=== PATIENT | male | born 1945 | race Caucasian/White ===

== ENCOUNTER → 2017-12-01 | Outpatient (CLI) | payer MEDICARE, OTHER ==
[2017-12-01 10:30] LABS: HGB 13.2 gm/dL (13.0-17.5); MCHC 33.8 g/dL (31.0-37.0); MCV 91.7 fL (80.0-100.0); Mean Platelet Volume 8.5; Platelet Count 175 k/uL (150-450); RBC 4.26 m/uL (4.30-5.90); RDW 14.4 % (11.5-15.5); WBC 6.1 k/uL (3.8-10.6)
[2017-12-01 10:36] LABS: Anion Gap 10 mmol/L; Blood Urea Nitrogen 16 mg/dL (9-20); Calcium 9.7 mg/dL (8.4-10.2); Carbon Dioxide 28 mmol/L (22-30); Chloride 101 mmol/L (98-107); Glucose 113 mg/dL (74-99); Potassium 4.6 mmol/L (3.5-5.1); Sodium 139 mmol/L (137-145)
== END | disposition home or self-care (01) ==
LOC: LABWHC1 09:47
PROVIDERS: ATTEND Internal Medicine Clinical Cardiac Electrophysiology
DX: I25.5 Ischemic cardiomyopathy (principal); I50.22 Chronic systolic (congestive) heart failure
CPT/HCPCS: 36415; 80048; 85027

== ENCOUNTER 2017-12-08 13:45 | Day surgery (SDC) | payer MEDICARE, OTHER ==
[2017-12-02 15:45] VITALS: BMI 27.1
[~2017-12-08 13:45] MED LIST: LACTATED RINGERS 1,000 ML IV SCH; SODIUM CHLORIDE 0.9% 1,000 ML IV SCH
[2017-12-08] MEDS ORDERED: ceFAZolin IN SWFI 2 GM/20 ML SYRINGE IVP ONE (14:00)
[2017-12-08] MEDS ORDERED: fentaNYL (PF) 50 MCG/ML 2 ML AMP ONE (17:49)
[2017-12-08] MEDS ORDERED: PROPOFOL 10 MG/ML 20 ML VIAL IV ONE (17:49)
[2017-12-08] MEDS ORDERED: MIDAZOLAM 2 MG/2 ML VIAL ONE (17:49)
[2017-12-08] MEDS ORDERED: IOPAMIDOL-370 50ML BTL INJ ONE (18:08)
[2017-12-08] MEDS: ceFAZolin 1,000 MG in SODIUM CHLORIDE 0.9% IRRIGATIO 250 ML IRRIGATION ONE ×2 (18:25→19:06)
[2017-12-08] MEDS ORDERED: LIDOCAINE 2% INJ 20 MG/ML SQ ONE (18:31)
[2017-12-08] MEDS ORDERED: LIDOCAINE 1% INJ 10MG/ML (20 ML MDV) SQ ONE (18:42)
[2017-12-08] MEDS ORDERED: SODIUM CHLORIDE 0.9% 500 ML IV ONE (19:37)
[2017-12-08] MEDS ORDERED: HYDROcodone/APAP 5-325MG 1 EACH TAB PO PRN (19:49)
[2017-12-08] MEDS ORDERED: ACETAMINOPHEN TAB 325 MG TAB PO PRN (19:49)
[2017-12-08] MEDS ORDERED: ACETAMINOPHEN IV (For NPO) 1,000 MG in EMPTY BAG 1 BAG IVPB ONE (20:30)
[2017-12-08] MEDS ORDERED: ATORVASTATIN 80 MG TAB PO SCH (21:30)
--- NOTE | 2017-12-08 22:22 | PCN ---
PROCEDURE NOTE Earl Cerrato is a 72-year-old male patient who has had a large anterior wall infarct and despite revascularization guideline directed medical treatment over the last 3 months, his ejection fraction has remained between 30-35%. He has class 2 heart failure symptoms. He has a right bundle branch block and followup Holter monitor showed sick sinus syndrome incompetence. Dual-chamber ICD was implanted for primary prevention of sudden cardiac and atrial pacing along with further maximization of beta dennis therapy following dual-chamber device implant. DESCRIPTION OF THE PROCEDURE: The patient is brought to the EP lab in a fasting state. Written informed consent was obtained prior to the procedure. The left shoulder area was prepped and draped as per protocol. 1% lidocaine was used for local anesthesia. A 4 cm incision was made parallel to the deltopectoral groove, about 1.5 cm medial to it. The incision was carried down to the level of the pectoralis muscle. A subfascial pocket was made. Hemostasis was assured. The left axillary vein was accessed at 2 separate points under fluoroscopy and via appropriately-sized introducer sheaths 2 leads were positioned the right heart. The atrial lead was a [employer] model #2088TC, 52 cm in length, 2088TC, 52 cm length and serial number [id number]. This was screwed in the right atrial appendage. P waves 4.1 mV pacing impedance 560 ohms, pacing threshold 0.75 V at 0.5 milliseconds. The RV lead was initially implanted in the RV septum. However, the R-waves after about 10 to 15 minutes became diminutive and therefore this was repositioned in the RV apex. R-waves were 10.3 mV, pacing impedance 560 ohms, pacing threshold 0.75 V at 0.5 milliseconds, 10 V test negative. Both leads were secured to the underlying pectoralis fascia using 2 nonabsorbable sutures. Pocket was irrigated with antibiotic solution. Leads were connected to the generator ([employer] CD 2411-36 Q serial #[id number]). The ICD lead was model #7122Q 58 cm in length and serial number [id number]. Once the wound was closed in 3 layers and the device was implanted, DFT testing was performed. A DC fib shock was used to induce ventricular fibrillation. This was adequately and appropriately detected at least sensitivity. A 10 joule shock was unsuccessful in the catheter total configured vector. A 20 joule shock was successful. The charge time of the 2nd shock was 4 seconds, shock impedance 69 ohms. No post shock noise. The device in program programming, DDD pacing with a long AV delay in the VIP mode was programmed. The patient tolerated the procedure well without acute complications. RESULTS: Successful dual chamber ICD implantation for primary prevention of sudden cardiac for chronic ischemic cardiomyopathy with an old anterior wall infarct, large anterior wall infarct with ejection fraction 30 to 35%. Unstageable class 2 heart failure symptoms and appropriate medical treatment. MMODL / IJN: [id number] /
--- NOTE | 2017-12-08 22:22 | LTR ---
DATE OF SERVICE: 12/08/[address] Crocker: I had the pleasure of seeing Earl Cerrato in electrophysiology followup. As you recall, Earl experienced a large anterior wall infarct and ejection fraction has remained at 30-35% despite percutaneous revascularization and appropriate medical treatment. Therefore 3 months after his original infarct, dual-chamber ICD was implanted today, successfully. Hopefully, we can further increase the beta dennis dose after this. Thank you for entrusting me in the care of your patient. Warm regards, Sincerely, LONA / TANNERN: [id number] /
[2017-12-08] MEDS: CARVEDILOL 12.5 MG TAB PO SCH (22:47)
[2017-12-08] MEDS: TICAGRELOR 90 MG TAB PO SCH (22:47)
[2017-12-08] MEDS: ceFAZolin IN SWFI 2 GM/20 ML SYRINGE IVP SCH (23:37)
[2017-12-09] MEDS: ceFAZolin IN SWFI 2 GM/20 ML SYRINGE IVP SCH ×3 (06:12→17:22)
[2017-12-09 07:58] VITALS: RESP 18
--- NOTE | 2017-12-09 08:15 | XR ---
EXAMINATION TYPE: XR chest 2V DATE OF EXAM: 12/09/2017 COMPARISON: Prior chest x-ray 07/28/2017 HISTORY: Lead placement check TECHNIQUE: Frontal and lateral views of the chest are obtained on 3 images. FINDINGS: There is been interval placement of a generator in the left pectoral region. Intracardiac defibrillator leads are present in the right atrium and ventricle. No evident pneumothorax or pleural effusion. Cardiac mediastinal silhouette, pulmonary vascularity and giuliana are stable. IMPRESSION: No evident complication status post defibrillator placement.
[2017-12-09] MEDS: CARVEDILOL 12.5 MG TAB PO SCH (08:23)
[2017-12-09] MEDS: TICAGRELOR 90 MG TAB PO SCH (08:23)
[2017-12-09] MEDS ORDERED: MAGNESIUM OXIDE 400 MG TAB PO SCH (09:00)
[2017-12-09] MEDS ORDERED: NON-FORMULARY DRUG (Fish Oil/Dha/Epa [Fish Oil 1,200 Mg Fish Oil] 1 CAP) PO SCH (09:00)
[2017-12-09] MEDS ORDERED: LOSARTAN 25 MG TAB PO SCH (09:00)
[2017-12-09] MEDS ORDERED: SPIRONOLACTONE 25 MG TAB PO SCH (09:00)
[2017-12-09] MEDS ORDERED: BORAGE OIL PO SCH (09:00)
[2017-12-09] MEDS ORDERED: [UNRECOGNIZED DRUG - OTHER] PO SCH (09:00)
[2017-12-09] MEDS ORDERED: ASPIRIN 81 MG PO SCH (09:00)
[2017-12-09] MEDS ORDERED: MULTIVITAMINS, THERA 1 EACH TAB PO SCH (12:00)
[2017-12-09] MEDS ORDERED: CALCIUM CARB-VIT D 500MG-200UN 1 EACH TAB PO SCH (12:00)
[2017-12-09] MEDS ORDERED: CYANOCOBALAMIN 500 MCG TAB PO SCH (12:00)
[2017-12-09 16:25] VITALS: BP 124/70; PULSE 54; TEMP 98.3
== END 2017-12-09 18:35 | disposition home or self-care (01) ==
LOC: CATHEP 13:45 → 3OBS 20:15 → CATHEP 12-09 18:35
PROVIDERS: ATTEND Internal Medicine Clinical Cardiac Electrophysiology
DX: I25.5 Ischemic cardiomyopathy (principal); I11.0 Hypertensive heart disease with heart failure; I50.22 Chronic systolic (congestive) heart failure; I49.5 Sick sinus syndrome; I25.2 Old myocardial infarction; I45.10 Unspecified right bundle-branch block; I49.8 Other specified cardiac arrhythmias; E78.5 Hyperlipidemia, unspecified; Z79.02 Long term (current) use of antithrombotics/antiplatelets; Z79.82 Long term (current) use of aspirin; Z79.899 Other long term (current) drug therapy; Z88.2 Allergy status to sulfonamides
CPT/HCPCS: 93641; 33249; 71046; C1892; C1769 ×2; C1898; C1777; C1721; J2001 ×2; J2250; J0690 ×3; J3010; J2704; Q9967

== ENCOUNTER 2019-09-11 06:42 | Inpatient (IN) | payer MEDICARE, OTHER ==
[2019-09-11] MEDS ORDERED: KETOROLAC 30 MG/ML 1 ML VIAL IVP STA (07:05)
[2019-09-11] MEDS ORDERED: SODIUM CHLORIDE 0.9% 500 ML 500 ML IV STA (07:05)
--- NOTE | 2019-09-11 07:13 | ED ---
Abdominal Pain HPI <EmeryTodd - Last Filed: 09/11/19 09:05> - General Source: patient Mode of arrival: ambulatory Limitations: no limitations <Marla Cassidy - Last Filed: 09/11/19 09:25> - General Chief Complaint: Abdominal Pain Stated Complaint: Gallbladder attack Time Seen by Provider: 09/11/19 06:52 - History of Present Illness Initial Comments: Patient is a 74-year-old male, with hypertension, heart disease, presenting to emergency Department with complaints of right upper quadrant pain that has been intermittent for the last 2 weeks. Patient states his pain increased since last night and he presents today with a 6/10 pain. Patient states he went to his PCP last week for this pain and his blood work was normal. They suggested he was constipated. Patient continued to have intermittent pain with some radiation into his right back. Patient denies any history of abdominal surgeries. He is last bowel movement was yesterday. Patient does admit to mild nausea, no vomiting, no fever, no diarrhea. Patient denies chest pain, shortness of breath. He has no other complaints at this time. Upon arrival to the ER, his vital signs are normal. (Marla Cassidy) - Related Data Home Medications Medication Instructions Recorded Confirmed Borage Oil 1000 Mg 1,000 mg PO DAILY 07/28/17 12/08/17 Calcium Carbonate/Vitamin D3 1 tab PO DAILY 07/28/17 12/08/17 [Calcium 600-Vit D3 200 Tablet] Cyanocobalamin (Vitamin B-12) 5,000 mcg PO DAILY 07/28/17 12/08/17 [Vitamin B-12] Fish Oil/Dha/Epa [Fish Oil 1,200 1 cap PO DAILY 07/28/17 12/08/17 mg Fish Oil] Magnesium Gluconate [Magonate] 500 mg PO DAILY 07/28/17 12/08/17 Alpha Green 500 mg PO DAILY 12/02/17 Formula 303 2 tab PO DAILY 12/02/17 Losartan [Cozaar] 25 mg PO DAILY 12/02/17 12/08/17 Multivitamin [Men's Multi-Vitamin] 1 each PO DAILY 12/02/17 12/08/17 Previous Rx's Medication Instructions Recorded Aspirin 81 mg PO DAILY #30 chew 07/31/17 Atorvastatin [Lipitor] 80 mg PO HS #30 tab 07/31/17 Carvedilol [Coreg*] 12.5 mg PO BID-W/MEALS #60 tab 07/31/17 Nitroglycerin Sl Tabs [Nitrostat] 0.4 mg SUBLINGUAL Q5M PRN #25 tab 07/31/17 Spironolactone [Aldactone] 50 mg PO DAILY #30 tab 07/31/17 Ticagrelor [Brilinta] 90 mg PO BID #60 tab 07/31/17 Allergies Allergy/AdvReac Type Severity Reaction Status Date / Time Sulfa (Sulfonamide Allergy Rash/Hives Verified 09/11/19 06:51 Antibiotics) Review of Systems ROS Other: All systems not noted in ROS Statement are negative. <Todd Emery - Last Filed: 09/11/19 09:05> ROS Other: All systems not noted in ROS Statement are negative. <Marla Cassidy - Last Filed: 09/11/19 09:25> ROS Statement: Those systems with pertinent positive or pertinent negative responses have been documented in the HPI. Past Medical History Past Medical History: Hypertension Additional Past Medical History / Comment(s): past broken nose, dara fever as child, arthrits. 07-28-17 stemi History of Any Multi-Drug Resistant Organisms: None Reported Past Surgical History: No Surgical Hx Reported Additional Past Surgical History / Comment(s): ICD Past Anesthesia/Blood Transfusion Reactions: No Reported Reaction Past Psychological History: No Psychological Hx Reported Smoking Status: Current every day smoker Past Alcohol Use History: Occasional Past Drug Use History: None Reported - Past Family History Mother Family Medical History: Diabetes Mellitus Father Family Medical History: Cancer Additional Family Medical History / Comment(s): prostate cancer <Marla Cassidy - Last Filed: 09/11/19 09:25> General Exam Limitations: no limitations <Marla Cassidy - Last Filed: 09/11/19 09:25> - General Exam Comments Initial Comments: GENERAL: Well-appearing, well-nourished and in no acute distress. HEAD: Atraumatic, normocephalic. EYES: Pupils equal round and reactive to light, extraocular movements intact, sclera anicteric, conjunctiva are normal. ENT: TMs normal, nares patent, oropharynx clear without exudates. Moist mucous membranes. NECK: Normal range of motion, supple without lymphadenopathy or JVD. LUNGS: Breath sounds clear to auscultation bilaterally and equal. No wheezes rales or rhonchi. HEART: Regular rate and rhythm without murmurs, rubs or gallops. ABDOMEN: Mild tenderness in the right upper quadrant. Soft, normoactive bowel sounds. No guarding, no rebound. No masses appreciated. : Deferred EXTREMITIES: Normal range of motion, no pitting or edema. No clubbing or cyanosis. NEUROLOGICAL: Normal speech, normal gait. PSYCH: Normal mood, normal affect. SKIN: Warm, Dry, normal turgor, no rashes or lesions noted. (Marla Cassidy) Course Vital Signs 09/11/19 09/11/19 06:48 08:59 Temperature 97.4 F L 97.9 F Pulse Rate 69 68 Respiratory 20 18 Rate Blood Pressure 109/69 119/74 O2 Sat by Pulse 98 97 Oximetry Medical Decision Making - Lab Data Result diagrams: 09/11/19 07:01 09/11/19 07:01 <Todd Emery - Last Filed: 09/11/19 09:05> - Lab Data Result diagrams: 09/11/19 07:01 09/11/19 07:01 <Marla Cassidy - Last Filed: 09/11/19 09:25> - Medical Decision Making I, Hernan Emery, personally saw and examined the patient. I have reviewed and agree with the PA findings, including all diagnostic interpretations and treatment plans as written unless otherwise stated. I was present for the freedman portions of any procedures performed and the inclusive time noted for any critical care statement. (Todd Emery) Patient is a 74-year-old male presenting with right upper quadrant pain has been intermittent for the last 2 weeks with an increase in severity the last 12 hours. Vital signs are stable upon arrival. Lab work shows an increase in liver enzymes from 12 days ago, total bilirubin is 3.3, lipase is 641. Patient is slightly hyponatremic. Potassium is 5.6. Urine shows 1+ bilirubin, no other acute findings. Ultrasound reveals possible acute cholecystitis. Multiple cysts within the liver. Patient was given fluids and pain control. His comp at this time. Patient will be admitted with surgery and GI consult. Patient was started on antibiotics. Patient accepted by Dr. Glover. Case discussed with Dr. Huertas who agrees this plan of care. (Marla Cassidy) - Lab Data Lab Results 09/11/19 09/11/19 09/11/19 Range/Units 07:01 07:01 07:01 WBC 7.1 (3.8-10.6) k/uL RBC 4.31 (4.30-5.90) m/uL Hgb 13.6 (13.0-17.5) gm/dL Hct 41.5 (39.0-53.0) % MCV 96.2 (80.0-100.0) fL MCH 31.5 (25.0-35.0) pg MCHC 32.8 (31.0-37.0) g/dL RDW 13.0 (11.5-15.5) % Plt Count 216 (150-450) k/uL Neutrophils % 68 % Lymphocytes % 17 % Monocytes % 9 % Eosinophils % 2 % Basophils % 1 % Neutrophils # 4.8 (1.3-7.7) k/uL Lymphocytes # 1.2 (1.0-4.8) k/uL Monocytes # 0.6 (0-1.0) k/uL Eosinophils # 0.1 (0-0.7) k/uL Basophils # 0.0 (0-0.2) k/uL PT 12.7 H (9.0-12.0) sec INR 1.3 H (<1.2) APTT 30.1 H (22.0-30.0) sec Sodium 132 L (137-145) mmol/L Potassium 5.6 H (3.5-5.1) mmol/L Chloride 105 (98-107) mmol/L Carbon Dioxide 16 L (22-30) mmol/L Anion Gap 11 mmol/L BUN 25 H (9-20) mg/dL Creatinine 0.76 (0.66-1.25) mg/dL Est GFR (CKD-EPI)AfAm >90 (>60 ml/min/1.73 sqM) Est GFR (CKD-EPI)NonAf >90 (>60 ml/min/1.73 sqM) Glucose 125 H (74-99) mg/dL Calcium 8.6 (8.4-10.2) mg/dL Total Bilirubin 3.3 H (0.2-1.3) mg/dL AST 237 H (17-59) U/L ALT 354 H (4-49) U/L Alkaline Phosphatase 270 H (38-126) U/L Total Protein 7.7 (6.3-8.2) g/dL Albumin 4.1 (3.5-5.0) g/dL Amylase 78 (30-110) U/L Lipase 641 H (23-300) U/L Urine Color Urine Appearance (Clear) Urine pH (5.0-8.0) Ur Specific Roark (1.001-1.035) Urine Protein (Negative) Urine Glucose (UA) (Negative) Urine Ketones (Negative) Urine Blood (Negative) Urine Nitrite (Negative) Urine Bilirubin (Negative) Urine Urobilinogen (<2.0) mg/dL Ur Leukocyte Esterase (Negative) Urine RBC (0-5) /hpf Urine WBC (0-5) /hpf Ur Squamous Epith Cells (0-4) /hpf Hyaline Casts (0-2) /lpf Urine Mucus (None) /hpf 09/11/19 Range/Units 08:52 WBC (3.8-10.6) k/uL RBC (4.30-5.90) m/uL Hgb (13.0-17.5) gm/dL Hct (39.0-53.0) % MCV (80.0-100.0) fL MCH (25.0-35.0) pg MCHC (31.0-37.0) g/dL RDW (11.5-15.5) % Plt Count (150-450) k/uL Neutrophils % % Lymphocytes % % Monocytes % % Eosinophils % % Basophils % % Neutrophils # (1.3-7.7) k/uL Lymphocytes # (1.0-4.8) k/uL Monocytes # (0-1.0) k/uL Eosinophils # (0-0.7) k/uL Basophils # (0-0.2) k/uL PT (9.0-12.0) sec INR (<1.2) APTT (22.0-30.0) sec Sodium (137-145) mmol/L Potassium (3.5-5.1) mmol/L Chloride (98-107) mmol/L Carbon Dioxide (22-30) mmol/L Anion Gap mmol/L BUN (9-20) mg/dL Creatinine (0.66-1.25) mg/dL Est GFR (CKD-EPI)AfAm (>60 ml/min/1.73 sqM) Est GFR (CKD-EPI)NonAf (>60 ml/min/1.73 sqM) Glucose (74-99) mg/dL Calcium (8.4-10.2) mg/dL Total Bilirubin (0.2-1.3) mg/dL AST (17-59) U/L ALT (4-49) U/L Alkaline Phosphatase (38-126) U/L Total Protein (6.3-8.2) g/dL Albumin (3.5-5.0) g/dL Amylase (30-110) U/L Lipase (23-300) U/L Urine Color Dark Yellow Urine Appearance Clear (Clear) Urine pH 5.5 (5.0-8.0) Ur Specific Roark 1.024 (1.001-1.035) Urine Protein Trace H (Negative) Urine Glucose (UA) Negative (Negative) Urine Ketones Negative (Negative) Urine Blood Trace H (Negative) Urine Nitrite Negative (Negative) Urine Bilirubin 1+ H (Negative) Urine Urobilinogen <2.0 (<2.0) mg/dL Ur Leukocyte Esterase Trace H (Negative) Urine RBC 2 (0-5) /hpf Urine WBC 1 (0-5) /hpf Ur Squamous Epith Cells <1 (0-4) /hpf Hyaline Casts 28 H (0-2) /lpf Urine Mucus Few H (None) /hpf - EKG Data EKG Comments: Ventricular rate 55, IL interval 190, QTc 441. And his bradycardia, right bundle branch block. No acute ST segment changes. (Marla Cassidy) Disposition <Todd Emery - Last Filed: 09/11/19 09:05> Is patient prescribed a controlled substance at d/c from ED?: No Decision Date: 09/11/19 Decision Time: 09:07 <Marla Cassidy - Last Filed: 09/11/19 09:25> Clinical Impression: Acute cholecystitis, Pancreatitis Disposition: ADMITTED IP TO THIS [facility] Condition: Stable Referrals: Collins Waddell [Primary Care Provider] - 1-2 days
[2019-09-11 07:19] LABS: Basophils % (A) 1 %; Eosinophils # (A) 0.1 k/uL (0-0.7); Eosinophils % (A) 2 %; HCT 41.5 % (39.0-53.0); HGB 13.6 gm/dL (13.0-17.5); Lymphocytes # (A) 1.2 k/uL (1.0-4.8); Lymphocytes % (A) 17 %; MCH 31.5 pg (25.0-35.0); MCHC 32.8 g/dL (31.0-37.0); MCV 96.2 fL (80.0-100.0); Monocytes # (A) 0.6 k/uL (0-1.0); Monocytes % (A) 9 %; Neutrophils # (A) 4.8 k/uL (1.3-7.7); Neutrophils % (A) 68 %; Platelet Count 216 k/uL (150-450); RBC 4.31 m/uL (4.30-5.90); WBC 7.1 k/uL (3.8-10.6)
[2019-09-11 07:30] LABS: ALT 354 U/L (4-49); African American GFR (CKD) >90 (>60 ml/min/1.73 sqM); Albumin 4.1 g/dL (3.5-5.0); Amylase 78 U/L (30-110); Anion Gap 11 mmol/L; Blood Urea Nitrogen 25 mg/dL (9-20); Calcium 8.6 mg/dL (8.4-10.2); Carbon Dioxide 16 mmol/L (22-30); Chloride 105 mmol/L (98-107); Glucose 125 mg/dL (74-99); INR 1.3 (<1.2); Non-African American GFR(CKD) >90 (>60 ml/min/1.73 sqM); Partial Thromboplastin Time 30.1 sec (22.0-30.0); Prothrombin Time 12.7 sec (9.0-12.0); Sodium 132 mmol/L (137-145); Total Bilirubin 3.3 mg/dL (0.2-1.3); Total Protein 7.7 g/dL (6.3-8.2)
[2019-09-11 07:39] LABS: AST 237 U/L (17-59); Alkaline Phosphatase 270 U/L (38-126); Potassium 5.6 mmol/L (3.5-5.1)
--- NOTE | 2019-09-11 08:47 | US ---
EXAMINATION TYPE: US gallbladder DATE OF EXAM: 09/11/2019 COMPARISON: NONE CLINICAL HISTORY: RUQ pain. Nausea, back pain EXAM MEASUREMENTS: Liver Length: 18.7 cm Gallbladder Wall: 0.2 cm CBD: 1.3 cm tapering to 1.1cm towards head of pancreas Right Kidney: 11.8 x 6.9 x 4.6 cm Pancreas: mildly heterogeneous Liver: multiple liver cysts with largest in left = 3.4 x 3.5 x 3.4cm and largest in right lobe = 5.4 x 5.2 x 5.2cm Gallbladder: multiple shadowing stones, some mobile but couple of nonmobile shadowing stones seen wi thin neck in LLD; sludge noted within Evidence for sonographic Sheikh's sign: yes CBD: abnormally dilated throughout Right Kidney: No hydronephrosis or masses seen; hypoechoic crescent shaped area adjacent to lower ri ght renal cortex suggests sonographic"sweat sign" for renal failure. The pancreas is not well-visualized. There are multiple cysts within the liver which are not simply cystic. The largest is within the righ t lower liver measuring 5.4 cm. There are multiple calculi within the gallbladder. The gallbladder wall measures 2 mm. The common hep atic duct measures 1.3 cm. There is a positive sonographic Sheikh's sign There is no hydronephrosis or right renal mass lesion. IMPRESSION: 1. CHOLELITHIASIS AND POSSIBLE ACUTE CHOLECYSTITIS. 2. MULTIPLE CYSTS WITHIN THE LIVER WHICH IS NOT SIMPLY CYSTIC. FURTHER INVESTIGATION WITH CT OR MRI W [facility]ULD BE SUGGESTED.
[2019-09-11] MEDS ORDERED: NALOXONE 0.4 MG/ML 1 ML VIAL IV PRN (09:02)
[2019-09-11] MEDS ORDERED: ONDANSETRON 4 MG/2 ML VIAL IVP PRN (09:02)
[2019-09-11] MEDS ORDERED: MORPHINE SULFATE 4 MG/ML SYRINGE IV PRN (09:02)
[2019-09-11] MEDS ORDERED: KETOROLAC 30 MG/ML 1 ML VIAL IVP PRN (09:02)
[2019-09-11] MEDS ORDERED: SODIUM CHLORIDE 0.9% 1,000 ML IV SCH (09:15)
[2019-09-11 09:17] LABS: Appearance,Urine Clear (Clear); Bilirubin,Urine 1+ (Negative); Blood,Urine Trace (Negative); Color,Urine Dark Yellow; Glucose,Urine (UA) Negative (Negative); Hyaline Casts,Urine 28 /lpf (0-2); Ketones,Urine Negative (Negative); Leukocyte Esterase,Urine Trace (Negative); Mucus,Urine Few /hpf; Nitrite,Urine Negative (Negative); PH, Urine 5.5 (5.0-8.0); Protein,Urine Trace (Negative); RBC,Urine 2 /hpf (0-5); Specific Gravity,Urine 1.024 (1.001-1.035); Squamous Epithelial Cell,Urine <1 /hpf (0-4); Urobilinogen,Urine <2.0 mg/dL (<2.0); WBC,Urine 1 /hpf (0-5)
[2019-09-11] MEDS ORDERED: PIPERACILLIN-TAZOBACTAM 3.375 GM in SODIUM CHLORIDE 0.9% 100 ML IVPB STA (09:22)
--- NOTE | 2019-09-11 09:50 | XR ---
EXAMINATION TYPE: XR chest 2V DATE OF EXAM: 09/11/2019 HISTORY: pain. REFERENCE: Previous study dated 12/09/2017. FINDINGS: A bipolar pacemaker is in place on the left. Heart size is normal. The lungs are clear. Pleural spaces are clear. IMPRESSION: NO ACUTE INTRATHORACIC ABNORMALITY.
[2019-09-11] MEDS: SODIUM BICARBONATE TAB 650 MG TAB PO SCH ×3 (11:00→20:32)
[2019-09-11 11:35] LABS: African American GFR (CKD) >90 (>60 ml/min/1.73 sqM); Anion Gap 8 mmol/L; Blood Urea Nitrogen 24 mg/dL (9-20); Calcium 8.1 mg/dL (8.4-10.2); Carbon Dioxide 18 mmol/L (22-30); Chloride 106 mmol/L (98-107); Glucose 125 mg/dL (74-99); Non-African American GFR(CKD) 90 (>60 ml/min/1.73 sqM); Potassium 5.1 mmol/L (3.5-5.1); Sodium 132 mmol/L (137-145)
--- NOTE | 2019-09-11 12:20 | P.HPIM ---
History of Present Illness Chief Complaint: Abdominal pain Please note that initial H&P note disappeared from [employer] after saving it due to [employer] issues. This is a dictation of a new note. This is a 74-year-old male history of coronary disease and CHF who presented to emergency department due to abdominal pain. Initially pain started about 3 months ago was epigastric and provoked by food which patient attributed to heartburns. 2 weeks prior to this admission pain moved to right upper quadrant, became more intense and colicky in nature and also provoked by food. Initial evaluation in his PCP office showed normal blood work and pain was attributed to constipation. Week prior to the admission patient took laxatives but did not improve the pain. 22 days prior to this admission the pain became more intense in the right upper quadrant with radiation to the right shoulder colicky nature intermittent lasting about 30 minutes and present with and without food intake. Patient notices darkening of his urine. Since he did not have any bowel movement for the last few days he cannot tell if stools became pale as well. Patient denies any nausea or vomiting. Denies any fever chills malaise or sweating. There is no back pain or dysuria. In emergency department blood work showed elevated bilirubin and alk phos and liver enzymes and lipase. Ultrasound of the right upper quadrant showed CBD dilation with possible acute cholecystitis. Patient was given IV fluids, Zosyn and pain medications admitted to the floor. His was discussed with general surgery. During my interview patient denied any ongoing abdominal pain nausea or vomiting. He denies any shortness of breath or chest pain or any other discomfort. Patient has a strong family history of cholelithiasis. He reports on and off intolerance of fatty food for many years which he has been attributing to GERD. He denies he denies any recent appetite or weight loss. Past medical history includes coronary artery disease with PCI done about 2 years ago with 4 stent insertion. For that he's taking Coreg, aspirin every other day and atorvastatin. Also about a year ago patient had ICD insertion due to cardiomyopathy. He is last EF was about 30-35% about a year ago. He follows with Dr. Patiño. He is on Xarelto but cannot tell me exact reason. Last dose of Xarelto was 24 hours ago, more precisely yesterday morning. Overall patient states that he is cardiac issues have been stable without any chest pain or shortness of breath. He is quite active headache and climb 2 flights of stairs without any shortness of breath or chest pain. He does not have any orthopnea PND or leg swelling. Review of Systems Review of system was done and negative except mentioned in HPI Past Medical History Past Medical History: Hypertension, Myocardial Infarction ([place]) Additional Past Medical History / Comment(s): past broken nose, dara fever as child, arthrits. 07-28-17 stemi Last Myocardial Infarction Date:: 07/28/2017 History of Any Multi-Drug Resistant Organisms: None Reported Past Surgical History: Heart Catheterization With Stent, Tonsillectomy Additional Past Surgical History / Comment(s): ICD Past Anesthesia/Blood Transfusion Reactions: No Reported Reaction Date of Last Stent Placement:: 07/28/2017 Past Psychological History: No Psychological Hx Reported Additional Psychological History / Comment(s): pt is independant. lives with his and 2 pet dogs. 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 Smoking Status: Never smoker Past Alcohol Use History: Occasional Past Drug Use History: None Reported - Past Family History Mother Family Medical History: Diabetes Mellitus Father Family Medical History: AICD/Pacemaker, Cancer Additional Family Medical History / Comment(s): prostate cancer Medications and Allergies Home Medications Medication Instructions Recorded Confirmed Type Borage Oil 1000 Mg 1,000 mg PO DAILY 07/28/17 09/11/19 History Fish Oil/Dha/Epa [Fish Oil 1,200 1 cap PO DAILY 07/28/17 09/11/19 History mg Fish Oil] Magnesium Gluconate [Magonate] 500 mg PO DAILY 07/28/17 09/11/19 History Atorvastatin [Lipitor] 80 mg PO HS #30 tab 07/31/17 09/11/19 Rx Nitroglycerin Sl Tabs [Nitrostat] 0.4 mg SUBLINGUAL Q5M PRN #25 tab 07/31/17 09/11/19 Rx Spironolactone [Aldactone] 50 mg PO DAILY #30 tab 07/31/17 09/11/19 Rx Alpha Green 1,000 mg PO DAILY 12/02/17 09/11/19 History Formula 303 2 tab PO DAILY 12/02/17 09/11/19 History Losartan [Cozaar] 25 mg PO DAILY 12/02/17 09/11/19 History Multivitamin [Men's Multi-Vitamin] 1 each PO DAILY 12/02/17 09/11/19 History Aspirin 81 mg PO MOWEFR 09/11/19 09/11/19 History Calcium Carbonate [Calcium] 600 mg PO DAILY 09/11/19 09/11/19 History Carvedilol [Coreg] 6.25 mg PO BID 09/11/19 09/11/19 History Cyanocobalamin [Vitamin B-12] 500 mcg PO DAILY 09/11/19 09/11/19 History Rivaroxaban [Xarelto] 20 mg PO DAILY 09/11/19 09/11/19 History Sacubitril/Valsartan [Entresto 24 1 tab PO BID 09/11/19 09/11/19 History mg-26 mg Tablet] Allergies Allergy/AdvReac Type Severity Reaction Status Date / Time Sulfa (Sulfonamide Allergy Rash/Hives Verified 09/11/19 06:51 Antibiotics) Physical Exam Vitals: Vital Signs Temp Pulse Pulse Resp BP BP Pulse Ox 09/11/19 10:00 97.7 F 63 16 121/74 98 09/11/19 08:59 97.9 F 68 18 119/74 97 09/11/19 06:48 97.4 F L 69 20 109/69 98 Intake and Output 09/10/19 09/11/19 09/11/19 22:59 06:59 14:59 Other: Voiding Method Toilet Weight 98.883 kg 98.883 kg Vital Signs: I have reviewed the vital signs. GENERAL: Well-nourished, Well-developed , no apparent distress, cooperative Eyes: PERRL, extraoculry movements intact, clear conjunctiva Head: : Atraumatic external nose and ears, oropharyngeal mucosa is moist without lesions or exudates Neck: Symmetric, trachea midline, No thyromegaly, no masses or neck vain pulsation, no neck rigidity CVS: +S1/S2, No murmurs or gallops. Peripheral pulses 2+ and equal in all extremities. RESP: Unlabored respiratory effort. Clear to auscultation bilaterally. Abdomen: Bowel sounds present in all 4 quadrants, Soft to palpation, Nontender/Nondistended, No hepatosplenomegaly, no hernias or masses, no CVA tnderness Musculoskeletal: Extremities w/o deformity, No cyanosis or clubbing, no joint swelling Skin: Warm, Dry. No rashes or lesions Neuro: registration rep II-XII grossly intact, motor strenght 5/5 i upper and lower extremities, no clonus, patellar DTRs 2+ and sympetrical Psych: Awake, Alert, & Oriented (AAO) x3 Appropriate mood and affect Results CBC & Chem 7: 09/11/19 07:01 09/11/19 11:02 Labs: Abnormal Lab Results - Last 24 Hours (Table) 09/11/19 09/11/19 09/11/19 Range/Units 07:01 07:01 08:52 PT 12.7 H (9.0-12.0) sec INR 1.3 H (<1.2) APTT 30.1 H (22.0-30.0) sec Sodium 132 L (137-145) mmol/L Potassium 5.6 H (3.5-5.1) mmol/L Carbon Dioxide 16 L (22-30) mmol/L BUN 25 H (9-20) mg/dL Glucose 125 H (74-99) mg/dL Plasma Lactic Acid Enio (0.7-2.0) mmol/L Calcium (8.4-10.2) mg/dL Total Bilirubin 3.3 H (0.2-1.3) mg/dL AST 237 H (17-59) U/L ALT 354 H (4-49) U/L Alkaline Phosphatase 270 H (38-126) U/L Lipase 641 H (23-300) U/L Urine Protein Trace H (Negative) Urine Blood Trace H (Negative) Urine Bilirubin 1+ H (Negative) Ur Leukocyte Esterase Trace H (Negative) Hyaline Casts 28 H (0-2) /lpf Urine Mucus Few H (None) /hpf 09/11/19 09/11/19 Range/Units 11:02 11:02 PT (9.0-12.0) sec INR (<1.2) APTT (22.0-30.0) sec Sodium 132 L (137-145) mmol/L Potassium (3.5-5.1) mmol/L Carbon Dioxide 18 L (22-30) mmol/L BUN 24 H (9-20) mg/dL Glucose 125 H (74-99) mg/dL Plasma Lactic Acid Enio <0.5 L (0.7-2.0) mmol/L Calcium 8.1 L (8.4-10.2) mg/dL Total Bilirubin (0.2-1.3) mg/dL AST (17-59) U/L ALT (4-49) U/L Alkaline Phosphatase (38-126) U/L Lipase (23-300) U/L Urine Protein (Negative) Urine Blood (Negative) Urine Bilirubin (Negative) Ur Leukocyte Esterase (Negative) Hyaline Casts (0-2) /lpf Urine Mucus (None) /hpf Thrombosis Risk Factor Assmnt - Choose All That Apply Each Factor Represents 1 point: Obesity (BMI >25) Each Risk Factor Represents 2 Points: Age 61-74 years Thrombosis Risk Factor Assessment Total Risk Factor Score: 3 Thrombosis Risk Factor Assessment Level: Moderate Risk Assessment and Plan Assessment: 1. Acute cholecystitis with choledocholithiasis with probable acute or resolving pancreatitis Patient is nontoxic nonseptic appearing in no active symptoms right now No clinical signs suggestive of cholangitis He has extensive family history of cholelithiasis. No history of blood disorders or need for transfusions in the family per patient Elevated liver enzymes, elevation is mild and probably related to sasha docholithiasis and acute cystitis also with use of statin. He denies any excessive Tylenol or drinking. Counseled about [id number] medications use Continue nothing by mouth, IV fluids and antibiotics Gastroenterology and general surgery consultation He cannot have MRCP right now due to ICD in place. Patient is not sure if it's MRI compatible. Hold Xarelto and aspirin and atorvastatin due to elevated liver enzymes For medicine standpoint patient is at moderate risk due to history of coronary artery disease and CHF, but he has been compensated without active cardiac symptoms and he is at acceptable risk to proceed with cholecystectomy and/or ERCP. If surgical intervention planned he should be off of Xarelto at least 2-3 days. If urgent surgery needed minimal 2 days would be advisable. Last dose of Xarelto was yesterday morning, 24 hours ago. 2. Chronic systolic CHF Patient is currently compensated euvolemic and asymptomatic We will hold his spironolactone and Entresto due to mild hyperkalemia and expectant surgery to avoid any precipitation of hypertension Continue Coreg 3. Coronary artery disease With PCI done 2 years ago and stenting 4 Patient appears clinically compensated and stable without any active symptoms Hold aspirin and statin Continue Coreg Cardiology consultation for perioperative evaluation of the patient 4. Hyperkalemia Mild Likely related to medications and acidosis Hold spironolactone and Entresto Repeat labs now 5. non ion gap metabolic acidosis No diarrhea although he did use extensive laxatives in the last few days Check urine for ketones Repeat BMP stat and check lactic acid We'll start patient on oral bicarbonate If bicarb continues to be low may need to change IV fluids to sodium bicarbonate We will avoid ringer lactate for now due to elevation in liver enzymes Patient is a full code is a surrogate decision maker 2 or more days hospital stay expected
--- NOTE | 2019-09-11 12:51 | P.GSCN ---
History of Present Illness Consult date: 09/11/19 Reason for Consult: Cholecystitis, cholelithiasis History of present illness: The patient is a 74-year-old man who presented to the emergency department with abdominal pain. He's had some intermittent pain since April. He would feel pain behind the right shoulder blade. He'll occasionally go to his right upper quadrant. He had several more intense episodes then the discomfort less than. The last few weeks that has been returning. night he took a gallbladder flush that he found on the Internet. After that the patient was developing severe pain. No fevers or chills. No jaundice, tea-colored urine or acholic stool that his noticed. He's feeling better this afternoon after the pain medication and would like something to eat Review of Systems All systems: negative Past Medical History Past Medical History: Hypertension, Myocardial Infarction ([place]) Additional Past Medical History / Comment(s): past broken nose, dara fever as child, arthrits. 07-28-17 stemi Last Myocardial Infarction Date:: 07/28/2017 History of Any Multi-Drug Resistant Organisms: None Reported Past Surgical History: Heart Catheterization With Stent, Tonsillectomy Additional Past Surgical History / Comment(s): ICD Past Anesthesia/Blood Transfusion Reactions: No Reported Reaction Date of Last Stent Placement:: 07/28/2017 Past Psychological History: No Psychological Hx Reported Additional Psychological History / Comment(s): pt is independant. lives with his and 2 pet dogs. 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 Smoking Status: Never smoker Past Alcohol Use History: Occasional Past Drug Use History: None Reported - Past Family History Mother Family Medical History: Diabetes Mellitus Father Family Medical History: AICD/Pacemaker, Cancer Additional Family Medical History / Comment(s): prostate cancer Medications and Allergies Home Medications Medication Instructions Recorded Confirmed Type Borage Oil 1000 Mg 1,000 mg PO DAILY 07/28/17 09/11/19 History Fish Oil/Dha/Epa [Fish Oil 1,200 1 cap PO DAILY 07/28/17 09/11/19 History mg Fish Oil] Magnesium Gluconate [Magonate] 500 mg PO DAILY 07/28/17 09/11/19 History Atorvastatin [Lipitor] 80 mg PO HS #30 tab 07/31/17 09/11/19 Rx Nitroglycerin Sl Tabs [Nitrostat] 0.4 mg SUBLINGUAL Q5M PRN #25 tab 07/31/17 09/11/19 Rx Spironolactone [Aldactone] 50 mg PO DAILY #30 tab 07/31/17 09/11/19 Rx Alpha Green 1,000 mg PO DAILY 12/02/17 09/11/19 History Formula 303 2 tab PO DAILY 12/02/17 09/11/19 History Losartan [Cozaar] 25 mg PO DAILY 12/02/17 09/11/19 History Multivitamin [Men's Multi-Vitamin] 1 each PO DAILY 12/02/17 09/11/19 History Aspirin 81 mg PO MOWEFR 09/11/19 09/11/19 History Calcium Carbonate [Calcium] 600 mg PO DAILY 09/11/19 09/11/19 History Carvedilol [Coreg] 6.25 mg PO BID 09/11/19 09/11/19 History Cyanocobalamin [Vitamin B-12] 500 mcg PO DAILY 09/11/19 09/11/19 History Rivaroxaban [Xarelto] 20 mg PO DAILY 09/11/19 09/11/19 History Sacubitril/Valsartan [Entresto 24 1 tab PO BID 09/11/19 09/11/19 History mg-26 mg Tablet] Allergies Allergy/AdvReac Type Severity Reaction Status Date / Time Sulfa (Sulfonamide Allergy Rash/Hives Verified 09/11/19 06:51 Antibiotics) Surgical - Exam Osteopathic Statement: *. No significant issues noted on an osteopathic structural exam other than those noted in the History and Physical/Consult. Vital Signs Temp Pulse Resp BP Pulse Ox 97.4 F L 69 20 109/69 98 09/11/19 06:48 09/11/19 06:48 09/11/19 06:48 09/11/19 06:48 09/11/19 06:48 - General well developed, well nourished, no distress - Eyes normal ocular movement, no icteric - Neck trachea midline - Respiratory normal expansion, normal respiratory effort, clear to auscultation - Cardiovascular Rhythm: regular - Abdomen Abdomen: soft, tender (Mild right upper quadrant tenderness), no guarding, no rigid, no rebound, no distended Hernia: no umbilical Results - Labs 09/11/19 07:01 09/11/19 11:02 Abnormal Lab Results - Last 24 Hours (Table) 09/11/19 09/11/19 09/11/19 Range/Units 07:01 07:01 08:52 PT 12.7 H (9.0-12.0) sec INR 1.3 H (<1.2) APTT 30.1 H (22.0-30.0) sec Sodium 132 L (137-145) mmol/L Potassium 5.6 H (3.5-5.1) mmol/L Carbon Dioxide 16 L (22-30) mmol/L BUN 25 H (9-20) mg/dL Glucose 125 H (74-99) mg/dL Plasma Lactic Acid Enio (0.7-2.0) mmol/L Calcium (8.4-10.2) mg/dL Total Bilirubin 3.3 H (0.2-1.3) mg/dL AST 237 H (17-59) U/L ALT 354 H (4-49) U/L Alkaline Phosphatase 270 H (38-126) U/L Lipase 641 H (23-300) U/L Urine Protein Trace H (Negative) Urine Blood Trace H (Negative) Urine Bilirubin 1+ H (Negative) Ur Leukocyte Esterase Trace H (Negative) Hyaline Casts 28 H (0-2) /lpf Urine Mucus Few H (None) /hpf 09/11/19 09/11/19 Range/Units 11:02 11:02 PT (9.0-12.0) sec INR (<1.2) APTT (22.0-30.0) sec Sodium 132 L (137-145) mmol/L Potassium (3.5-5.1) mmol/L Carbon Dioxide 18 L (22-30) mmol/L BUN 24 H (9-20) mg/dL Glucose 125 H (74-99) mg/dL Plasma Lactic Acid Enio <0.5 L (0.7-2.0) mmol/L Calcium 8.1 L (8.4-10.2) mg/dL Total Bilirubin (0.2-1.3) mg/dL AST (17-59) U/L ALT (4-49) U/L Alkaline Phosphatase (38-126) U/L Lipase (23-300) U/L Urine Protein (Negative) Urine Blood (Negative) Urine Bilirubin (Negative) Ur Leukocyte Esterase (Negative) Hyaline Casts (0-2) /lpf Urine Mucus (None) /hpf Diabetes panel 09/11/19 09/11/19 Range/Units 07:01 11:02 Sodium 132 L 132 L (137-145) mmol/L Potassium 5.6 H 5.1 (3.5-5.1) mmol/L Chloride 105 106 (98-107) mmol/L Carbon Dioxide 16 L 18 L (22-30) mmol/L BUN 25 H 24 H (9-20) mg/dL Creatinine 0.76 0.80 (0.66-1.25) mg/dL Glucose 125 H 125 H (74-99) mg/dL Calcium 8.6 8.1 L (8.4-10.2) mg/dL AST 237 H (17-59) U/L ALT 354 H (4-49) U/L Alkaline Phosphatase 270 H (38-126) U/L Total Protein 7.7 (6.3-8.2) g/dL Albumin 4.1 (3.5-5.0) g/dL Calcium panel 09/11/19 09/11/19 Range/Units 07:01 11:02 Calcium 8.6 8.1 L (8.4-10.2) mg/dL Albumin 4.1 (3.5-5.0) g/dL Pituitary panel 09/11/19 09/11/19 Range/Units 07:01 11:02 Sodium 132 L 132 L (137-145) mmol/L Potassium 5.6 H 5.1 (3.5-5.1) mmol/L Chloride 105 106 (98-107) mmol/L Carbon Dioxide 16 L 18 L (22-30) mmol/L BUN 25 H 24 H (9-20) mg/dL Creatinine 0.76 0.80 (0.66-1.25) mg/dL Glucose 125 H 125 H (74-99) mg/dL Calcium 8.6 8.1 L (8.4-10.2) mg/dL Adrenal panel 09/11/19 09/11/19 Range/Units 07:01 11:02 Sodium 132 L 132 L (137-145) mmol/L Potassium 5.6 H 5.1 (3.5-5.1) mmol/L Chloride 105 106 (98-107) mmol/L Carbon Dioxide 16 L 18 L (22-30) mmol/L BUN 25 H 24 H (9-20) mg/dL Creatinine 0.76 0.80 (0.66-1.25) mg/dL Glucose 125 H 125 H (74-99) mg/dL Calcium 8.6 8.1 L (8.4-10.2) mg/dL Total Bilirubin 3.3 H (0.2-1.3) mg/dL AST 237 H (17-59) U/L ALT 354 H (4-49) U/L Alkaline Phosphatase 270 H (38-126) U/L Total Protein 7.7 (6.3-8.2) g/dL Albumin 4.1 (3.5-5.0) g/dL - Imaging US - abdomen: report reviewed, image reviewed Assessment and Plan (1) Gallstone pancreatitis Current Visit: Yes Status: Acute Code(s): K85.10 - BILIARY ACUTE PANCREATITIS WITHOUT NECROSIS OR INFECTION SNOMED Code(s): 20727593 (2) Acute cholecystitis Current Visit: Yes Status: Acute Code(s): K81.0 - ACUTE CHOLECYSTITIS SNOMED Code(s): 77694680 (3) Essential hypertension Current Visit: No Status: Acute Code(s): I10 - ESSENTIAL (PRIMARY) HYPERTENSION SNOMED Code(s): 52807275 (4) Ischemic cardiomyopathy Current Visit: No Status: Acute Code(s): I25.5 - ISCHEMIC CARDIOMYOPATHY SNOMED Code(s): 177112529 Plan: Clinically it sounds as though the patient had developed gallstone pancreatitis from his "gallbladder flush ". The patient appears to be feeling better this afternoon and normally an MRCP could be ordered. He does have a ICD in however. GI has been consult. We'll do serial exams. IV antibiotics. Serial labs. If the LFTs remain elevated he would likely benefit from ERCP. If they normalize fairly quickly he could have a laparoscopic cholecystectomy with intraoperative cholangiogram performed next week. I'll follow with you and further recommendations to follow.
[2019-09-11] MEDS: metroNIDAZOLE-NS PMX 500 MG in SALINE 1 100ML.BAG IVPB SCH ×2 (15:51→22:48)
[2019-09-11] MEDS: SODIUM CHLORIDE 0.9% 1,000 ML IV SCH (15:52)
--- NOTE | 2019-09-11 16:48 | P.CRDCN ---
History of Present Illness Consult date: 09/11/19 Chief complaint: Abdominal discomfort History of present illness: This is a very pleasant 74-year-old gentleman who sees Dr. Vicente in the office on regular basis with a past medical history significant for coronary artery disease and status post stenting of the LAD in 2017, ischemic cardiomyopathy and status post AICD, paroxysmal atrial fibrillation, hypertension, and dyslipidemia, presented to the hospital complaining of abdominal discomfort. The patient stated that abdominal discomfort started about 2-3 months ago. Discomfort was aggravated by food. No symptoms of chest pain or chest discomfort, shortness of breath, dizziness, heart racing, or syncope. The patient was seen and evaluated in the emergency room by general surgeon and he was diagnosed with acute cholecystitis. He possibly need to have an MRCP and possibly need to have cholecystectomy. The patient remains hemodynamically stable. He doesn't look in any overt congestive heart failure at this point. He seems to be very euvolemic on examination. He underwent an ultrasound off the gallbladder and that revealed dimerization of the common bile duct with possible acute cholecystitis. Subsequently he was admitted to the hospital and was started on IV fluid as well as antibiotic. Currently he stated that his abdominal discomfort is much better. On examination he does have right upper quadrant abdominal discomfort. The EKG showed sinus rhythm with RBBB. The patient was on oral anticoagulation with Xarelto but that was stopped because the patient is possibility is going to have surgery this coming Friday. Past Medical History Past Medical History: Hypertension, Myocardial Infarction ([place]) Additional Past Medical History / Comment(s): past broken nose, dara fever as child, arthrits. 07-28-17 stemi Last Myocardial Infarction Date:: 07/28/2017 History of Any Multi-Drug Resistant Organisms: None Reported Past Surgical History: Heart Catheterization With Stent, Tonsillectomy Additional Past Surgical History / Comment(s): ICD Past Anesthesia/Blood Transfusion Reactions: No Reported Reaction Date of Last Stent Placement:: 07/28/2017 Past Psychological History: No Psychological Hx Reported Additional Psychological History / Comment(s): pt is independant. lives with his and 2 pet dogs. 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 Smoking Status: Never smoker Past Alcohol Use History: Occasional Past Drug Use History: None Reported - Past Family History Mother Family Medical History: Diabetes Mellitus Father Family Medical History: AICD/Pacemaker, Cancer Additional Family Medical History / Comment(s): prostate cancer Medications and Allergies Home Medications Medication Instructions Recorded Confirmed Type Borage Oil 1000 Mg 1,000 mg PO DAILY 07/28/17 09/11/19 History Fish Oil/Dha/Epa [Fish Oil 1,200 1 cap PO DAILY 07/28/17 09/11/19 History mg Fish Oil] Magnesium Gluconate [Magonate] 500 mg PO DAILY 07/28/17 09/11/19 History Atorvastatin [Lipitor] 80 mg PO HS #30 tab 07/31/17 09/11/19 Rx Nitroglycerin Sl Tabs [Nitrostat] 0.4 mg SUBLINGUAL Q5M PRN #25 tab 07/31/17 09/11/19 Rx Spironolactone [Aldactone] 50 mg PO DAILY #30 tab 07/31/17 09/11/19 Rx Alpha Green 1,000 mg PO DAILY 12/02/17 09/11/19 History Formula 303 2 tab PO DAILY 12/02/17 09/11/19 History Losartan [Cozaar] 25 mg PO DAILY 12/02/17 09/11/19 History Multivitamin [Men's Multi-Vitamin] 1 each PO DAILY 12/02/17 09/11/19 History Aspirin 81 mg PO MOWEFR 09/11/19 09/11/19 History Calcium Carbonate [Calcium] 600 mg PO DAILY 09/11/19 09/11/19 History Carvedilol [Coreg] 6.25 mg PO BID 09/11/19 09/11/19 History Cyanocobalamin [Vitamin B-12] 500 mcg PO DAILY 09/11/19 09/11/19 History Rivaroxaban [Xarelto] 20 mg PO DAILY 09/11/19 09/11/19 History Sacubitril/Valsartan [Entresto 24 1 tab PO BID 09/11/19 09/11/19 History mg-26 mg Tablet] Allergies Allergy/AdvReac Type Severity Reaction Status Date / Time Sulfa (Sulfonamide Allergy Rash/Hives Verified 09/11/19 06:51 Antibiotics) Physical Exam Vitals: Vital Signs Temp Pulse Pulse Resp BP BP Pulse Ox 09/11/19 14:52 98.1 F 67 17 113/66 95 09/11/19 10:00 97.7 F 63 16 121/74 98 09/11/19 08:59 97.9 F 68 18 119/74 97 09/11/19 06:48 97.4 F L 69 20 109/69 98 Intake and Output 09/11/19 09/11/19 09/11/19 06:59 14:59 22:59 Other: Voiding Method Toilet # Voids 1 Weight 98.883 kg 98.883 kg - Constitutional General appearance: no acute distress - Respiratory Respiratory: bilateral: CTA - Cardiovascular Rhythm: regular Heart sounds: normal: S1, S2 Results 09/11/19 07:01 09/11/19 11:02 Cardiac Enzymes 09/11/19 Range/Units 07:01 AST 237 H (17-59) U/L Coagulation 09/11/19 Range/Units 07:01 PT 12.7 H (9.0-12.0) sec APTT 30.1 H (22.0-30.0) sec CBC 09/11/19 Range/Units 07:01 WBC 7.1 (3.8-10.6) k/uL RBC 4.31 (4.30-5.90) m/uL Hgb 13.6 (13.0-17.5) gm/dL Hct 41.5 (39.0-53.0) % Plt Count 216 (150-450) k/uL Comprehensive Metabolic Panel 09/11/19 09/11/19 Range/Units 07:01 11:02 Sodium 132 L 132 L (137-145) mmol/L Potassium 5.6 H 5.1 (3.5-5.1) mmol/L Chloride 105 106 (98-107) mmol/L Carbon Dioxide 16 L 18 L (22-30) mmol/L BUN 25 H 24 H (9-20) mg/dL Creatinine 0.76 0.80 (0.66-1.25) mg/dL Glucose 125 H 125 H (74-99) mg/dL Calcium 8.6 8.1 L (8.4-10.2) mg/dL AST 237 H (17-59) U/L ALT 354 H (4-49) U/L Alkaline Phosphatase 270 H (38-126) U/L Total Protein 7.7 (6.3-8.2) g/dL Albumin 4.1 (3.5-5.0) g/dL Current Medications Generic Name Dose Route Start Last Admin Trade Name Freq PRN Reason Stop Dose Admin Acetaminophen 650 mg 09/11/19 09:02 Tylenol Tab PO Q6HR PRN Mild Pain or Fever > 100.5 Carvedilol 6.25 mg 09/11/19 17:30 Coreg PO BID-W/MEALS [facility] Heparin Sodium (Porcine) 5,000 unit 09/12/19 09:00 Heparin SQ Q8HR ALVIN Ceftriaxone Sodium 1 gm/ 50 mls @ 100 mls/hr 09/11/19 14:00 09/11/19 13:35 Sodium Chloride IVPB 100 mls/hr Q24H ALVIN Administration Metronidazole 500 mg/ IV 100 mls @ 100 mls/hr 09/11/19 16:00 09/11/19 15:51 Solution IVPB 100 mls/hr Q8HR ALVIN Administration Sodium Chloride 1,000 mls @ 50 mls/hr 09/11/19 15:15 09/11/19 15:52 Saline 0.9% IV 50 mls/hr .Q20H ALVIN Administration Morphine Sulfate 4 mg 09/11/19 09:02 Morphine Sulfate (Inj) IV Q4HR PRN Severe Pain Naloxone HCl 0.2 mg 09/11/19 09:02 Narcan IV Q2M PRN Opioid Reversal Ondansetron HCl 4 mg 09/11/19 09:02 Zofran IVP Q8HR PRN Nausea And Vomiting Pantoprazole Sodium 40 mg 09/12/19 09:00 Protonix IV DAILY [facility] Sodium Bicarbonate 650 mg 09/11/19 10:00 09/11/19 15:51 Sodium Bicarbonate Tab PO 650 mg TID ALVIN Administration Intake and Output 09/11/19 09/11/19 09/11/19 06:59 14:59 22:59 Other: Voiding Method Toilet # Voids 1 Weight 98.883 kg 98.883 kg Patient Weight 09/12/19 06:59 Weight 98.883 kg 09/11/19 07:01 09/11/19 11:02 Assessment and Plan Assessment: Assessment #1 acute cholecystitis #2 coronary artery disease #3 ischemic cardiomyopathy #4 paroxysmal atrial fibrillation Plan #1 the oral anticoagulation was stopped #2 from the cardiovascular standpoint of view, the patient can proceed with the surgery #3 we will continue following up with the patient
[2019-09-11] MEDS: CARVEDILOL 6.25 MG TAB PO SCH (16:51)
[2019-09-11] MEDS: IOPAMIDOL CONTRAST (ORAL USE) VIAL PO PRN ×2 (20:32→21:41)
--- NOTE | 2019-09-11 20:51 | P.CONS ---
History of Present Illness - Reason for Consult Consult date: 09/11/19 Acute cholecystitis, elevated liver enzymes Requesting physician: Breanna Glover - Chief Complaint Abdominal pain - History of Present Illness 74-year-old male with multiple medical comorbidities including coronary artery disease and congestive heart failure who presented to the hospital due to complaints of abdominal pain. The patient reports that he has been having symptoms of abdominal pain occurring over the past 3 months. He attributed this predominantly due to acid reflux for which he took [id number] acid relief. The episodes occur predominantly in the epigastric region. He presented to the hospital after developing pain in the right upper quadrant of his abdomen. He states that this pain has been present more over the past 2 weeks. He describes it as dull initially increasing to sharp in intensity and severe. He denies any history of peptic ulcer disease or prior EGD. He does believe he had a colonoscopy in the past 6-7 years. He denies any new medications. No history of liver disease. He does report multiple family members requiring cholecystectomy for symptomatic cholelithiasis. On presentation to the hospital patient was found to have a hemoglobin of 13.6, WBC 7.1, platelet count 216,000, INR 1.3, total bilirubin 3.3, alkaline phosphatase 270, AST 237 and ALP 354. Ultrasound of the abdomen was significant for multiple liver cysts, cholelithiasis, ductal dilation of the common hepatic and CBD, and suspicion for possible acute cholecystitis. The patient is on anticoagulation therapy which he reports he didn't take yesterday. The anticoagulation therapy was held today. Review of Systems REVIEW OF SYSTEMS: CONSTITUTIONAL: Denies any fevers, chills, weight change or fatigue. CARDIOVASCULAR: Denies any chest pain, palpitations high or low blood pressures RESPIRATORY: Denies any shortness of breath, hemoptysis or cough. GENITOURINARY: No dysuria or hematuria. MUSCULOSKELETAL: No weakness reported. SKIN: Denies any new rashes or lesions, or pallor but does report jaundice. PSYCHIATRIC: Denies any depression or anxiety. NEUROLOGY: Denies headache, denies any new focal deficits. EARS/NOSE/THROAT: No recent hearing change, congestion, nasal discharge or sore throat. EYES: No pain in eyes, discharge or change in vision. GASTROINTESTINAL: As per HPI. Past Medical History Past Medical History: Hypertension, Myocardial Infarction ([place]) Additional Past Medical History / Comment(s): past broken nose, dara fever as child, arthrits. 07-28-17 stemi Last Myocardial Infarction Date:: 07/28/2017 History of Any Multi-Drug Resistant Organisms: None Reported Past Surgical History: Heart Catheterization With Stent, Tonsillectomy Additional Past Surgical History / Comment(s): ICD Past Anesthesia/Blood Transfusion Reactions: No Reported Reaction Date of Last Stent Placement:: 07/28/2017 Past Psychological History: No Psychological Hx Reported Additional Psychological History / Comment(s): pt is independant. lives with his and 2 pet dogs. 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 Smoking Status: Never smoker Past Alcohol Use History: Occasional Past Drug Use History: None Reported - Past Family History Mother Family Medical History: Diabetes Mellitus Father Family Medical History: AICD/Pacemaker, Cancer Additional Family Medical History / Comment(s): prostate cancer Medications and Allergies Home Medications Medication Instructions Recorded Confirmed Type Borage Oil 1000 Mg 1,000 mg PO DAILY 07/28/17 09/11/19 History Fish Oil/Dha/Epa [Fish Oil 1,200 1 cap PO DAILY 07/28/17 09/11/19 History mg Fish Oil] Magnesium Gluconate [Magonate] 500 mg PO DAILY 07/28/17 09/11/19 History Atorvastatin [Lipitor] 80 mg PO HS #30 tab 07/31/17 09/11/19 Rx Nitroglycerin Sl Tabs [Nitrostat] 0.4 mg SUBLINGUAL Q5M PRN #25 tab 07/31/17 09/11/19 Rx Spironolactone [Aldactone] 50 mg PO DAILY #30 tab 07/31/17 09/11/19 Rx Alpha Green 1,000 mg PO DAILY 12/02/17 09/11/19 History Formula 303 2 tab PO DAILY 12/02/17 09/11/19 History Losartan [Cozaar] 25 mg PO DAILY 12/02/17 09/11/19 History Multivitamin [Men's Multi-Vitamin] 1 each PO DAILY 12/02/17 09/11/19 History Aspirin 81 mg PO MOWEFR 09/11/19 09/11/19 History Calcium Carbonate [Calcium] 600 mg PO DAILY 09/11/19 09/11/19 History Carvedilol [Coreg] 6.25 mg PO BID 09/11/19 09/11/19 History Cyanocobalamin [Vitamin B-12] 500 mcg PO DAILY 09/11/19 09/11/19 History Rivaroxaban [Xarelto] 20 mg PO DAILY 09/11/19 09/11/19 History Sacubitril/Valsartan [Entresto 24 1 tab PO BID 09/11/19 09/11/19 History mg-26 mg Tablet] Allergies Allergy/AdvReac Type Severity Reaction Status Date / Time Sulfa (Sulfonamide Allergy Rash/Hives Verified 09/11/19 06:51 Antibiotics) Physical Exam Vitals: Vital Signs Temp Pulse Pulse Resp BP BP Pulse Ox 09/11/19 10:00 97.7 F 63 16 121/74 98 09/11/19 08:59 97.9 F 68 18 119/74 97 09/11/19 06:48 97.4 F L 69 20 109/69 98 Intake and Output 09/10/19 09/11/19 09/11/19 22:59 06:59 14:59 Other: Voiding Method Toilet Weight 98.883 kg 98.883 kg On physical examination, patient appears comfortable in no apparent distress. HEAD: Normocephalic, atraumatic. EYES: Scleral icterus. No conjunctival injection. MOUTH: No lesions, tongue midline. NECK: Trachea midline, no gross abnormalities. CHEST: Clear to auscultation with no wheezing or rhonchi appreciated. HEART: Regular rate and rhythm. ABDOMEN: Soft, moderately tender to palpation worse in the right upper quadrant of his abdomen. Bowel sounds are positive. No organomegaly. No guarding or rigidity. EXTREMITIES: No pedal edema. SKIN: No rashes, no jaundice. NEUROLOGIC: Alert and oriented x3. No focal deficits. Results CBC & Chem 7: 09/11/19 07:01 09/11/19 11:02 Labs: Abnormal Lab Results - Last 24 Hours (Table) 09/11/19 09/11/19 09/11/19 Range/Units 07:01 07:01 08:52 PT 12.7 H (9.0-12.0) sec INR 1.3 H (<1.2) APTT 30.1 H (22.0-30.0) sec Sodium 132 L (137-145) mmol/L Potassium 5.6 H (3.5-5.1) mmol/L Carbon Dioxide 16 L (22-30) mmol/L BUN 25 H (9-20) mg/dL Glucose 125 H (74-99) mg/dL Plasma Lactic Acid Enio (0.7-2.0) mmol/L Calcium (8.4-10.2) mg/dL Total Bilirubin 3.3 H (0.2-1.3) mg/dL AST 237 H (17-59) U/L ALT 354 H (4-49) U/L Alkaline Phosphatase 270 H (38-126) U/L Lipase 641 H (23-300) U/L Urine Protein Trace H (Negative) Urine Blood Trace H (Negative) Urine Bilirubin 1+ H (Negative) Ur Leukocyte Esterase Trace H (Negative) Hyaline Casts 28 H (0-2) /lpf Urine Mucus Few H (None) /hpf 09/11/19 09/11/19 Range/Units 11:02 11:02 PT (9.0-12.0) sec INR (<1.2) APTT (22.0-30.0) sec Sodium 132 L (137-145) mmol/L Potassium (3.5-5.1) mmol/L Carbon Dioxide 18 L (22-30) mmol/L BUN 24 H (9-20) mg/dL Glucose 125 H (74-99) mg/dL Plasma Lactic Acid Enio <0.5 L (0.7-2.0) mmol/L Calcium 8.1 L (8.4-10.2) mg/dL Total Bilirubin (0.2-1.3) mg/dL AST (17-59) U/L ALT (4-49) U/L Alkaline Phosphatase (38-126) U/L Lipase (23-300) U/L Urine Protein (Negative) Urine Blood (Negative) Urine Bilirubin (Negative) Ur Leukocyte Esterase (Negative) Hyaline Casts (0-2) /lpf Urine Mucus (None) /hpf US - abdomen: report reviewed (Ultrasound of the abdomen with findings of liver cysts, diffuse ductal dilation, cholelithiasis, and gallbladder wall thickening.) Assessment and Plan (1) Elevated liver enzymes Narrative/Plan: 74-year-old male with multiple medical comorbidities who presented to the hospital with reports of abdominal pain. The patient had severe right upper quadrant abdominal pain which had been occurring intermittently over the past 2 weeks and became severe in nature prompting him to present to the hospital. Patient denies any prior history of liver disease but does report a significant family history of hepatic cholelithiasis and multiple family members requiring cholecystectomy. He is on anticoagulation therapy which was taken yesterday. He also has a pacemaker prohibitive of MRCP for further evaluation. Ultrasound of the abdomen did show multiple liver cysts with recommendation for further investigation, gallbladder wall thickening suggestive of cholecystitis, and diffuse ductal dilation of the common bile duct and common hepatic duct with gallstones also noted in the gallbladder. Liver enzymes were elevated on presentation with total bilirubin 3.3, alkaline phosphatase 270, AST 237 and ALT 354. Unclear if presentation is secondary to acute cholecystitis, if the patient did have a gallstone which has passed through the bile duct, or if choledocholithiasis is present. Current Visit: Yes Status: Acute Code(s): R74.8 - ABNORMAL LEVELS OF OTHER SERUM ENZYMES SNOMED Code(s): 707880761 (2) Acute cholecystitis Current Visit: Yes Status: Acute Code(s): K81.0 - ACUTE CHOLECYSTITIS SNOMED Code(s): 01369102 Plan: Supportive care Okay for liquid diet Continue to hold anticoagulation therapy Continue to monitor CBC, CMP Hepatic panel ordered Patient's pacemaker is prohibitive of MRCP however liver cysts also require further workup so a computed tomography scan of the abdomen with liver protocol will be ordered both for evaluation of the gallbladder as well as a liver cysts Continue broad-spectrum antibiotic therapy Determination of whether ERCP is needed will be made based on trend and labs, clinical course, and findings from further imaging of the abdomen Appreciate recommendations from surgical service Thank you for allowing us to participate in care of patient we will continue to follow
[2019-09-11] MEDS: ACETAMINOPHEN TAB 325 MG TAB PO PRN (22:34)
--- NOTE | 2019-09-11 23:11 | CT ---
EXAMINATION TYPE: CT abdomen pelvis wo/w con DATE OF EXAM: 09/11/2019 COMPARISON: None HISTORY: Liver cysts, possible cholecystitis. Liver protocol. CT DLP: 2518.4 mGycm Automated exposure control for dose reduction was used. CONTRAST: Performed with IV Contrast, patient injected with 100 mL of Isovue 300. Multiple axial sections were obtained from the diaphragm to the floor the pelvis with oral contrast a nd with and without IV contrast. Lung bases are clear of consolidation. There is no pleural effusion. Heart size is normal. There is 4 cm cyst in the left lobe of the liver. There is 6.9 cm cyst in the inferior right lobe of the liver. There are numerous calcified gallstones. Gallbladder is large and measures 4.[address] There is mild enlargement of the bile ducts. Common bile duct measures 1.6 cm. Stomach is intact . Spleen is intact. There is no pancreatic mass. There is no adrenal mass. Kidneys show satisfactory contrast opacification. There is no hydronephrosi s. There is 1 cm cyst lateral left kidney. Ureters are not dilated. Noncontrast images show no renal calculus. Delayed images show very little contrast in the renal collecting systems. Prostate is enlarged and measures 5 cm. There is no inguinal hernia. There is no free fluid in the pe lvis. Bladder distends smoothly. There is no mesenteric edema. There is no ascites or free air. There is no sign of a bowel obstructio n. There are multiple colonic diverticula without sign of diverticulitis. There are multilevel spondy lotic changes in the lumbar spine. There is no compression fracture. Bony pelvis is intact. IMPRESSION: Numerous calcified gallstones. Dilated gallbladder consistent with cholecystitis. There is evidence f or acute and chronic cholecystitis. There is some dilation of the biliary tree. This could relate to gallbladder dysfunction or obstruction of the distal common bile duct. I do not see a obstructing mas s or stone. Hepatic cysts. ERCP or MRCP exam might be helpful for further evaluation if clinically indicated. There is decreased contrast in the kidneys on the delayed images that could relate to some degree of renal failure.
[2019-09-12 07:38] LABS: ALT 301 U/L (4-49); AST 184 U/L (17-59); African American GFR (CKD) >90 (>60 ml/min/1.73 sqM); Albumin 3.1 g/dL (3.5-5.0); Alkaline Phosphatase 230 U/L (38-126); Anion Gap 5 mmol/L; Bilirubin, Conjugated 0.4 mg/dL (0.0-0.3); Bilirubin, Delta 1.4 mg/dL (0.0-0.2); Bilirubin,Unconjugated 0.8 mg/dL (0.0-1.1); Blood Urea Nitrogen 14 mg/dL (9-20); Calcium 8.3 mg/dL (8.4-10.2); Carbon Dioxide 21 mmol/L (22-30); Chloride 108 mmol/L (98-107); Glucose 100 mg/dL (74-99); Magnesium 2.5 mg/dL (1.6-2.3); Non-African American GFR(CKD) >90 (>60 ml/min/1.73 sqM); Potassium 5.1 mmol/L (3.5-5.1); Sodium 134 mmol/L (137-145); Total Bilirubin 2.6 mg/dL (0.2-1.3)
--- NOTE | 2019-09-12 08:47 | P.PN ---
Subjective Summary: 74-year-old male history of coronary artery disease and systolic heart failure EF 30-35% admitted for acute gallstone cholecystitis, choled ocholithiasis, pancreatitis. His Xarelto on aspirin and been on hold since admission. He is planned for cholecystectomy next week and possibly ERCP prior to that. He cannot have MRCP due to AICD Interval history: Overnight he had episode of pain epigastric to right upper quadrant. Resolved with pain medications. He also had episode of dry heaving and nausea related that resolved with Zofran. This morning he is asymptomatic. He has been receiving IV fluids at 50 mL/h. Appears euvolemic and compensated. He had serum bicarb of 16 on admission no anion gap, normal lactic acid, no ketones in the urine. Probably from cleansing with laxatives that was prescribed prior to coming to the hospital by his PCP. That resolved with IV fluids and oral bicarb. Objective - Vital Signs Vital signs: Vital Signs Temp 97.8 F 09/12/19 07:00 Pulse 58 L 09/12/19 07:00 Resp 17 09/12/19 07:00 BP 103/66 09/12/19 07:00 Pulse Ox 97 09/12/19 07:00 Intake & Output 09/11/19 09/12/19 09/12/19 18:59 06:59 18:59 Intake Total 630 Balance 630 Weight 98.883 kg Intake: Intake, IV Titration 150 Amount Sodium Chloride 0.9% 1, 150 000 ml @ 50 mls/hr IV . Q20H [facility] Rx#:[id number] Oral 480 Other: Voiding Method Toilet # Voids 1 1 - Exam Vital Signs: I have reviewed the vital signs. GENERAL: Well-nourished, Well-developed , no apparent distress, cooperative Eyes: PERRL, extraoculry movements intact, clear conjunctiva Head: : Atraumatic external nose and ears, oropharyngeal mucosa is moist without lesions or exudates Neck: Symmetric, trachea midline, No thyromegaly, no masses or neck vain pulsation, no neck rigidity CVS: +S1/S2, No murmurs or gallops. Peripheral pulses 2+ and equal in all extremities. RESP: Unlabored respiratory effort. Clear to auscultation bilaterally. Abdomen: Bowel sounds present in all 4 quadrants, Soft to palpation, Nontender/Nondistended, No hepatosplenomegaly, no hernias or masses, no CVA tnderness Musculoskeletal: Extremities w/o deformity, No cyanosis or clubbing, no joint swelling Skin: Warm, Dry. No rashes or lesions - Labs CBC & Chem 7: 09/11/19 07:01 09/12/19 06:33 Labs: Abnormal Lab Results - Last 24 Hours (Table) 09/11/19 09/11/19 09/11/19 Range/Units 08:52 11:02 11:02 Sodium 132 L (137-145) mmol/L Chloride (98-107) mmol/L Carbon Dioxide 18 L (22-30) mmol/L BUN 24 H (9-20) mg/dL Glucose 125 H (74-99) mg/dL Plasma Lactic Acid Enio <0.5 L (0.7-2.0) mmol/L Calcium 8.1 L (8.4-10.2) mg/dL Magnesium (1.6-2.3) mg/dL Total Bilirubin (0.2-1.3) mg/dL Conjugated Bilirubin (0.0-0.3) mg/dL Delta Bilirubin (0.0-0.2) mg/dL AST (17-59) U/L ALT (4-49) U/L Alkaline Phosphatase (38-126) U/L Total Protein (6.3-8.2) g/dL Albumin (3.5-5.0) g/dL Urine Protein Trace H (Negative) Urine Blood Trace H (Negative) Urine Bilirubin 1+ H (Negative) Ur Leukocyte Esterase Trace H (Negative) Hyaline Casts 28 H (0-2) /lpf Urine Mucus Few H (None) /hpf 09/12/19 Range/Units 06:33 Sodium 134 L (137-145) mmol/L Chloride 108 H (98-107) mmol/L Carbon Dioxide 21 L (22-30) mmol/L BUN (9-20) mg/dL Glucose 100 H (74-99) mg/dL Plasma Lactic Acid Enio (0.7-2.0) mmol/L Calcium 8.3 L (8.4-10.2) mg/dL Magnesium 2.5 H (1.6-2.3) mg/dL Total Bilirubin 2.6 H (0.2-1.3) mg/dL Conjugated Bilirubin 0.4 H (0.0-0.3) mg/dL Delta Bilirubin 1.4 H (0.0-0.2) mg/dL AST 184 H (17-59) U/L ALT 301 H (4-49) U/L Alkaline Phosphatase 230 H (38-126) U/L Total Protein 6.0 L (6.3-8.2) g/dL Albumin 3.1 L (3.5-5.0) g/dL Urine Protein (Negative) Urine Blood (Negative) Urine Bilirubin (Negative) Ur Leukocyte Esterase (Negative) Hyaline Casts (0-2) /lpf Urine Mucus (None) /hpf Microbiology - Last 24 Hours (Table) 09/11/19 08:56 Urine Culture - Preliminary Urine,Voided Assessment and Plan Assessment: 1. Acute cholecystitis with choledocholithiasis with probable acute or resolving pancreatitis Patient is nontoxic nonseptic appearing in no active symptoms right now No clinical signs suggestive of cholangitis He has extensive family history of cholelithiasis. No history of blood disorders or need for transfusions in the family per patient Elevated liver enzymes, elevation is mild and probably related to choledocholithiasis and acute cystitis also with use of statin. He denies any excessive Tylenol or drinking. Counseled about [id number] medications use as he has excessive list of those medications Continue nothing by mouth, IV fluids and antibiotics Gastroenterology and general surgery consultation He cannot have MRCP right now due to ICD in place. Patient is not sure if it's MRI compatible. Hold Xarelto and aspirin and atorvastatin due to elevated liver enzymes For medicine standpoint patient is at moderate risk due to history of coronary artery disease and CHF, but he has been compensated without active cardiac symptoms and he is at acceptable risk to proceed with cholecystectomy and/or ERCP. If surgical intervention planned he should be off of Xarelto at least 2-3 days. If urgent surgery needed minimal 2 days would be advisable. Last dose of Xarelto was yesterday morning, 24 hours ago. 2. Chronic systolic CHF Patient is currently compensated euvolemic and asymptomatic We will hold his spironolactone and Entresto due to mild hyperkalemia and expectant surgery to avoid any precipitation of hypotension Continue Coreg 3. Coronary artery disease With PCI done 2 years ago and stenting 4 Patient appears clinically compensated and stable without any active symptoms Hold aspirin and statin Continue Coreg Cardiology consultation for perioperative evaluation of the patient 4. Hyperkalemia Mild Likely related to medications and acidosis Hold spironolactone and Entresto Resolved 5. non ion gap metabolic acidosis Likely related to cleansing with laxatives Improved Decrease oral bicarbonate and probably discontinued tomorrow
[2019-09-12] MEDS: metroNIDAZOLE-NS PMX 500 MG in SALINE 1 100ML.BAG IVPB SCH ×3 (08:55→23:23)
[2019-09-12] MEDS: PANTOPRAZOLE 40 MG/10 ML VIAL IV SCH (08:57)
[2019-09-12] MEDS: SODIUM BICARBONATE TAB 650 MG TAB PO SCH ×2 (09:02→21:41)
[2019-09-12] MEDS: ACETAMINOPHEN TAB 325 MG TAB PO PRN ×2 (09:18→23:23)
[2019-09-12] MEDS: CARVEDILOL 6.25 MG TAB PO SCH ×2 (09:18→16:53)
[2019-09-12] MEDS: HEPARIN SODIUM,PORCINE 5,000 UNIT/ML 1 ML VIAL SQ SCH ×3 (09:19→23:23)
--- NOTE | 2019-09-12 12:35 | P.PN ---
Subjective Progress Note Date: 09/12/19 Principal diagnosis: Gallstone pancreatitis The patient is seen on rounds. He is very willing fairly good. No nausea or vomiting. Tolerating clear liquids Objective - Vital Signs Vital signs: Vital Signs Temp 97.8 F 09/12/19 07:00 Pulse 58 L 09/12/19 08:00 Resp 17 09/12/19 08:00 BP 103/66 09/12/19 07:00 Pulse Ox 97 09/12/19 07:00 Intake & Output 09/11/19 09/12/19 09/12/19 18:59 06:59 18:59 Intake Total 630 Balance 630 Weight 98.883 kg Intake: Intake, IV Titration 150 Amount Sodium Chloride 0.9% 1, 150 000 ml @ 50 mls/hr IV . Q20H [facility] Rx#:[id number] Oral 480 Other: Voiding Method Toilet Toilet # Voids 1 1 - Gastrointestinal General gastrointestinal: Present: normal bowel sounds, soft, tenderness (Mild right upper quadrant) - Labs CBC & Chem 7: 09/11/19 07:01 09/12/19 06:33 Labs: Abnormal Lab Results - Last 24 Hours (Table) 09/12/19 Range/Units 06:33 Sodium 134 L (137-145) mmol/L Chloride 108 H (98-107) mmol/L Carbon Dioxide 21 L (22-30) mmol/L Glucose 100 H (74-99) mg/dL Calcium 8.3 L (8.4-10.2) mg/dL Magnesium 2.5 H (1.6-2.3) mg/dL Total Bilirubin 2.6 H (0.2-1.3) mg/dL Conjugated Bilirubin 0.4 H (0.0-0.3) mg/dL Delta Bilirubin 1.4 H (0.0-0.2) mg/dL AST 184 H (17-59) U/L ALT 301 H (4-49) U/L Alkaline Phosphatase 230 H (38-126) U/L Total Protein 6.0 L (6.3-8.2) g/dL Albumin 3.1 L (3.5-5.0) g/dL Microbiology - Last 24 Hours (Table) 09/11/19 08:56 Urine Culture - Preliminary Urine,Voided Assessment and Plan (1) Gallstone pancreatitis Current Visit: Yes Status: Acute Code(s): K85.10 - BILIARY ACUTE PANCREATITIS WITHOUT NECROSIS OR INFECTION SNOMED Code(s): 81513298 (2) Acute cholecystitis Current Visit: Yes Status: Acute Code(s): K81.0 - ACUTE CHOLECYSTITIS SNOMED Code(s): 45337087 (3) Essential hypertension Current Visit: No Status: Acute Code(s): I10 - ESSENTIAL (PRIMARY) HYPERTENSION SNOMED Code(s): 74722357 (4) Ischemic cardiomyopathy Current Visit: No Status: Acute Code(s): I25.5 - ISCHEMIC CARDIOMYOPATHY SNOMED Code(s): 510476588 Plan: Report of the computed tomography scan was reviewed. He continues to have common bile duct/intrahepatic ductal dilation. Liver function tests and bilirubin are still somewhat elevated. He will be seen by GI. Likely needs an ERCP. Plan will then be for laparoscopic cholecystectomy the following day. This was discussed with the patient.
[2019-09-12] MEDS: SODIUM CHLORIDE 0.9% 1,000 ML IV SCH (14:29)
--- NOTE | 2019-09-12 14:29 | PN ---
PROGRESS NOTE DATE OF SERVICE: September 12, 2019. BRIEF HISTORY: This is a pleasant 74-year-old gentleman who sees Dr. Vicente in the office as an outpatient with history of coronary artery disease and prior stenting of the LAD in 2017, ischemic cardiomyopathy and status post AICD, paroxysmal atrial fibrillation, as well as multiple comorbid conditions, who presented to the hospital with abdominal discomfort and was diagnosed with acute cholecystitis. The patient was seen today, September 12, 2019. He stated that the abdominal discomfort has improved. He denies any chest pain or chest discomfort. Surgery is on the case and the plan is to proceed with MRCP tomorrow and subsequently cholecystectomy. Anticoagulation is on hold at this point. We will find out if his AICD is compatible with MRI. Otherwise, from the cardiovascular standpoint of view, the patient can proceed with the surgery. LONA / VALORIE: [id number] /
--- NOTE | 2019-09-12 19:19 | P.PN ---
Subjective Progress Note Date: 09/12/19 Principal diagnosis: Abdominal pain, acute cholecystitis, elevated bilirubin, dilated CBD, cholelithiasis Patient is seen reporting abdominal pain is overall improved. No nausea or vomiting. He has tolerated a liquid diet. Objective - Vital Signs Vital signs: Vital Signs Temp 97.8 F 09/12/19 07:00 Pulse 58 L 09/12/19 07:00 Resp 17 09/12/19 07:00 BP 103/66 09/12/19 07:00 Pulse Ox 97 09/12/19 07:00 Intake & Output 09/11/19 09/12/19 09/12/19 18:59 06:59 18:59 Intake Total 630 Balance 630 Weight 98.883 kg Intake: Intake, IV Titration 150 Amount Sodium Chloride 0.9% 1, 150 000 ml @ 50 mls/hr IV . Q20H [facility] Rx#:[id number] Oral 480 Other: Voiding Method Toilet # Voids 1 1 - Exam On physical examination, patient appears comfortable in no apparent distress. HEAD: Normocephalic, atraumatic. EYES: No scleral icterus. No conjunctival injection. MOUTH: No lesions, tongue midline. NECK: Trachea midline, no gross abnormalities. ABDOMEN: Soft, mildly tender to palpation. Bowel sounds are positive. No organomegaly. No guarding or rigidity. EXTREMITIES: No pedal edema. SKIN: No rashes, no jaundice. NEUROLOGIC: Alert and oriented x3. No focal deficits. - Labs CBC & Chem 7: 09/11/19 07:01 09/12/19 06:33 Labs: Abnormal Lab Results - Last 24 Hours (Table) 09/11/19 09/12/19 Range/Units 11:02 06:33 Sodium 132 L 134 L (137-145) mmol/L Chloride 108 H (98-107) mmol/L Carbon Dioxide 18 L 21 L (22-30) mmol/L BUN 24 H (9-20) mg/dL Glucose 125 H 100 H (74-99) mg/dL Calcium 8.1 L 8.3 L (8.4-10.2) mg/dL Magnesium 2.5 H (1.6-2.3) mg/dL Total Bilirubin 2.6 H (0.2-1.3) mg/dL Conjugated Bilirubin 0.4 H (0.0-0.3) mg/dL Delta Bilirubin 1.4 H (0.0-0.2) mg/dL AST 184 H (17-59) U/L ALT 301 H (4-49) U/L Alkaline Phosphatase 230 H (38-126) U/L Total Protein 6.0 L (6.3-8.2) g/dL Albumin 3.1 L (3.5-5.0) g/dL Microbiology - Last 24 Hours (Table) 09/11/19 08:56 Urine Culture - Preliminary Urine,Voided Assessment and Plan (1) Elevated liver enzymes Narrative/Plan: 74-year-old male with multiple medical comorbidities who presented to the hospital with reports of abdominal pain. The patient had severe right upper quadrant abdominal pain which had been occurring intermittently over the past 2 weeks and became severe in nature prompting him to present to the hospital. Patient denies any prior history of liver disease but does report a significant family history of hepatic cholelithiasis and multiple family members requiring cholecystectomy. He is on anticoagulation therapy which was taken yesterday. He also has a pacemaker prohibitive of MRCP for further evaluation. Ultrasound of the abdomen did show multiple liver cysts with recommendation for further investigation, gallbladder wall thickening suggestive of cholecystitis, and diffuse ductal dilation of the common bile duct and common hepatic duct with gallstones also noted in the gallbladder. Liver enzymes were elevated on presentation with total bilirubin 3.3, alkaline phosphatase 270, AST 237 and ALT 354. Liver enzymes have remained elevated with total bilirubin today with persistent elevation in AST and ALT. Computed tomography scan of the abdomen showed dilated common bile duct with findings suggestive of acute cholecystitis and cholelithiasis. Current Visit: Yes Status: Acute Code(s): R74.8 - ABNORMAL LEVELS OF OTHER SERUM ENZYMES SNOMED Code(s): 424970220 (2) Acute cholecystitis Current Visit: Yes Status: Acute Code(s): K81.0 - ACUTE CHOLECYSTITIS SNOMED Code(s): 74512567 Plan: Supportive care Okay for liquid diet, nothing by mouth after midnight Continue to hold anticoagulation therapy Continue to monitor CBC, CMP Computed tomography scan of the abdomen reviewed Continue broad-spectrum antibiotic therapy Plan is for tentative ERCP tomorrow, with the benefits and risks of the procedure including but not limited to worsening pancreatitis, bleed, perforation, infection discussed with the patient and his family members at length with all questions answered to their satisfaction Indocin and Levaquin order preprocedure Appreciate recommendations from surgical service Thank you for allowing us to participate in care of patient we will continue to follow
[2019-09-13] MEDS: HEPARIN SODIUM,PORCINE 5,000 UNIT/ML 1 ML VIAL SQ SCH ×3 (07:32→23:11)
[2019-09-13] MEDS: metroNIDAZOLE-NS PMX 500 MG in SALINE 1 100ML.BAG IVPB SCH ×3 (07:32→23:12)
[2019-09-13] MEDS: PANTOPRAZOLE 40 MG/10 ML VIAL IV SCH (07:33)
[2019-09-13] MEDS: SODIUM BICARBONATE TAB 650 MG TAB PO SCH ×2 (07:34→20:07)
[2019-09-13] MEDS: CARVEDILOL 6.25 MG TAB PO SCH ×2 (07:35→16:59)
[2019-09-13] MEDS: SODIUM CHLORIDE 0.9% 1,000 ML IV SCH ×2 (07:35→23:14)
[2019-09-13 09:42] LABS: ALT 279 U/L (4-49); AST 172 U/L (17-59); African American GFR (CKD) >90 (>60 ml/min/1.73 sqM); Alkaline Phosphatase 224 U/L (38-126); Anion Gap 5 mmol/L; Bilirubin, Conjugated 0.3 mg/dL (0.0-0.3); Bilirubin, Delta 1.4 mg/dL (0.0-0.2); Bilirubin,Unconjugated 0.7 mg/dL (0.0-1.1); Blood Urea Nitrogen 10 mg/dL (9-20); Calcium 8.4 mg/dL (8.4-10.2); Carbon Dioxide 22 mmol/L (22-30); Chloride 109 mmol/L (98-107); Glucose 90 mg/dL (74-99); Magnesium 2.1 mg/dL (1.6-2.3); Non-African American GFR(CKD) >90 (>60 ml/min/1.73 sqM); Potassium 4.7 mmol/L (3.5-5.1); Sodium 136 mmol/L (137-145); Total Bilirubin 2.4 mg/dL (0.2-1.3); Total Protein 5.7 g/dL (6.3-8.2)
[2019-09-13 09:54] LABS: INR 1.2 (<1.2); Prothrombin Time 12.3 sec (9.0-12.0)
--- NOTE | 2019-09-13 10:02 | P.PN ---
Subjective Progress Note Date: 09/13/19 Principal diagnosis: abdominal pain Patient is a 74-year-old male with past medical history of coronary artery disease, systolic congestive heart failure with ejection fraction 30-35% status post AICD, and hypertension who presented to the hospital with complaints of abdominal pain. In the ER he underwent an extensive evaluation. He underwent a gallbladder ultrasound which showed distended gallbladder and positive Sheikh sign. He underwent a chest x-ray which showed no acute process. Initial laboratory analysis showed an elevated potassium at 5.6, carbon dioxide 16, BUN 25, bilirubin 3.3, AST 237, ALT 354, alkaline phosphatase of 270. He also had a mildly elevated lipase at 641. He was admitted for acute cholecystitis and GI and general surgery were consulted. He was started on Rocephin and Flagyl. He was amenable to have an MRCP secondary to his AICD. He underwent a CT abdomen and pelvis which showed numerous calcified gallstones, dilated gallbladder, and some dilation of the biliary tree. He was seen by cardiology and cleared for surgery. Has also had been held since admission. Patient seen and examined at bedside. He is having some achy right upper quadrant pain today, he is feeling hungry, no nausea, no chest pain, no shortness of breath. Objective - Vital Signs Vital signs: Vital Signs Temp 97.6 F 09/13/19 07:00 Pulse 59 L 09/13/19 07:00 Resp 16 09/13/19 07:15 BP 112/73 09/13/19 07:00 Pulse Ox 98 09/13/19 07:00 Intake & Output 09/12/19 09/13/19 09/13/19 18:59 06:59 18:59 Other: Voiding Method Toilet Toilet # Voids 1 2 - Exam General: non toxic, no distress, appears at stated age Derm: warm, dry Head: atraumatic, normocephalic, symmetric Eyes: EOMI, no lid lag, anicteric sclera Mouth: no lip lesion, mucus membranes dry Cardiovascular: S1S2 reg, no murmur, positive posterior tibial pulse bilateral, Lungs: CTA bilateral, no rhonchi, no rales , no accessory muscle use Abdominal: soft, nontender to palpation, no guarding, no appreciable organomegaly Ext: no gross muscle atrophy, no edema, no contractures Neuro: CN II-XI grossly intact, no focal neuro deficits Psych: Alert, oriented, appropriate affect - Labs CBC & Chem 7: 09/11/19 07:01 09/13/19 05:49 Labs: Abnormal Lab Results - Last 24 Hours (Table) 09/13/19 Range/Units 05:49 Sodium 136 L (137-145) mmol/L Chloride 109 H (98-107) mmol/L Total Bilirubin 2.4 H (0.2-1.3) mg/dL Delta Bilirubin 1.4 H (0.0-0.2) mg/dL AST 172 H (17-59) U/L ALT 279 H (4-49) U/L Alkaline Phosphatase 224 H (38-126) U/L Total Protein 5.7 L (6.3-8.2) g/dL Albumin 3.0 L (3.5-5.0) g/dL Microbiology - Last 24 Hours (Table) 09/11/19 08:56 Urine Culture - Final Urine,Voided Assessment and Plan Assessment: Acute cholecystitis with possible choledocholithiasis -Plan is for ERCP today and likely a laparoscopic tomorrow -Currently nothing by mouth -Pain control -Antiemetics -Repeat liver function testing in the morning -Due to his nothing by mouth status is Aldactone has been held. Paroxysmal atrial fibrillation -Xarelto currently on hold - follow heart rate - coreg Ischemic cardiomyopathy with ejection fraction 30-35%, currently compensated - coreg - eneresto/cozaar on hold likely resume in AM. Pharmacy to confirm that patient is taking both - aldactone on hold as NPO Transaminitis due to choleystitis - hold statin and resume in AM - follow CMP Non-anion gap metabolic acidosis, undetermined cause -On oral sodium bicarb tablets -Follow carbon dioxide in a.m. Hyperkalemia, resolved Dehydration, resolved DVT prophylaxis: SCDS Discussed with: Patient, nursing Anticipated discharge: 2-[address]: home A total of 35 minutes was spent on the care of this complex patient more than 50% of the time was spent in counseling and care coordination.
[2019-09-13] MEDS ORDERED: LEVOFLOXACIN 500MG-D5W PMX 500 MG in DEXTROSE/WATER 1 100ML.BAG IVPB ONE (12:00)
[2019-09-13] MEDS ORDERED: INDOMETHACIN 50MG SUPPOSITORY RECTAL ONE (12:00)
[2019-09-13] MEDS ORDERED: IV FLUID CONTINUATION 1,000 ML IV ONE (12:06)
--- NOTE | 2019-09-13 12:27 | P.PN ---
Progress Note - Text Progress Note Date: 09/13/19 The patient is going for ERCP today. Tentative plan is for a laparoscopic cholecystectomy tomorrow.
[2019-09-13] MEDS ORDERED: ONDANSETRON 4 MG/2 ML VIAL ONE (12:45)
[2019-09-13] MEDS ORDERED: fentaNYL (PF) 50 MCG/ML 2 ML AMP ONE (12:45)
[2019-09-13] MEDS ORDERED: SUCCINYLCHOLINE CHLORIDE 100 MG/5 ML SYR IV ONE (12:45)
[2019-09-13] MEDS ORDERED: MIDAZOLAM 2 MG/2 ML VIAL ONE (12:45)
[2019-09-13] MEDS ORDERED: NEOSTIGMINE 1 MG/ML 10 ML VIAL ONE (12:45)
[2019-09-13] MEDS ORDERED: LIDOCAINE 1% INJ 10MG/ML (20 ML MDV) ONE (12:45)
[2019-09-13] MEDS ORDERED: ROCURONIUM BROMIDE 10 MG/ML 10 ML VIAL IV ONE (12:45)
[2019-09-13] MEDS ORDERED: ETOMIDATE 2 MG/ML 10 ML VIAL ONE (12:45)
[2019-09-13] MEDS ORDERED: GLYCOPYRROLATE 0.2 MG/ML 2 ML VIAL ONE (12:45)
[2019-09-13 13:18] LABS: Hepatitis A Antibody IgM Non-Reactive (Non-Reactive); Hepatitis B Core IgM Non-Reactive (Non-Reactive); Hepatitis B Surface Antigen Non-Reactive (Non-Reactive); Hepatitis C IgG Antibody Non-Reactive (Non-Reactive)
--- NOTE | 2019-09-13 14:30 | P.PCN ---
Date of Procedure: 09/13/19 Description of Procedure: Brief history: 74-year-old male with multiple medical comorbidities who presented to the hospital with reports of abdominal pain. The patient had severe right upper quadrant abdominal pain which had been occurring intermittently over the past 2 weeks and became severe in nature prompting him to present to the hospital. Patient denies any prior history of liver disease but does report a significant family history of hepatic cholelithiasis and multiple family members requiring cholecystectomy. He is on anticoagulation therapy which was taken yesterday. He also has a pacemaker prohibitive of MRCP for further evaluation. Ultrasound of the abdomen did show multiple liver cysts with recommendation for further investigation, gallbladder wall thickening suggestive of cholecystitis, and diffuse ductal dilation of the common bile duct and common hepatic duct with gallstones also noted in the gallbladder. Liver enzymes were elevated on presentation with total bilirubin 3.3, alkaline phosphatase 270, AST 237 and ALT 354. Liver enzymes have remained elevated with total bilirubin great then 2 today with persistent elevation in AST and ALT. Computed tomography scan of the abdomen showed dilated common bile duct with findings suggestive of acute cholecystitis and cholelithiasis. Procedure performed: ERCP failed/aborted Preoperative diagnoses: Elevated bilirubin, abdominal pain, dilated CBD, suspected choledocholithiasis IV sedation per anesthesia: Estimated blood loss: Minimal. Procedure: After informed consent was obtained from the patient and after the risks benefits and complications including bleeding perforation and pancreatitis explained in detail the patient was brought into the endoscopy unit. The patient was placed in prone position and IV conscious sedation was administered by anesthesia under continuous monitoring. The Olympus side-viewing duodenoscope was then inserted into the mouth and esophagus intubated without any difficulty. The scope was gradually advanced into the stomach. Multiple attempts were made to advance the duodenal scope through the stomach and into the duodenum. However the patient had an abnormal anatomy with a J-shaped stomach. On 3 occasions the duodenum was successfully intubated, however the scope immediately fell out of the duodenum back into the stomach. Attempts were made both by myself as well as my partner Dr. Moise, however these were unsuccessful due to the anatomy of the stomach. At this time the procedure was aborted. The patient tolerated the procedure well. Impression: Failed/aborted ERCP secondary to J-shaped stomach and difficulty intubating the duodenum. Recommendations: The findings of this examination were discussed with the patient as well as his . Okay for clear liquid diet. Case discussed with the surgeon at length at this time plan is for laparoscopic cholecystectomy tomorrow with plans for intraoperative cholangiogram. If patient continues to have elevated bilirubin, and/or cholangiogram confirms choledocholithiasis patient will be referred to a tertiary center for ERCP with advanced endoscopy. Okay for liquids today. Nothing by mouth after midnight.
--- NOTE | 2019-09-13 14:31 | P.PN ---
Progress Note - Text Progress Note Date: 09/13/19 The ERCP was not successful due to anatomy. Discussion held with Dr Proctor and the patients . Will proceed with laparoscopic cholecystectomy tomorrow with an intraoperative cholangiogram. If there is a retained stone that I am unable to remove, he will be sent to a tertiary center for postop ERCP.
--- NOTE | 2019-09-13 14:37 | FL ---
Fluoroscopy HISTORY: ERCP, abnormal CT with dilated bile duct, cholecystitis 8 seconds fluoroscopy time supplied to the referring clinician. 1 intraoperative C-arm images do cument the procedure. See dictated report from gastroenterology.
[2019-09-13] MEDS: ACETAMINOPHEN TAB 325 MG TAB PO PRN (23:16)
[2019-09-14 07:45] LABS: ALT 246 U/L (4-49); AST 158 U/L (17-59); African American GFR (CKD) >90 (>60 ml/min/1.73 sqM); Albumin 2.9 g/dL (3.5-5.0); Alkaline Phosphatase 204 U/L (38-126); Anion Gap 5 mmol/L; Blood Urea Nitrogen 9 mg/dL (9-20); Calcium 8.5 mg/dL (8.4-10.2); Carbon Dioxide 25 mmol/L (22-30); Chloride 107 mmol/L (98-107); Glucose 103 mg/dL (74-99); Magnesium 1.8 mg/dL (1.6-2.3); Non-African American GFR(CKD) >90 (>60 ml/min/1.73 sqM); Potassium 4.5 mmol/L (3.5-5.1); Sodium 137 mmol/L (137-145); Total Bilirubin 2.9 mg/dL (0.2-1.3); Total Protein 5.7 g/dL (6.3-8.2)
[2019-09-14] MEDS: PANTOPRAZOLE 40 MG/10 ML VIAL IV SCH (08:07)
[2019-09-14] MEDS: metroNIDAZOLE-NS PMX 500 MG in SALINE 1 100ML.BAG IVPB SCH ×2 (08:07→17:43)
[2019-09-14] MEDS: SODIUM BICARBONATE TAB 650 MG TAB PO SCH (08:16)
[2019-09-14] MEDS: HEPARIN SODIUM,PORCINE 5,000 UNIT/ML 1 ML VIAL SQ SCH ×2 (08:55→17:43)
[2019-09-14] MEDS: CARVEDILOL 6.25 MG TAB PO SCH ×2 (09:01→19:07)
[2019-09-14] MEDS ORDERED: IV FLUID CONTINUATION 1,000 ML IV ONE (12:58)
[2019-09-14] MEDS ORDERED: DEXAMETHASONE SOD PHOSPHATE 10 MG/ML 1 ML VIAL IV ONE (13:06)
[2019-09-14] MEDS ORDERED: ONDANSETRON 4 MG/2 ML VIAL IVP ONE (13:06)
[2019-09-14] MEDS ORDERED: LIDOCAINE 1% INJ 10MG/ML (20 ML MDV) ONE (13:16)
[2019-09-14] MEDS ORDERED: fentaNYL (PF) 50 MCG/ML 2 ML AMP ONE (13:16)
[2019-09-14] MEDS ORDERED: ETOMIDATE 2 MG/ML 10 ML VIAL ONE (13:16)
[2019-09-14] MEDS ORDERED: ROCURONIUM BROMIDE 10 MG/ML 10 ML VIAL IV ONE (13:16)
[2019-09-14] MEDS ORDERED: NEOSTIGMINE 1 MG/ML 10 ML VIAL ONE (13:16)
[2019-09-14] MEDS ORDERED: PROPOFOL 10 MG/ML 20 ML VIAL IV ONE (13:16)
[2019-09-14] MEDS ORDERED: GLYCOPYRROLATE 0.2 MG/ML 2 ML VIAL ONE (13:16)
[2019-09-14] MEDS ORDERED: SUCCINYLCHOLINE CHLORIDE 100 MG/5 ML SYR IV ONE (13:16)
[2019-09-14] MEDS ORDERED: MIDAZOLAM 2 MG/2 ML VIAL ONE (13:16)
--- NOTE | 2019-09-14 13:28 | P.PN ---
Progress Note - Text Progress Note Date: 09/14/19 The patient will go for laparoscopic cholecystectomy with intraoperative cholangiogram today. The procedure, risks, complications were discussed. Questions were encouraged and answered.
[2019-09-14] MEDS ORDERED: LIDOCAINE 1%-EPI 1:100,000 20 ML VIAL SQ ONE (13:40)
[2019-09-14] MEDS ORDERED: BUPIVACAINE (PF) 0.25% 30 ML VIAL SQ ONE (13:40)
[2019-09-14] MEDS ORDERED: LACTATED RINGERS 1,000 ML IV ONE (14:38)
--- NOTE | 2019-09-14 14:44 | FL ---
EXAMINATION TYPE: FL cholangiogram operative DATE OF EXAM: 09/14/2019 COMPARISON: CT scan 09/11/2019 HISTORY: Cholelithiasis Fluoroscopy support supplied to the referring clinician. See dictated report from surgery, 16 second s fluoroscopy time, intraoperative image documents the procedure
--- NOTE | 2019-09-14 14:55 | P.OP ---
Date of Procedure: 09/14/19 Preoperative Diagnosis: Cholelithiasis, cholecystitis, rule out choledocholithiasis Postoperative Diagnosis: Cholelithiasis, cholecystitis, choledocholithiasis. Procedure(s) Performed: Laparoscopic cholecystectomy with intraoperative cholangiogram Anesthesia: FREDY Surgeon: Noris Galindo Estimated Blood Loss (ml): 25 Pathology: other (Gallbladder) Condition: stable Disposition: PACU Indications for Procedure: The patient presented with symptomatic cholelithiasis and elevated liver function tests. Attempted ERCP yesterday was unsuccessful. Description of Procedure: The patient's taken the operative suite where he is prepped and draped in the usual sterile manner under a general endotracheal anesthetic. A supraumbilical incision was made and a Veress needle was placed into the abdominal cavity. Pneumoperitoneum was established with CO2 gas. Sites are chosen for accessory trochars needs are placed through small skin incisions. Some omentum was adherent to the gallbladder and it was bluntly or sharply taken down. The gallbladder had to be decompressed of about 100 mL's of dark green bile. The gallbladder was acutely inflamed and edematous. It could then be grasped and retracted superiorly. Ayesha's pouch was able to be identified, it was grasped and retracted laterally. The lymph node was identified. The cystic duct is dissected free and it's clipped on the lateral aspect. A small enterotomy was then made in the cystic duct and a cholangiogram catheter was placed. An intraoperative cholangiogram was then performed. The dye filled up the hepatic radicals in the common bile duct but there was no flow into the duodenum. There is enough pressure that some of the dye leaked back around the catheter in the cystic duct but there is obvious obstruction. The cholangiogram catheter was removed and the cystic duct was doubly clipped on the medial aspect. It was then transected. The stump was then secured with 0 PDS Endoloop. The cystic artery was dissected free and triply clipped and cut. The gallbladder is then dissected free from the liver bed. Small bleeding points are controlled with electrocautery. The gallbladder is placed into a specimen retrieval bag. The subhepatic space and paracolic gutter were then irrigated and aspirated. The liver bed appeared to be hemostatic. Due to the fact he'll need to be transferred for advance endoscopy to her ERCP, a drain was placed into the subhepatic space in case there is any bile leak created. The trochars were removed. The specimen retrieval bag was placed on traction. The fascia at the umbilicus had to be extended slightly and the gallbladder was opened and multiple stones were removed. The specimen retrieval bag was removed. The fascia at the umbilicus was closed with 0 Vicryl. The skin incisions were closed with 4-0 Vicryl in a subcuticular manner. Steri-Strips and dressings were applied. He tolerated the procedure without difficulty and was taken recovery room in satisfactory condition. Cording to or personnel, WERE correct.
--- NOTE | 2019-09-14 14:55 | P.PN ---
Progress Note - Text Progress Note Date: 09/14/19 I discussed with the case with Dr. Mcgregor via phone. GI we'll arrange to have the patient transferred to a tertiary center for ERCP.
[2019-09-14] MEDS ORDERED: HYDROcodone/APAP 5-325MG 1 EACH TAB PO PRN ×2 (14:56)
[2019-09-14 15:05] VITALS: RESP 16
--- NOTE | 2019-09-14 17:20 | PN ---
PROGRESS NOTE DATE OF DICTATION: 09/14/2019 This patient is a 74-year-old pleasant white male who was admitted to the hospital with acute onset of abdominal pain and elevated LFTs and mild jaundice. He had an ultrasound as well as CT scan that showed multiple gallstones and a dilated CBD, and possibility of CBD stones could not be excluded. He underwent an ERCP yesterday by Dr. Proctor, but it was unsuccessful, as the scope could not be advanced through the pylorus because of anatomical variation. Since his serum transaminases are improving and the bilirubin has improved to 2.5 yesterday, it was decided that Dr. Galindo would proceed with laparoscopic cholecystectomy. The patient just had laparoscopic cholecystectomy and he is in the postop recovery area. Dr. Galindo called and stated that there is a possibility of a CBD stone noted on cholangiogram and hence requested transfer to a tertiary place for of immediate ERCP. The patient has a RENA drain in place. He is doing well. He denies any symptoms. PHYSICAL EXAMINATION: He appears comfortable. VITAL SIGNS: Stable. Blood pressure is 133/63, pulse rate 73, temperature 98. HEENT examination unremarkable. Conjunctivae pink. Sclerae slightly icteric. Oral cavity no lesions. NECK: No JVD or lymph node enlargement. CHEST: Clear to auscultation. HEART: Regular rate and rhythm. ABDOMEN: Soft. Bowel sounds are positive. RENA drain in place. Bandages at the site of skin incision. EXTREMITIES: No pedal edema. SKIN: No rashes. NEUROLOGIC: Alert and oriented x3. No focal deficits. LABS: Labs from today show AST 158, ALT 246, alkaline phosphatase 204 and T-bilirubin 2.9. Hepatitis serologies for A, B and C were negative. IMPRESSION: Acute onset of abdominal pain associated with elevated liver function tests and mild jaundice, and CT scan showed multiple gallstones and dilated CBD. Attempted ERCP yesterday for possible choledocholithiasis was unsuccessful, as the scope could not be passed through the pylorus, and hence the procedure had to be terminated. He is status post laparoscopic cholecystectomy with Dr. Galindo today and intraoperative cholangiogram showed a filling defect in the distal common bile duct suspicious for a CBD stone. He has a RENA drain in place and patient is currently clinically doing well. He still has persistent elevation of serum transaminases and labs from today showed a bilirubin of 2.9. RECOMMENDATIONS: I had a lengthy discussion with the patient regarding unsuccessful ERCP yesterday and possible CBD stone noted on intraoperative cholangiogram at the time of laparoscopic cholecystectomy today by Dr. Galindo. At this time we will make arrangements for him to be transferred to a tertiary care institute for possible ERCP as soon as possible. The patient is agreeable to it. Thank you for this consultation. MMALONDRAL / TANNERN: [id number] /
--- NOTE | 2019-09-14 17:32 | P.DS ---
Providers Date of admission: 09/11/19 09:08 Expected date of discharge: 09/14/19 Attending physician: Breanna Glover MD Consults: 09/11/19 09:02 Consult Physician Stat Consulting Provider: Noris Galindo Consult Reason/Comments: Acute cholecystitis Do you want consulting provider notified?: Yes Consult Physician Stat Consulting Provider: Les Proctor Consult Reason/Comments: Acute cholecystitis Do you want consulting provider notified?: Yes 09/11/19 10:50 Consult Physician Routine Consulting Provider: Enzo Vicente Consult Reason/Comments: CAD, CHF, preop Do you want consulting provider notified?: Yes Primary care physician: Collins Bairon [facility] Course: Discharge Diagnosis: Acute Cholecystitis Choledocholithiasis on intra-op cholangiogram Gallstone pancreatits, mild Paroxysmal A fib- Xarelto on hold Ischemic cardiomyopathy with EF 30-35% and AICD in place Transaminitis due to above Anion-gap metabolic acidosis, resolved Dehydration, resolved Hyperkalemia, resolved Hospital Course: Patient is a 74-year-old male with past medical history of coronary artery disease, systolic congestive heart failure with ejection fraction 30-35% status post AICD, and hypertension who presented to the hospital with complaints of abdominal pain. In the ER he underwent an extensive evaluation. He underwent a gallbladder ultrasound which showed distended gallbladder and a positive Sheikh sign. He underwent a chest x-ray which showed no acute process. Initial laboratory analysis showed an elevated potassium at 5.6, carbon dioxide 16, BUN 25, bilirubin 3.3, AST 237, ALT 354, alkaline phosphatase of 270. He also had a mildly elevated lipase at 641. He was admitted for acute cholecyst itis and GI and general surgery were consulted. He was started on Rocephin and Flagyl. He was unable to have an MRCP secondary to his AICD. He underwent a CT abdomen and pelvis which showed numerous calcified gallstones, dilated gallbladder, and some dilation of the biliary tree. He was seen by cardiology and cleared for surgery. His Xarelto has been held since admission. On 09/13/19 an ERCP was attempted with GI. He had a J-shaped stomach and they were unable to intubate the duodenum, and ERCP was aborted. He underwent Lap Cammie on 09/14 with an intraoperative cholangiogram. This showed dye wtihoin the common bile duct but no flow into the duodenum felt to be consistent with choldocholithasis. They were unable to remove the stone. GI and surgery discussed the case and recommended transfer to [facility] for advanced endoscopy. Patient and family agree to transfer. Dr. Robles has accepted the patient at [facility]. Patient seen and examined at bedside. Full feeling in his abdomen no overt pain, no nausea, feeling hungry, no chest pain or shortness of breath. Vital signs reviewed and stable. General: non toxic, no distress, appears at stated age Derm: + jaundice, warm, dry Head: atraumatic, normocephalic, symmetric Eyes: EOMI, no lid lag, + mild sclera icterus Mouth: no lip lesion, mucus membranes moist Cardiovascular: S1S2 reg, no murmur, positive posterior tibial pulse bilateral, Lungs: CTA bilateral, no rhonchi, no rales , no accessory muscle use Abdominal: soft, + tender to palpation RUQ, no guarding, no appreciable organomegaly Ext: no gross muscle atrophy, no edema, no contractures Neuro: CN II-XI grossly intact, no focal neuro deficits Psych: Alert, oriented, appropriate affect A total of 35 minutes of time were spent preparing this complex discharge summary . Patient Condition at Discharge: Stable Plan - Discharge Summary Discharge Rx Participant: No New Discharge Prescriptions: No Action Magnesium Gluconate [Magonate] 500 mg PO DAILY Fish Oil/Dha/Epa [Fish Oil 1,200 mg Fish Oil] 1 cap PO DAILY Borage Oil 1000 Mg 1,000 mg PO DAILY Atorvastatin [Lipitor] 80 mg PO HS #30 tab Nitroglycerin Sl Tabs [Nitrostat] 0.4 mg SUBLINGUAL Q5M PRN #25 tab PRN Reason: Chest Pain Spironolactone [Aldactone] 50 mg PO DAILY #30 tab Multivitamin [Men's Multi-Vitamin] 1 each PO DAILY Formula 303 2 tab PO DAILY Alpha Green 1,000 mg PO DAILY Carvedilol [Coreg] 6.25 mg PO BID Cyanocobalamin [Vitamin B-12] 500 mcg PO DAILY Calcium Carbonate [Calcium] 600 mg PO DAILY Aspirin 81 mg PO MOWEFR Sacubitril/Valsartan [Entresto 24 mg-26 mg Tablet] 1 tab PO BID Rivaroxaban [Xarelto] 20 mg PO DAILY Discharge Medication List Borage Oil 1000 Mg 1,000 mg PO DAILY 07/28/17 [History] Fish Oil/Dha/Epa [Fish Oil 1,200 mg Fish Oil] 1 cap PO DAILY 07/28/17 [History] Magnesium Gluconate [Magonate] 500 mg PO DAILY 07/28/17 [History] Atorvastatin [Lipitor] 80 mg PO HS #30 tab 07/31/17 [Rx] Nitroglycerin Sl Tabs [Nitrostat] 0.4 mg SUBLINGUAL Q5M PRN #25 tab 07/31/17 [Rx] Spironolactone [Aldactone] 50 mg PO DAILY #30 tab 07/31/17 [Rx] Alpha Green 1,000 mg PO DAILY 12/02/17 [History] Formula 303 2 tab PO DAILY 12/02/17 [History] Multivitamin [Men's Multi-Vitamin] 1 each PO DAILY 12/02/17 [History] Aspirin 81 mg PO MOWEFR 09/11/19 [History] Calcium Carbonate [Calcium] 600 mg PO DAILY 09/11/19 [History] Carvedilol [Coreg] 6.25 mg PO BID 09/11/19 [History] Cyanocobalamin [Vitamin B-12] 500 mcg PO DAILY 09/11/19 [History] Rivaroxaban [Xarelto] 20 mg PO DAILY 09/11/19 [History] Sacubitril/Valsartan [Entresto 24 mg-26 mg Tablet] 1 tab PO BID 09/11/19 [History] Follow up Appointment(s)/Referral(s): Collins Waddell [Primary Care Provider] - 1-2 days
[2019-09-14] MEDS: SODIUM CHLORIDE 0.9% 1,000 ML IV SCH (17:49)
[2019-09-14 18:39] VITALS: BP 136/79; PULSE 72; TEMP 97.4
== END 2019-09-14 19:29 | disposition short-term general hospital (02) | DRG 417 ==
LOC: EC 06:42 → 4SSUR 09:08
PROVIDERS: ADMIT Family Medicine; ATTEND Family Medicine
PROC: 0DJ08ZZ Inspection of Upper Intestinal Tract, Via Natural or Artificial Opening Endoscopic (ICD-10-PCS; 2019-09-13)
PROC: 0FT44ZZ Resection of Gallbladder, Percutaneous Endoscopic Approach (ICD-10-PCS; principal; 2019-09-14 13:30)
PROC: BF101ZZ Fluoroscopy of Bile Ducts using Low Osmolar Contrast (ICD-10-PCS; principal; 2019-09-14 13:30)
DX: K80.63 Calculus of gallbladder and bile duct with acute cholecystitis with obstruction (principal); K85.10 Biliary acute pancreatitis without necrosis or infection; E87.1 Hypo-osmolality and hyponatremia; I50.22 Chronic systolic (congestive) heart failure; E87.2 Acidosis; I11.0 Hypertensive heart disease with heart failure; I48.0 Paroxysmal atrial fibrillation; E86.0 Dehydration; E78.5 Hyperlipidemia, unspecified; K76.89 Other specified diseases of liver; E87.5 Hyperkalemia; I25.5 Ischemic cardiomyopathy; I25.10 Atherosclerotic heart disease of native coronary artery without angina pectoris; I25.2 Old myocardial infarction; K21.9 Gastro-esophageal reflux disease without esophagitis; I45.10 Unspecified right bundle-branch block; K59.00 Constipation, unspecified; Z79.82 Long term (current) use of aspirin; Z79.01 Long term (current) use of anticoagulants; Z79.899 Other long term (current) drug therapy; Z87.81 Personal history of (healed) traumatic fracture; Z86.19 Personal history of other infectious and parasitic diseases; Z95.810 Presence of automatic (implantable) cardiac defibrillator; Z95.5 Presence of coronary angioplasty implant and graft; Z88.2 Allergy status to sulfonamides; Z83.3 Family history of diabetes mellitus; Z80.42 Family history of malignant neoplasm of prostate; Z83.79 Family history of other diseases of the digestive system; Z53.9 Procedure and treatment not carried out, unspecified reason
CPT/HCPCS: 36415; 43260; 71046; 74178; 74300; 74330; 76705; 80048; 80053; 80074; 81001; 82150; 82248; 83605; 83690; 83735; 85025; 85610; 85730; 87086; 88304; 93005; 96361; 96374; 99285

== ENCOUNTER → 2019-11-02 | Outpatient (CLI) | payer MEDICARE, OTHER ==
[2019-11-02 13:46] LABS: Basophils % (A) 0 %; Eosinophils # (A) 0.2 k/uL (0-0.7); Eosinophils % (A) 3 %; HCT 36.7 % (39.0-53.0); HGB 11.9 gm/dL (13.0-17.5); Lymphocytes # (A) 1.1 k/uL (1.0-4.8); Lymphocytes % (A) 14 %; MCH 30.4 pg (25.0-35.0); MCHC 32.6 g/dL (31.0-37.0); MCV 93.3 fL (80.0-100.0); Mean Platelet Volume 7.7; Monocytes # (A) 0.7 k/uL (0-1.0); Monocytes % (A) 10 %; Neutrophils # (A) 5.4 k/uL (1.3-7.7); Neutrophils % (A) 70 %; Platelet Count 250 k/uL (150-450); RBC 3.93 m/uL (4.30-5.90); RDW 13.6 % (11.5-15.5); WBC 7.7 k/uL (3.8-10.6)
[2019-11-02 19:20] LABS: African American GFR (CKD) 109.3 (60.0-200.0); Albumin/Globulin Ratio 1.9 (1.60-3.17); Anion Gap 8.2 mmol/L (4.00-12.00); BUN/Creat Ratio 14.29 Ratio (12.00-20.00); Calcium 9.1 mg/dL (8.7-10.3); Carbon Dioxide 25.8 mmol/L (21.6-31.8); Globulin 2.1 g/dL (1.6-3.3); Non-African American GFR(CKD) 94.3 (60.0-200.0); Potassium 4.6 mmol/L (3.5-5.5); Total Bilirubin 0.6 mg/dL (0.2-1.2); Total Protein 6.1 g/dL (6.2-8.2)
== END | disposition home or self-care (01) ==
LOC: LABWHC1 12:56
PROVIDERS: ATTEND Family Medicine
DX: K59.00 Constipation, unspecified (principal); R63.4 Abnormal weight loss
CPT/HCPCS: 36415; 80053; 84443; 85025

== ENCOUNTER → 2019-11-08 | Outpatient (CLI) | payer MEDICARE, OTHER | END | disposition home or self-care (01) | CPT/HCPCS: 74177; Q9967 ×2 ==

== ENCOUNTER 2020-01-17 07:16 | Emergency (ER) | payer MEDICARE, OTHER ==
[2020-01-17 07:33] VITALS: BP 114/83; PULSE 79; RESP 18; TEMP 97.6
--- NOTE | 2020-01-17 07:46 | ED ---
General Adult HPI - General Stated complaint: Abdominal pain Time Seen by Provider: 01/17/20 07:32 Source: patient, RN notes reviewed Mode of arrival: ambulatory Limitations: no limitations - History of Present Illness Initial comments: This a 75-year-old male presents emergency Department chief complaint of lump on his abdomen. Patient states he noticed swelling bends over or moves that he sometimes has a bump. Patient states is not painful. Denies any nausea vomiting diarrhea constipation or dysuria. Patient states that he had surgery a few months ago for his gallbladder. Patient states that he had a stent placed after some complications. Patient states he is much improved at this time. Patient offers no other complaints. - Related Data Home Medications Medication Instructions Recorded Confirmed Borage Oil 1000 Mg 1,000 mg PO DAILY 07/28/17 09/11/19 Fish Oil/Dha/Epa [Fish Oil 1,200 1 cap PO DAILY 07/28/17 09/11/19 mg Fish Oil] Magnesium Gluconate [Magonate] 500 mg PO DAILY 07/28/17 09/11/19 Alpha Green 1,000 mg PO DAILY 12/02/17 09/11/19 Formula 303 2 tab PO DAILY 12/02/17 09/11/19 Multivitamin [Men's Multi-Vitamin] 1 each PO DAILY 12/02/17 09/11/19 Aspirin 81 mg PO MOWEFR 09/11/19 09/11/19 Calcium Carbonate [Calcium] 600 mg PO DAILY 09/11/19 09/11/19 Carvedilol [Coreg] 6.25 mg PO BID 09/11/19 09/11/19 Cyanocobalamin [Vitamin B-12] 500 mcg PO DAILY 09/11/19 09/11/19 Rivaroxaban [Xarelto] 20 mg PO DAILY 09/11/19 09/11/19 Sacubitril/Valsartan [Entresto 24 1 tab PO BID 09/11/19 09/11/19 mg-26 mg Tablet] Previous Rx's Medication Instructions Recorded Atorvastatin [Lipitor] 80 mg PO HS #30 tab 07/31/17 Nitroglycerin Sl Tabs [Nitrostat] 0.4 mg SUBLINGUAL Q5M PRN #25 tab 07/31/17 Spironolactone [Aldactone] 50 mg PO DAILY #30 tab 07/31/17 Allergies Allergy/AdvReac Type Severity Reaction Status Date / Time Sulfa (Sulfonamide Allergy Rash/Hives Verified 09/13/19 12:00 Antibiotics) Review of Systems ROS Statement: Those systems with pertinent positive or pertinent negative responses have been documented in the HPI. ROS Other: All systems not noted in ROS Statement are negative. Past Medical History Past Medical History: Hypertension, Myocardial Infarction ([place]), Osteoarthritis (OA) Additional Past Medical History / Comment(s): past broken nose, dara fever as child, arthrits. 07-28-17 stemi. Implantable defibrillator:12/08/2017 Last Myocardial Infarction Date:: 07/28/2017 History of Any Multi-Drug Resistant Organisms: None Reported Past Surgical History: Cholecystectomy, Heart Catheterization With Stent, Tonsillectomy Additional Past Surgical History / Comment(s): ICD, stent to bile duct Past Anesthesia/Blood Transfusion Reactions: No Reported Reaction Date of Last Stent Placement:: 07/28/2017 Past Psychological History: No Psychological Hx Reported Smoking Status: Never smoker Past Alcohol Use History: Occasional Past Drug Use History: None Reported - Past Family History Father Family Medical History: AICD/Pacemaker, Cancer Additional Family Medical History / Comment(s): prostate cancer General Exam Limitations: no limitations General appearance: alert, in no apparent distress Head exam: Present: atraumatic, normocephalic, normal inspection Eye exam: Present: normal appearance, PERRL, EOMI. Absent: scleral icterus, conjunctival injection, periorbital swelling Respiratory exam: Present: normal lung sounds bilaterally. Absent: respiratory distress, wheezes, rales, rhonchi, stridor Cardiovascular Exam: Present: regular rate, normal rhythm, normal heart sounds. Absent: systolic murmur, diastolic murmur, rubs, gallop, clicks GI/Abdominal exam: Present: soft, normal bowel sounds, hernia (There is a small ventral hernia just superior to the umbilicus, reducible nontender no erythema). Absent: distended, tenderness, guarding, rebound, rigid Course Vital Signs 01/17/20 07:30 Temperature 97.6 F Pulse Rate 79 Respiratory 18 Rate Blood Pressure 114/83 O2 Sat by Pulse 99 Oximetry Medical Decision Making - Medical Decision Making 75-year-old male presented for abdominal issues. Patient has a reducible ventral hernia. Patient will follow-up with his surgeon Dr. Mateo return parameters were discussed. Disposition Clinical Impression: Ventral incisional hernia Disposition: HOME SELF-CARE Condition: Stable Instructions (If sedation given, give patient instructions): Ventral Hernia (ED) Additional Instructions: Please return to the Emergency Department if symptoms worsen or any other concerns. Is patient prescribed a controlled substance at d/c from ED?: No Referrals: Collins Waddell [Primary Care Provider] - 1-2 days Noris Galindo DO [Doctor of Osteopathic Medicine] - 1-2 days Time of Disposition: 07:45
== END 2020-01-17 07:57 | disposition home or self-care (01) ==
LOC: EC 07:16
DX: K43.2 Incisional hernia without obstruction or gangrene (principal); I10 Essential (primary) hypertension; I25.2 Old myocardial infarction; Z79.82 Long term (current) use of aspirin; Z79.899 Other long term (current) drug therapy; Z79.02 Long term (current) use of antithrombotics/antiplatelets; Z79.01 Long term (current) use of anticoagulants; Z88.2 Allergy status to sulfonamides; Z90.49 Acquired absence of other specified parts of digestive tract; Z95.5 Presence of coronary angioplasty implant and graft
CPT/HCPCS: 99283

== ENCOUNTER 2020-01-28 08:09 | Inpatient (IN) | payer MEDICARE, OTHER ==
--- NOTE | 2020-01-28 08:54 | ED ---
General Adult HPI - General Chief complaint: Nausea/Vomiting/Diarrhea Stated complaint: allergic reaction Time Seen by Provider: 01/28/20 08:23 Source: patient Mode of arrival: wheelchair Limitations: no limitations - History of Present Illness Initial comments: Dictation was produced using [employer] dictation software. please excuse any grammatical, word or spelling errors. This patient was cared for during a federal and state declared state of e mergency secondary to Covid 19 Chief Complaint: 75-year-old male with recently diagnosed pancreatic cancer and history of recent bile duct procedure presents with nausea and vomiting. History of Present Illness: Patient 75-year-old male he was recently diagnosed with pancreatic cancer. He had an endoscopy that was performed which showed preliminary results suggesting pancreatic cancer. He denies was at [facility] were he had a biliary ductal stent that was removed however after the procedure is bile duct collapsed leading to an infection. He was started on ciprofloxacin. He is completed her days of ciprofloxacin. 2 days ago he became nauseated. He called his doctor who provided him with some Zofran. He still continued to be nauseous. States that his symptoms are worse when he lies flat. He is ordered to have an outpatient CT and further workup by his [facility] doctors. Denies any fever, chills or night sweats. The ROS documented in this emergency department record has been reviewed and confirmed by me. Those systems with pertinent positive or negative responses have been documented in the HPI. All other systems are other negative and/or noncontributory. PHYSICAL EXAM: General Impression: Alert and oriented x3, not in acute distress HEENT: Normocephalic atraumatic, extra-ocular movements intact, pupils equal and reactive to light bilaterally, mucous membranes moist. Cardiovascular: Heart regular rate and rhythm Chest: Able to complete full sentences, no retractions, no tachypnea Abdomen: abdomen soft, mild diffuse abdominal tenderness with palpation, non- distended, no organomegaly, no right upper quadrant tenderness Musculoskeletal: Pulses present and equal in all extremities, no peripheral edema Motor: no focal deficits noted Neurological: CN II-XII grossly intact, no focal motor or sensory deficits noted Skin: Intact with no visualized rashes Psych: Normal affect and mood ED course: Any 5-year-old male presents with nausea vomiting. Patient had quite an eventful last 7 days having had diagnosis of biliary system infection after removal of biliary ductal stent and being recently diagnosed with pancreatic cancer. Vital signs upon arrival are within acceptable limits. Laboratory evaluation obtained. Leukocytosis of 11.6 of unclear significance. Neutrophils elevated at 9.9. CBC concerning for bacterial infection. Metabolic panel shows sodium 121. This is significantly lower than patient's baseline. Rest metabolic panel within acceptable limits except for magnesium 1.4. Ultrasound abdomen shows no acute processes. Acute abdominal series suggests some mild constipation. Patient has been difficulty tolerating oral intake. Considering patient's clinical presentation she would benefit from inpatient admission for IV fluids and IV antibiotics. Patient is agreeable disposition. Discussed patient case Dr. Guerra who is willing to accept patient's care EKG interpretation: Ventricular rate 94, normal sinus rhythm, right bundle branch block, MS interval 170, QRS 136, QTC 485. No MS prolongation, no QTC prolongation, no ST or T-wave changes noted. EKG compared to 09/11/2019 showing no changes. Overall, this EKG is unremarkable - Related Data Home Medications Medication Instructions Recorded Confirmed Borage Oil 1000 Mg 1,000 mg PO DAILY 07/28/17 09/11/19 Fish Oil/Dha/Epa [Fish Oil 1,200 1 cap PO DAILY 07/28/17 09/11/19 mg Fish Oil] Magnesium Gluconate [Magonate] 500 mg PO DAILY 07/28/17 09/11/19 Alpha Green 1,000 mg PO DAILY 12/02/17 09/11/19 Formula 303 2 tab PO DAILY 12/02/17 09/11/19 Multivitamin [Men's Multi-Vitamin] 1 each PO DAILY 12/02/17 09/11/19 Aspirin 81 mg PO MOWEFR 09/11/19 09/11/19 Calcium Carbonate [Calcium] 600 mg PO DAILY 09/11/19 09/11/19 Carvedilol [Coreg] 6.25 mg PO BID 09/11/19 09/11/19 Cyanocobalamin [Vitamin B-12] 500 mcg PO DAILY 09/11/19 09/11/19 Rivaroxaban [Xarelto] 20 mg PO DAILY 09/11/19 09/11/19 Sacubitril/Valsartan [Entresto 24 1 tab PO BID 09/11/19 09/11/19 mg-26 mg Tablet] Previous Rx's Medication Instructions Recorded Atorvastatin [Lipitor] 80 mg PO HS #30 tab 07/31/17 Nitroglycerin Sl Tabs [Nitrostat] 0.4 mg SUBLINGUAL Q5M PRN #25 tab 07/31/17 Spironolactone [Aldactone] 50 mg PO DAILY #30 tab 07/31/17 Allergies Allergy/AdvReac Type Severity Reaction Status Date / Time Sulfa (Sulfonamide Allergy Rash/Hives Verified 01/28/20 08:19 Antibiotics) Review of Systems ROS Statement: Those systems with pertinent positive or pertinent negative responses have been documented in the HPI. ROS Other: All systems not noted in ROS Statement are negative. Past Medical History Past Medical History: Cancer, Hypertension, Myocardial Infarction (HI), Osteoarthritis (OA) Additional Past Medical History / Comment(s): past broken nose, dara fever as child, arthrits. 07-28-17 stemi. Implantable defibrillator:12/08/2017 Last Myocardial Infarction Date:: 07/28/2017 History of Any Multi-Drug Resistant Organisms: None Reported Past Surgical History: Cholecystectomy, Heart Catheterization With Stent, Tonsillectomy Additional Past Surgical History / Comment(s): ICD, stent to bile duct Past Anesthesia/Blood Transfusion Reactions: No Reported Reaction Date of Last Stent Placement:: 07/28/2017 Past Psychological History: No Psychological Hx Reported Smoking Status: Never smoker Past Alcohol Use History: Occasional Past Drug Use History: None Reported - Past Family History Father Family Medical History: AICD/Pacemaker, Cancer Additional Family Medical History / Comment(s): prostate cancer General Exam Limitations: no limitations Course Vital Signs 01/28/20 01/28/20 08:13 09:12 Temperature 97.8 F 97.6 F Pulse Rate 98 90 Respiratory 18 Rate Blood Pressure 124/84 120/87 O2 Sat by Pulse 98 96 Oximetry Medical Decision Making - Lab Data Result diagrams: 01/28/20 08:45 01/28/20 08:45 Lab Results 01/28/20 01/28/20 01/28/20 Range/Units 08:45 08:45 08:45 WBC 11.6 H (3.8-10.6) k/uL RBC 4.53 (4.30-5.90) m/uL Hgb 12.3 L (13.0-17.5) gm/dL Hct 38.3 L (39.0-53.0) % MCV 84.6 (80.0-100.0) fL MCH 27.2 (25.0-35.0) pg MCHC 32.1 (31.0-37.0) g/dL RDW 15.4 (11.5-15.5) % Plt Count 375 (150-450) k/uL Neutrophils % 85 % Lymphocytes % 6 % Monocytes % 7 % Eosinophils % 0 % Basophils % 0 % Neutrophils # 9.9 H (1.3-7.7) k/uL Lymphocytes # 0.7 L (1.0-4.8) k/uL Monocytes # 0.8 (0-1.0) k/uL Eosinophils # 0.0 (0-0.7) k/uL Basophils # 0.0 (0-0.2) k/uL Sodium 121 L (137-145) mmol/L Potassium 5.1 (3.5-5.1) mmol/L Chloride 84 L (98-107) mmol/L Carbon Dioxide 24 (22-30) mmol/L Anion Gap 13 mmol/L BUN 20 (9-20) mg/dL Creatinine 0.55 L (0.66-1.25) mg/dL Est GFR (CKD-EPI)AfAm >90 (>60 ml/min/1.73 sqM) Est GFR (CKD-EPI)NonAf >90 (>60 ml/min/1.73 sqM) Glucose 273 H (74-99) mg/dL Plasma Lactic Acid Enio 1.3 (0.7-2.0) mmol/L Calcium 8.6 (8.4-10.2) mg/dL Magnesium 1.4 L (1.6-2.3) mg/dL Total Bilirubin 0.7 (0.2-1.3) mg/dL AST 24 (17-59) U/L ALT 45 (4-49) U/L Alkaline Phosphatase 450 H (38-126) U/L Troponin I (0.000-0.034) ng/mL Total Protein 6.6 (6.3-8.2) g/dL Albumin 3.4 L (3.5-5.0) g/dL Lipase 27 (23-300) U/L 01/28/20 Range/Units 08:45 WBC (3.8-10.6) k/uL RBC (4.30-5.90) m/uL Hgb (13.0-17.5) gm/dL Hct (39.0-53.0) % MCV (80.0-100.0) fL MCH (25.0-35.0) pg MCHC (31.0-37.0) g/dL RDW (11.5-15.5) % Plt Count (150-450) k/uL Neutrophils % % Lymphocytes % % Monocytes % % Eosinophils % % Basophils % % Neutrophils # (1.3-7.7) k/uL Lymphocytes # (1.0-4.8) k/uL Monocytes # (0-1.0) k/uL Eosinophils # (0-0.7) k/uL Basophils # (0-0.2) k/uL Sodium (137-145) mmol/L Potassium (3.5-5.1) mmol/L Chloride (98-107) mmol/L Carbon Dioxide (22-30) mmol/L Anion Gap mmol/L BUN (9-20) mg/dL Creatinine (0.66-1.25) mg/dL Est GFR (CKD-EPI)AfAm (>60 ml/min/1.73 sqM) Est GFR (CKD-EPI)NonAf (>60 ml/min/1.73 sqM) Glucose (74-99) mg/dL Plasma Lactic Acid Enio (0.7-2.0) mmol/L Calcium (8.4-10.2) mg/dL Magnesium (1.6-2.3) mg/dL Total Bilirubin (0.2-1.3) mg/dL AST (17-59) U/L ALT (4-49) U/L Alkaline Phosphatase (38-126) U/L Troponin I <0.012 (0.000-0.034) ng/mL Total Protein (6.3-8.2) g/dL Albumin (3.5-5.0) g/dL Lipase (23-300) U/L Disposition Clinical Impression: Hyponatremia Disposition[facility] Condition: Fair Referrals: Collins Waddell [Primary Care Provider] - 1-2 days Decision Time: 12:16
[2020-01-28 09:02] LABS: Basophils % (A) 0 %; Eosinophils % (A) 0 %; HCT 38.3 % (39.0-53.0); HGB 12.3 gm/dL (13.0-17.5); Lymphocytes # (A) 0.7 k/uL (1.0-4.8); Lymphocytes % (A) 6 %; MCH 27.2 pg (25.0-35.0); MCHC 32.1 g/dL (31.0-37.0); MCV 84.6 fL (80.0-100.0); Mean Platelet Volume 7.6; Monocytes # (A) 0.8 k/uL (0-1.0); Monocytes % (A) 7 %; Neutrophils # (A) 9.9 k/uL (1.3-7.7); Neutrophils % (A) 85 %; Platelet Count 375 k/uL (150-450); RBC 4.53 m/uL (4.30-5.90); RDW 15.4 % (11.5-15.5); WBC 11.6 k/uL (3.8-10.6)
[2020-01-28 09:10] LABS: ALT 45 U/L (4-49); AST 24 U/L (17-59); African American GFR (CKD) >90 (>60 ml/min/1.73 sqM); Albumin 3.4 g/dL (3.5-5.0); Alkaline Phosphatase 450 U/L (38-126); Anion Gap 13 mmol/L; Blood Urea Nitrogen 20 mg/dL (9-20); Calcium 8.6 mg/dL (8.4-10.2); Carbon Dioxide 24 mmol/L (22-30); Chloride 84 mmol/L (98-107); Glucose 273 mg/dL (74-99); Magnesium 1.4 mg/dL (1.6-2.3); Non-African American GFR(CKD) >90 (>60 ml/min/1.73 sqM); Potassium 5.1 mmol/L (3.5-5.1); Sodium 121 mmol/L (137-145); Total Bilirubin 0.7 mg/dL (0.2-1.3); Total Protein 6.6 g/dL (6.3-8.2)
--- NOTE | 2020-01-28 09:29 | XR ---
EXAMINATION TYPE: XR abdomen acute w cxr DATE OF EXAM: 01/28/2020 CLINICAL HISTORY: Chest and abdominal pain. History of metastatic pancreatic cancer. TECHNIQUE: Single frontal view of chest is obtained. Supine and upright views of the abdomen are acq uired. COMPARISON: Chest x-ray September 11, 2019. CT abdomen and pelvis November 08, 2019. FINDINGS: Overlying EKG leads are present. The lungs remain grossly clear without pleural effusion or pneumothorax. Cardiac silhouette size appears within normal limits with dual leads pacemaker/AICD r edemonstrated. Osseous structures are intact. There is some possibility of bowel gas. There is single prominent gas-filled small bowel loop in the left midabdomen. Gas and fecal material is seen in the periphery in the colon with moderate prominenc e of colonic fecal material. Cholecystectomy clips are redemonstrated. There is redemonstration of me tallic internal biliary stent with new intraluminal double-J plastic biliary drainage catheter. Vascu lar calcification left upper quadrant and epigastric region. No pneumoperitoneum. Multilevel spurring in the spine. IMPRESSION: 1. No acute pulmonary process. 2. Overall nonspecific but still favor nonobstructive bowel gas pattern. Fairly moderate diffuse colo fili fecal stasis is felt present.
[2020-01-28] MEDS ORDERED: SODIUM CHLORIDE 0.9% 1,000 ML IV STA (10:10)
--- NOTE | 2020-01-28 11:10 | US ---
EXAMINATION TYPE: US abdomen complete DATE OF EXAM: 01/28/2020 COMPARISON: CT 11/08/2019 CLINICAL HISTORY: n/v abdominal pain. nausea/vomiting, cholecystectomy, biliary stent, pancreatic can cer EXAM MEASUREMENTS: Liver Length: 16.6 cm Gallbladder Wall: Surgically absent Spleen: 7.9 cm Right Kidney: 11.5 x 5.0 x 4.5 cm Left Kidney: 10.6 x 6.0 x 5.3 cm Pancreas: hypoechoic area noted within area of pancreas = 4.9 x 4.2 x 4.7cm Liver: cystic areas noted, largest is complex with internal echoes = 2.5 x 2.4 x 2.8cm Gallbladder: Surgically absent Evidence for sonographic Sheikh's sign: no CBD: limited evaluation due to overlying bowel content Spleen: appears wnl Right Kidney: no evidence of hydronephrosis Left Kidney: no evidence of hydronephrosis Upper IVC: Obscured by overlying bowel gas Abd Aorta: wnl IMPRESSION: 1. There is suspicion for a 4.9 cm mass in the region of the pancreas with multiple complex lesions i n the liver. Similar findings have been reported by previous CT scan.
[2020-01-28] MEDS ORDERED: METOCLOPRAMIDE 5 MG/ML 2 ML VIAL IVP STA (11:34)
[2020-01-28] MEDS ORDERED: HYDROcodone/APAP 5-325MG 1 EACH TAB PO PRN (12:12)
[2020-01-28] MEDS ORDERED: NALOXONE 0.4 MG/ML 1 ML VIAL IV PRN (12:12)
[2020-01-28] MEDS ORDERED: ACETAMINOPHEN TAB 325 MG TAB PO PRN (12:12)
[2020-01-28] MEDS ORDERED: SODIUM CHLORIDE 0.9% 1,000 ML IV SCH (12:15)
[2020-01-28] MEDS ORDERED: BORAGE OIL PO SCH (14:00)
[2020-01-28] MEDS: SODIUM CHLORIDE 0.9% 1,000 ML IV SCH (14:12)
[2020-01-28] MEDS: MAGNESIUM SULFATE-D5W PMX 1 GM in DEXTROSE/WATER 1 100ML.BAG IVPB SCH ×2 (15:07→16:16)
[2020-01-28] MEDS: MAGNESIUM OXIDE 400 MG TAB PO SCH (15:12)
[2020-01-28] MEDS: CALCIUM CARBONATE 500 MG CHEWABLE PO SCH (15:12)
--- NOTE | 2020-01-28 15:27 | P.HPIM ---
History of Present Illness H&P Date: 01/28/20 Chief Complaint: Nausea and Vomiting This is a pleasant 75-year-old male who presents to [facility] with increased nausea and vomiting. Past medical history in includes congestive heart failure with defibrillator, atrial fib, hypertension and pancreatic cancer. Patient underwent an endoscopic procedure on his bile duct this past Friday at [facility]. Patient's biliary ductal stent collapsed leading to an infection. A new one was placed . Preliminary reports suggested pancreatic cancer and evidence of cholangitis. Patient was placed on oral ciprofloxacin. Two days later, patient developed nausea and vomiting. He called his doctor who provided him with some Zofran. He still continued to be nauseous. Symptoms are worse when he lies flat. Patient does admit to intermittent abdominal pain described as an ache throughout his abdomen. Ultrasound of the abdomen revealed a 4.9 cm mass in the region of the pancreas with multiple complex lesions in the liver similar findings have been reported by previous computed tomography scan. Abdominal x-ray revealed a fairly moderate diffuse colonic fecal stasis. Once evaluated in the emergency department blood work revealed an elevated white blood cell count of 11.6 mild anemia with hemoglobin of 12.3 and hematocrit 30.3 with normal platelets of 375. Concerning electrolyte abnormality of a 121 sodium was address with IV hydration. Glucose was elevated at 273 however there is no history of diabetes. Hemoglobin A1c will be obtained. Patient be placed on an insulin sliding scale. Magnesium level was 1.4 and this will be replaced with IV magnesium. vitals on initial presentation temperature 97.8F heart rate 98 respiratory rate 18 blood pressure 124/84 oxygen saturation 90% on room air. Patient is resting in bed comfortably nausea and vomiting has slightly subsided with treatment with IV Zofran. Patient denies chest pain, shortness of breath, fever, chills, dysuria, diarrhea,constipation, or neurological deficits. Review of Systems A 12 point review of systems was assessed patient was only positive for those pertinent HPI. Past Medical History Past Medical History: Atrial Fibrillation, Coronary Artery Disease (CAD), Cancer, Hypertension, Myocardial Infarction ([place]), Osteoarthritis (OA) Additional Past Medical History / Comment(s): past broken nose, dara fever as child, arthrits. 07-28-17 stemi. Implantable defibrillator:12/08/2017 Last Myocardial Infarction Date:: 07/28/2017 History of Any Multi-Drug Resistant Organisms: None Reported Past Surgical History: Cholecystectomy, Heart Catheterization With Stent, Tonsillectomy Additional Past Surgical History / Comment(s): ICD, stent to bile duct Past Anesthesia/Blood Transfusion Reactions: No Reported Reaction Date of Last Stent Placement:: 07/28/2017 Past Psychological History: No Psychological Hx Reported Smoking Status: Never smoker Past Alcohol Use History: Occasional Past Drug Use History: None Reported - Past Family History Father Family Medical History: AICD/Pacemaker, Cancer Additional Family Medical History / Comment(s): prostate cancer Medications and Allergies Home Medications Medication Instructions Recorded Confirmed Type Borage Oil 1000 Mg 1,000 mg PO DAILY 07/28/17 01/28/20 History Magnesium Gluconate [Magonate] 500 mg PO DAILY 07/28/17 01/28/20 History Nitroglycerin Sl Tabs [Nitrostat] 0.4 mg SUBLINGUAL Q5M PRN #25 tab 07/31/17 01/28/20 Rx Spironolactone [Aldactone] 50 mg PO DAILY #30 tab 07/31/17 01/28/20 Rx Multivitamin [Men's Multi-Vitamin] 1 tab PO DAILY 12/02/17 01/28/20 History Calcium Carbonate [Calcium] 600 mg PO DAILY 09/11/19 01/28/20 History Carvedilol [Coreg] 6.25 mg PO BID-W/MEALS 09/11/19 01/28/20 History Cyanocobalamin [Vitamin B-12] 500 mcg PO DAILY 09/11/19 01/28/20 History Rivaroxaban [Xarelto] 20 mg PO W/SUPPER 09/11/19 01/28/20 History Sacubitril/Valsartan [Entresto 24 1 tab PO BID-W/MEALS 09/11/19 01/28/20 History mg-26 mg Tablet] Atorvastatin [Lipitor] 80 mg PO W/SUPPER 01/28/20 01/28/20 History Allergies Allergy/AdvReac Type Severity Reaction Status Date / Time Sulfa (Sulfonamide Allergy Rash/Hives Verified 01/28/20 12:48 Antibiotics) ciprofloxacin [From Cipro] AdvReac Nausea & Verified 01/28/20 12:48 Vomiting Physical Exam Osteopathic Statement: *. No significant issues noted on an osteopathic structural exam other than those noted in the History and Physical/Consult. Vitals: Vital Signs Temp Pulse Resp BP Pulse Ox 01/28/20 14:06 98.3 F 100 18 127/79 96 01/28/20 12:22 96 20 111/83 96 01/28/20 09:12 97.6 F 90 120/87 96 01/28/20 08:13 97.8 F 98 18 124/84 98 Intake and Output 01/27/20 01/28/20 01/28/20 22:59 06:59 14:59 Other: Weight 78.925 kg General: [non toxic], [no distress], [appears at stated age] Derm: [warm], [dry] Head: [atraumatic], [normocephalic], [symmetric] Eyes: [EOMI], [no lid lag], [anicteric sclera] Mouth: [no lip lesion], [mucus membranes moist] Cardiovascular: [S1S2 reg], [no murmur], [positive posterior tibial pulse bilateral], Lungs: [CTA bilateral], [no rhonchi, no rales] , [no accessory muscle use] Abdominal: [soft], [ mild tenderness to palpation throughout lower abdomen], [no guarding], [no appreciable organomegaly] Ext: [no gross muscle atrophy], [no edema], [no contractures] Neuro: [ CN II-XI grossly intact], [no focal neuro deficits] Psych: [Alert], [oriented], [appropriate affect] Results CBC & Chem 7: 01/28/20 08:45 01/28/20 08:45 Labs: Abnormal Lab Results - Last 24 Hours (Table) 01/28/20 01/28/20 Range/Units 08:45 08:45 WBC 11.6 H (3.8-10.6) k/uL Hgb 12.3 L (13.0-17.5) gm/dL Hct 38.3 L (39.0-53.0) % Neutrophils # 9.9 H (1.3-7.7) k/uL Lymphocytes # 0.7 L (1.0-4.8) k/uL Sodium 121 L (137-145) mmol/L Chloride 84 L (98-107) mmol/L Creatinine 0.55 L (0.66-1.25) mg/dL Glucose 273 H (74-99) mg/dL Magnesium 1.4 L (1.6-2.3) mg/dL Alkaline Phosphatase 450 H (38-126) U/L Albumin 3.4 L (3.5-5.0) g/dL Thrombosis Risk Factor Assmnt - DVT/VTE Prophylaxis DVT/VTE Prophylaxis: Pharmacologic Prophylaxis ordered Assessment and Plan Assessment: 1. Nausea and vomiting likely a side effect from antibiotic ciprofloxacin DC ciprofloxacin Zofran when necessary nausea 2. Hyponatremia likely caused by #1 and diuretic Aldactone Slow IV hydration Hold Aldactone 3. Leukocytosis likely secondary to recent diagnosis of cholangitis IV Rocephin and Flagyl added today 4. Hyperglycemia concern for diabetes Insulin sliding scale Check hemoglobin A1c 5. New diagnosis of pancreatic cancer from preliminary report at [facility] Check CA-19-9 and CEA 7. History of congestive heart failure with AICD stable 8. History of atrial fib on oral anticoagulation Xarelto and beta dennis 9. History of hypertension Controlled on home meds 10. GI and DVT prophylaxis 11. A.m. labs Patient is a full code. PCP is Dr. Collins Gray Anticipated hospital stay is 1-2 days 45 minutes spent coordinating care and counseling
[2020-01-28] MEDS: ONDANSETRON 4 MG/2 ML VIAL IVP PRN (15:51)
[2020-01-28] MEDS: MULTIVITAMINS, THERA 1 EACH TAB PO SCH (16:20)
[2020-01-28] MEDS: metroNIDAZOLE-NS PMX 500 MG in SALINE 1 100ML.BAG IVPB SCH ×2 (18:01→20:15)
[2020-01-28] MEDS ORDERED: BISACODYL 5 MG TABLET.DR PO STA (19:40)
[2020-01-28] MEDS: ATORVASTATIN 80 MG TAB PO SCH (19:58)
[2020-01-28] MEDS: SACUBITRIL/VALSARTAN 24 MG-26 MG TABLET PO SCH (19:59)
[2020-01-28] MEDS: CYANOCOBALAMIN 500 MCG TAB PO SCH (19:59)
[2020-01-28] MEDS: CARVEDILOL 6.25 MG TAB PO SCH (19:59)
[2020-01-28] MEDS: RIVAROXABAN 20 MG TAB PO SCH (20:06)
[2020-01-28] MEDS: INSULIN ASPART (NovoLOG) 100 UNIT/ML VIAL SQ SCH (20:07)
[2020-01-28 20:11] LABS: Glucose,Whole Blood 262 mg/dL (75-99)
[2020-01-29] MEDS: metroNIDAZOLE-NS PMX 500 MG in SALINE 1 100ML.BAG IVPB SCH ×5 (00:20→23:34)
[2020-01-29] MEDS: ONDANSETRON 4 MG/2 ML VIAL IVP PRN ×2 (00:48→09:13)
[2020-01-29] MEDS: SODIUM CHLORIDE 0.9% 1,000 ML IV SCH ×2 (06:05→17:24)
[2020-01-29 07:34] LABS: Glucose,Whole Blood 209 mg/dL (75-99)
[2020-01-29 08:05] LABS: ALT 28 U/L (4-49); AST 20 U/L (17-59); African American GFR (CKD) >90 (>60 ml/min/1.73 sqM); Albumin 2.6 g/dL (3.5-5.0); Alkaline Phosphatase 307 U/L (38-126); Anion Gap 6 mmol/L; Blood Urea Nitrogen 10 mg/dL (9-20); Calcium 8.2 mg/dL (8.4-10.2); Carbon Dioxide 22 mmol/L (22-30); Chloride 94 mmol/L (98-107); Glucose 194 mg/dL (74-99); Non-African American GFR(CKD) >90 (>60 ml/min/1.73 sqM); Phosphorus 2.8 mg/dL (2.5-4.5); Potassium 4.8 mmol/L (3.5-5.1); Sodium 122 mmol/L (137-145); Total Bilirubin 0.4 mg/dL (0.2-1.3); Total Protein 5.2 g/dL (6.3-8.2)
[2020-01-29 08:44] LABS: HCT 32.4 % (39.0-53.0); HGB 10.9 gm/dL (13.0-17.5); MCH 29.3 pg (25.0-35.0); MCHC 33.6 g/dL (31.0-37.0); MCV 87.1 fL (80.0-100.0); Mean Platelet Volume 7.7; Platelet Count 307 k/uL (150-450); RBC 3.72 m/uL (4.30-5.90); RDW 15.5 % (11.5-15.5); WBC 7.8 k/uL (3.8-10.6)
[2020-01-29] MEDS: INSULIN ASPART (NovoLOG) 100 UNIT/ML VIAL SQ SCH ×3 (09:04→18:14)
[2020-01-29] MEDS: MULTIVITAMINS, THERA 1 EACH TAB PO SCH (09:06)
[2020-01-29] MEDS: CYANOCOBALAMIN 500 MCG TAB PO SCH (09:06)
[2020-01-29] MEDS: CALCIUM CARBONATE 500 MG CHEWABLE PO SCH (09:06)
[2020-01-29] MEDS: MAGNESIUM OXIDE 400 MG TAB PO SCH (09:06)
[2020-01-29] MEDS: CARVEDILOL 6.25 MG TAB PO SCH ×3 (09:07→18:14)
[2020-01-29] MEDS: SACUBITRIL/VALSARTAN 24 MG-26 MG TABLET PO SCH ×2 (09:07→18:11)
[2020-01-29] MEDS: PANTOPRAZOLE 40 MG/10 ML VIAL IV SCH (09:07)
[2020-01-29 12:34] LABS: Glucose,Whole Blood 202 mg/dL (75-99)
[2020-01-29 12:36] LABS: Eosinophils # (M) 0.08 k/uL (0-0.7); Lymphocytes # (M) 1.17 k/uL (1.0-4.8); Monocytes # (M) 0.62 k/uL (0-1.0); Myelocytes # (M) 0.08 k/uL (0); Myelocytes % 1 %; Neutrophils # (M) 5.93 k/uL (1.3-7.7); Neutrophils % (M) 76 %; Nucleated Red Blood Cells 0 /100 WBC (0-0); Total Cells Counted 200
[2020-01-29 12:49] LABS: Poikilocytosis (M) Present
--- NOTE | 2020-01-29 12:57 | P.PN ---
Subjective Progress Note Date: 01/29/20 Principal diagnosis: Hyponatremia with nausea Patient seen and examined at bedside. Patient is resting comfortably. Nausea has improved substantially. Patient is tolerating fluids. Patient denies chest pain, shortness of breath, fever chills or diarrhea. Labs this morning continue to show hyponatremia with a sodium of 122. This is despite being treated with IV fluids. This is a pleasant 75-year-old male who presents to [facility] with increased nausea and vomiting. Past medical history in includes congestive heart failure with defibrillator, atrial fib, hypertension and pancreatic cancer. Patient underwent an endoscopic procedure on his bile duct this past Friday at [facility]. Patient's biliary ductal stent collapsed leading to an infection. A new one was placed . Preliminary reports suggested pancreatic cancer and evidence of cholangitis. Patient was placed on oral ciprofloxacin. Two days later, patient developed nausea and vomiting. He called his doctor who provided him with some Zofran. He still continued to be nauseous. Symptoms are worse when he lies flat. Patient does admit to intermittent abdominal pain described as an ache throughout his abdomen. Ultrasound of the abdomen revealed a 4.9 cm mass in the region of the pancreas with multiple complex lesions in the liver similar findings have been reported by previous computed tomography scan. Abdominal x-ray revealed a fairly moderate diffuse colonic fecal stasis. Objective - Vital Signs Vital signs: Vital Signs Temp 98.6 F 01/29/20 05:00 Pulse 88 01/29/20 09:07 Resp 18 01/29/20 05:00 BP 111/65 01/29/20 09:07 Pulse Ox 97 01/29/20 05:00 Intake & Output 01/28/20 01/29/20 01/29/20 18:59 06:59 18:59 Intake Total 862.5 Balance 862.5 Weight 78.925 kg Intake: Intake, IV Titration 862.5 Amount Sodium Chloride 0.9% 1, 862.5 000 ml @ 75 mls/hr IV . [id number] [facility] Rx#:[id number] Other: # Voids 5 - Exam General: [non toxic], [no distress], [appears at stated age] Derm: [warm], [dry] Head: [atraumatic], [normocephalic], [symmetric] Eyes: [EOMI], [no lid lag], [anicteric sclera] Mouth: [no lip lesion], [mucus membranes moist] Cardiovascular: [S1S2 reg], [no murmur], [positive posterior tibial pulse bilateral], Lungs: [CTA bilateral], [no rhonchi, no rales] , [no accessory muscle use] Abdominal: [soft], [ nontender to palpation], [no guarding], [no appreciable organomegaly] Ext: [no gross muscle atrophy], [no edema], [no contractures] Neuro: [ CN II-XI grossly intact], [no focal neuro deficits] Psych: [Alert], [oriented], [appropriate affect] - Labs CBC & Chem 7: 01/29/20 07:28 01/29/20 07:28 Labs: Abnormal Lab Results - Last 24 Hours (Table) 01/28/20 01/29/20 01/29/20 Range/Units 19:56 07:27 07:28 RBC 3.72 L (4.30-5.90) m/uL Hgb 10.9 L (13.0-17.5) gm/dL Hct 32.4 L (39.0-53.0) % Myelocytes # (Manual) 0.08 H (0) k/uL Sodium (137-145) mmol/L Chloride (98-107) mmol/L Creatinine (0.66-1.25) mg/dL Glucose (74-99) mg/dL POC Glucose (mg/dL) 262 H 209 H (75-99) mg/dL Calcium (8.4-10.2) mg/dL Alkaline Phosphatase (38-126) U/L Total Protein (6.3-8.2) g/dL Albumin (3.5-5.0) g/dL 01/29/20 01/29/20 Range/Units 07:28 12:32 RBC (4.30-5.90) m/uL Hgb (13.0-17.5) gm/dL Hct (39.0-53.0) % Myelocytes # (Manual) (0) k/uL Sodium 122 L (137-145) mmol/L Chloride 94 L (98-107) mmol/L Creatinine 0.44 L (0.66-1.25) mg/dL Glucose 194 H (74-99) mg/dL POC Glucose (mg/dL) 202 H (75-99) mg/dL Calcium 8.2 L (8.4-10.2) mg/dL Alkaline Phosphatase 307 H (38-126) U/L Total Protein 5.2 L (6.3-8.2) g/dL Albumin 2.6 L (3.5-5.0) g/dL Assessment and Plan Assessment: 1. Nausea and vomiting likely a side effect from antibiotic ciprofloxacin improving DC ciprofloxacin Zofran when necessary nausea 2. Hyponatremia likely caused by #1 and diuretic Aldactone Slow IV hydration Hold Aldactone Consult Nephrology 3. Leukocytosis likely secondary to recent diagnosis of cholangitis resolved Continue IV Rocephin and Flagyl 4. Hyperglycemia concern for diabetes Insulin sliding scale Awaiting hemoglobin A1c 5. New diagnosis of pancreatic cancer from preliminary report at [facility] Check CA-19-9 and CEA 7. History of congestive heart failure with AICD stable 8. History of atrial fib on oral anticoagulation Xarelto and beta dennis 9. History of hypertension Controlled on home meds 10. GI and DVT prophylaxis 11. AM labs Time with Patient: Greater than 30
[2020-01-29] MEDS ORDERED: DOCUSATE 100 MG CAP PO SCH (13:00)
[2020-01-29] MEDS: BISACODYL 5 MG TABLET.DR PO PRN (13:17)
[2020-01-29 14:38] VITALS: BMI 22.3
--- NOTE | 2020-01-29 15:26 | P.NPCON ---
History of Present Illness - Reason for Consult Consult date: 01/29/20 hyponatremia - Chief Complaint Nausea vomiting - History of Present Illness This is a 75-year-old male seen in consultation because of hyponatremia. He was diagnosed to have gallstones and underwent a stent placement at [facility] in August. Supposedly it was supposed to be changed but because of the covid- 19 status was postponed until now. He underwent stent change in because of abdominal pain further workup showed CA of the pancreas. He was started on ciprofloxacin was discharged home 2 days ago. He started having nausea vomiting consistently for the last 3-4 days until presentation to this hospital and admission. He was on Aldactone at home and was not eating well. He denies any headache cough shortness of breath chest james. No loose stools Mild abdominal discomfort and upper epigastrium. Supposedly he was also diagnosed to have urinary tract infection or kidney infection as he says it but there was no symptoms suggestive of it. Ciprofloxacin was given to him for both infection of the stent as well as kidney infection Past Medical History Past Medical History: Atrial Fibrillation, Coronary Artery Disease (CAD), Can cer, Hypertension, Myocardial Infarction ([place]), Osteoarthritis (OA) Additional Past Medical History / Comment(s): past broken nose, dara fever as child, arthrits. 07-28-17 stemi. Implantable defibrillator:12/08/2017 Last Myocardial Infarction Date:: 07/28/2017 History of Any Multi-Drug Resistant Organisms: None Reported Past Surgical History: Cholecystectomy, Heart Catheterization With Stent, To nsillectomy Additional Past Surgical History / Comment(s): ICD, stent placed to bile duct augurary 2019- which was removed and replaced with two stents on 01/24/10 at [facility]. Past Anesthesia/Blood Transfusion Reactions: No Reported Reaction Date of Last Stent Placement:: 07/28/2017 Past Psychological History: No Psychological Hx Reported Additional Psychological History / Comment(s): pt is independant. lives with his and 2 pet dogs. served in the [employer]. 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 Smoking Status: Never smoker Past Alcohol Use History: Occasional Past Drug Use History: None Reported - Past Family History Father Family Medical History: Cancer Additional Family Medical History / Comment(s): colon and prostate cancer Son(s) Family Medical History: Cancer Additional Family Medical History / Comment(s): colon ca- 2018 Medications and Allergies Home Medications Medication Instructions Recorded Confirmed Type Borage Oil 1000 Mg 1,000 mg PO DAILY 07/28/17 01/28/20 History Magnesium Gluconate [Magonate] 500 mg PO DAILY 07/28/17 01/28/20 History Nitroglycerin Sl Tabs [Nitrostat] 0.4 mg SUBLINGUAL Q5M PRN #25 tab 07/31/17 01/28/20 Rx Spironolactone [Aldactone] 50 mg PO DAILY #30 tab 07/31/17 01/28/20 Rx Multivitamin [Men's Multi-Vitamin] 1 tab PO DAILY 12/02/17 01/28/20 History Calcium Carbonate [Calcium] 600 mg PO DAILY 09/11/19 01/28/20 History Carvedilol [Coreg] 6.25 mg PO BID-W/MEALS 09/11/19 01/28/20 History Cyanocobalamin [Vitamin B-12] 500 mcg PO DAILY 09/11/19 01/28/20 History Rivaroxaban [Xarelto] 20 mg PO W/SUPPER 09/11/19 01/28/20 History Sacubitril/Valsartan [Entresto 24 1 tab PO BID-W/MEALS 09/11/19 01/28/20 History mg-26 mg Tablet] Atorvastatin [Lipitor] 80 mg PO W/SUPPER 01/28/20 01/28/20 History Allergies Allergy/AdvReac Type Severity Reaction Status Date / Time Sulfa (Sulfonamide Allergy Rash/Hives Verified 01/28/20 12:48 Antibiotics) ciprofloxacin [From Cipro] AdvReac Nausea & Verified 01/28/20 12:48 Vomiting Physical Exam Vitals: Vital Signs Temp Pulse Pulse Pulse Resp BP BP 01/29/20 12:30 97.5 F L 84 18 116/58 01/29/20 09:07 88 111/65 01/29/20 05:00 98.6 F 85 18 106/68 01/28/20 21:00 98.5 F 68 18 119/78 01/28/20 18:00 98.3 F 90 17 130/83 Pulse Ox 01/29/20 12:30 97 01/29/20 09:07 01/29/20 05:00 97 06/05/20 21:00 96 01/28/20 18:00 97 Intake and Output 01/29/20 01/29/20 01/29/20 06:59 14:59 22:59 Intake Total 600 Balance 600 Intake: Intake, IV Titration 600 Amount Sodium Chloride 0.9% 1, 600 000 ml @ 75 mls/hr IV . [id number] ALVIN Rx#:[id number] Other: # Voids 5 Weight 78.925 kg On examination he is awake alert oriented comfortable HEENT exam no JVP neck is supple no facial asymmetry Lungs are clear to auscultation with good air entry bilaterally Heart sounds are unremarkable for murmur rub gallop Abdomen soft nontender nondistended Extremity exam was no edema Neurologically awake alert oriented Results - Lab Results Most recent lab results Calcium 8.2 mg/dL (8.4-10.2) L 01/29/20 07:28 Phosphorus 2.8 mg/dL (2.5-4.5) 01/29/20 07:28 Magnesium 2.0 mg/dL (1.6-2.3) 01/29/20 07:28 01/29/20 07:28 01/29/20 07:28 Assessment and Plan Assessment: Impression 1. Acute hyponatremia secondary to volume depletion most likely but cannot rule out SIADH. He has been on IV normal saline overnight and his sodium has not improved and takes it more likely SIADH . 2. Recent diagnosis of carcinoma of the pancreas 3. Biliary stent initially placed in August because of sludge and gallstones and change recently last few days and Ankit Mandujano 4. Mild anemia hemoglobin is 10.9 Recommendation 1. Maintain IV normal saline at 75 2. Check urine osmolality and sodium. 3. Check orthostatic changes and call me 4. Check uric acid Thank you for this consultation and we'll continue to follow
[2020-01-29 17:02] LABS: Carcinoembryonic Antigen 0.5 ng/mL (0.0-4.9)
[2020-01-29 17:15] LABS: Glucose,Whole Blood 190 mg/dL (75-99)
[2020-01-29] MEDS: ATORVASTATIN 80 MG TAB PO SCH (17:24)
[2020-01-29 18:06] LABS: African American GFR (CKD) >90 (>60 ml/min/1.73 sqM); Anion Gap 7 mmol/L; Blood Urea Nitrogen 9 mg/dL (9-20); Calcium 8.3 mg/dL (8.4-10.2); Carbon Dioxide 24 mmol/L (22-30); Chloride 93 mmol/L (98-107); Glucose 162 mg/dL (74-99); Non-African American GFR(CKD) >90 (>60 ml/min/1.73 sqM); Potassium 4.6 mmol/L (3.5-5.1); Sodium 124 mmol/L (137-145)
[2020-01-29] MEDS: RIVAROXABAN 20 MG TAB PO SCH (18:14)
[2020-01-29 20:16] LABS: Glucose,Whole Blood 217 mg/dL (75-99)
[2020-01-30] MEDS: SODIUM CHLORIDE 0.9% 1,000 ML IV SCH (04:00)
[2020-01-30] MEDS: metroNIDAZOLE-NS PMX 500 MG in SALINE 1 100ML.BAG IVPB SCH ×2 (05:46→12:50)
[2020-01-30 07:06] LABS: Glucose,Whole Blood 171 mg/dL (75-99)
[2020-01-30 07:21] LABS: Basophils % (A) 0 %; Eosinophils # (A) 0.1 k/uL (0-0.7); Eosinophils % (A) 2 %; HCT 31.3 % (39.0-53.0); HGB 10.3 gm/dL (13.0-17.5); Lymphocytes # (A) 1.1 k/uL (1.0-4.8); Lymphocytes % (A) 16 %; MCH 28.8 pg (25.0-35.0); MCHC 32.9 g/dL (31.0-37.0); MCV 87.7 fL (80.0-100.0); Mean Platelet Volume 7.6; Monocytes # (A) 0.5 k/uL (0-1.0); Monocytes % (A) 8 %; Neutrophils # (A) 4.8 k/uL (1.3-7.7); Neutrophils % (A) 71 %; Platelet Count 286 k/uL (150-450); RBC 3.57 m/uL (4.30-5.90); RDW 15.1 % (11.5-15.5); WBC 6.7 k/uL (3.8-10.6)
[2020-01-30 07:33] LABS: ALT 24 U/L (4-49); AST 21 U/L (17-59); African American GFR (CKD) >90 (>60 ml/min/1.73 sqM); Albumin 2.3 g/dL (3.5-5.0); Alkaline Phosphatase 256 U/L (38-126); Anion Gap 5 mmol/L; Blood Urea Nitrogen 7 mg/dL (9-20); Calcium 8.1 mg/dL (8.4-10.2); Carbon Dioxide 24 mmol/L (22-30); Chloride 96 mmol/L (98-107); Glucose 161 mg/dL (74-99); Non-African American GFR(CKD) >90 (>60 ml/min/1.73 sqM); Potassium 4.2 mmol/L (3.5-5.1); Sodium 125 mmol/L (137-145); Total Bilirubin 0.3 mg/dL (0.2-1.3); Total Protein 4.9 g/dL (6.3-8.2)
[2020-01-30] MEDS: CALCIUM CARBONATE 500 MG CHEWABLE PO SCH (08:20)
[2020-01-30] MEDS: SACUBITRIL/VALSARTAN 24 MG-26 MG TABLET PO SCH ×2 (08:20→15:24)
[2020-01-30] MEDS: MAGNESIUM OXIDE 400 MG TAB PO SCH (08:20)
[2020-01-30] MEDS: CARVEDILOL 6.25 MG TAB PO SCH ×2 (08:20→15:24)
[2020-01-30] MEDS: INSULIN ASPART (NovoLOG) 100 UNIT/ML VIAL SQ SCH ×3 (08:20→17:22)
[2020-01-30] MEDS: PANTOPRAZOLE 40 MG/10 ML VIAL IV SCH (08:20)
[2020-01-30] MEDS: CYANOCOBALAMIN 500 MCG TAB PO SCH (08:21)
[2020-01-30] MEDS: MULTIVITAMINS, THERA 1 EACH TAB PO SCH (08:21)
[2020-01-30] MEDS: BENZOCAINE/MENTHOL LOZENG 1 EACH LOZENGE MUCOUS MEM PRN ×3 (10:56→19:53)
[2020-01-30 12:17] LABS: Glucose,Whole Blood 188 mg/dL (75-99)
--- NOTE | 2020-01-30 14:41 | P.PN ---
Subjective Progress Note Date: 01/30/20 Principal diagnosis: Hyponatremia with nausea Patient seen and examined at bedside. Patient is resting comfortably. Nausea has resolved. Patiet is eager to eat solid foods. Patient denies chest pain, shortness of breath, fever chills or diarrhea. Labs this morning continue to show hyponatremia but improved from yesterday with a sodium of 124. Since hemoglobin A1c is 10.0. Patient is a new onset type II diabetic. Patient will be started on Levemir today. This is a pleasant 75-year-old male who presents to [facility] with increased nausea and vomiting. Past medical history in includes congestive heart failure with defibrillator, atrial fib, hypertension and pancreatic cancer. Patient underwent an endoscopic procedure on his bile duct this past Friday at [facility]. Patient's biliary ductal stent collapsed leading to an infection. A new one was placed . Preliminary reports suggested pancreatic cancer and evidence of cholangitis. Patient was placed on oral ciprofloxacin. Two days later, patient developed nausea and vomiting. He called his doctor who provided him with some Zofran. He still continued to be nauseous. Symptoms are worse when he lies flat. Patient does admit to intermittent abdominal pain described as an ache throughout his abdomen. Ultrasound of the abdomen revealed a 4.9 cm mass in the region of the pancreas with multiple complex lesions in the liver similar findings have been reported by previous computed tomography scan. Abdominal x-ray revealed a fairly moderate diffuse colonic fecal stasis. Objective - Vital Signs Vital signs: Vital Signs Temp 98.0 F 01/30/20 13:00 Pulse 79 01/30/20 13:00 Resp 17 01/30/20 13:00 BP 97/63 01/30/20 13:00 Pulse Ox 100 01/30/20 05:43 Intake & Output 01/29/20 01/30/20 01/30/20 18:59 06:59 18:59 Output Total 250 Balance -250 Weight 78.925 kg Output: Urine 250 Other: Voiding Method Toilet # Voids 2 4 2 # Bowel Movements 2 - Exam General: [non toxic], [no distress], [appears at stated age] Derm: [warm], [dry] Head: [atraumatic], [normocephalic], [symmetric] Eyes: [EOMI], [no lid lag], [anicteric sclera] Mouth: [no lip lesion], [mucus membranes moist] Cardiovascular: [S1S2 reg], [no murmur], [positive posterior tibial pulse bilateral], Lungs: [CTA bilateral], [no rhonchi, no rales] , [no accessory muscle use] Abdominal: [soft], [ nontender to palpation], [no guarding], [no appreciable organomegaly] Ext: [no gross muscle atrophy], [no edema], [no contractures] Neuro: [ CN II-XI grossly intact], [no focal neuro deficits] Psych: [Alert], [oriented], [appropriate affect]. - Labs CBC & Chem 7: 01/30/20 06:43 01/30/20 06:43 Labs: Abnormal Lab Results - Last 24 Hours (Table) 01/29/20 01/29/20 01/29/20 Range/Units 07:28 07:28 07:28 RBC (4.30-5.90) m/uL Hgb (13.0-17.5) gm/dL Hct (39.0-53.0) % Sodium (137-145) mmol/L Chloride (98-107) mmol/L BUN (9-20) mg/dL Creatinine (0.66-1.25) mg/dL Glucose (74-99) mg/dL POC Glucose (mg/dL) (75-99) mg/dL Hemoglobin A1c 10.0 H (4.0-6.0) % Uric Acid (3.5-8.5) mg/dL Calcium (8.4-10.2) mg/dL Alkaline Phosphatase (38-126) U/L Total Protein (6.3-8.2) g/dL Albumin (3.5-5.0) g/dL Prealbumin 8.0 L (18.0-42.0) mg/dL CA 19-9 Antigen 2094.0 H (0.0-34.9) U/mL 01/29/20 01/29/20 01/29/20 Range/Units 17:13 17:34 17:34 RBC (4.30-5.90) m/uL Hgb (13.0-17.5) gm/dL Hct (39.0-53.0) % Sodium 124 L (137-145) mmol/L Chloride 93 L (98-107) mmol/L BUN (9-20) mg/dL Creatinine 0.50 L (0.66-1.25) mg/dL Glucose 162 H (74-99) mg/dL POC Glucose (mg/dL) 190 H (75-99) mg/dL Hemoglobin A1c (4.0-6.0) % Uric Acid 1.3 L (3.5-8.5) mg/dL Calcium 8.3 L (8.4-10.2) mg/dL Alkaline Phosphatase (38-126) U/L Total Protein (6.3-8.2) g/dL Albumin (3.5-5.0) g/dL Prealbumin (18.0-42.0) mg/dL CA 19-9 Antigen (0.0-34.9) U/mL 01/29/20 01/30/20 01/30/20 Range/Units 20:13 06:43 06:43 RBC 3.57 L (4.30-5.90) m/uL Hgb 10.3 L (13.0-17.5) gm/dL Hct 31.3 L (39.0-53.0) % Sodium 125 L (137-145) mmol/L Chloride 96 L (98-107) mmol/L BUN 7 L (9-20) mg/dL Creatinine 0.53 L (0.66-1.25) mg/dL Glucose 161 H (74-99) mg/dL POC Glucose (mg/dL) 217 H (75-99) mg/dL Hemoglobin A1c (4.0-6.0) % Uric Acid (3.5-8.5) mg/dL Calcium 8.1 L (8.4-10.2) mg/dL Alkaline Phosphatase 256 H (38-126) U/L Total Protein 4.9 L (6.3-8.2) g/dL Albumin 2.3 L (3.5-5.0) g/dL Prealbumin (18.0-42.0) mg/dL CA 19-9 Antigen (0.0-34.9) U/mL 01/30/20 01/30/20 Range/Units 07:03 12:15 RBC (4.30-5.90) m/uL Hgb (13.0-17.5) gm/dL Hct (39.0-53.0) % Sodium (137-145) mmol/L Chloride (98-107) mmol/L BUN (9-20) mg/dL Creatinine (0.66-1.25) mg/dL Glucose (74-99) mg/dL POC Glucose (mg/dL) 171 H 188 H (75-99) mg/dL Hemoglobin A1c (4.0-6.0) % Uric Acid (3.5-8.5) mg/dL Calcium (8.4-10.2) mg/dL Alkaline Phosphatase (38-126) U/L Total Protein (6.3-8.2) g/dL Albumin (3.5-5.0) g/dL Prealbumin (18.0-42.0) mg/dL CA 19-9 Antigen (0.0-34.9) U/mL Microbiology - Last 24 Hours (Table) 01/29/20 12:10 Blood Culture - Preliminary Blood No Growth after 24 hours Assessment and Plan Assessment: 1. Nausea and vomiting likely a side effect from antibiotic ciprofloxacin resolved Zofran when necessary nausea 2. Hyponatremia likely caused by SIADH Slow IV hydration Hold Aldactone Nephrology recs appreciated 3. Leukocytosis likely secondary to recent diagnosis of cholangitis resolved Continue IV Rocephin and Flagyl 4. Hyperglycemia with new onset type II DM Insulin sliding scale Levemir 5 units sub q q AM 5. New diagnosis of pancreatic cancer from preliminary report at [facility] Check CA-19-9 and CEA 7. History of congestive heart failure with AICD stable 8. History of atrial fib on oral anticoagulation Xarelto and beta dennis 9. History of hypertension Controlled on home meds 10. GI and DVT prophylaxis 11. AM labs
[2020-01-30] MEDS ORDERED: TOLVAPTAN 15 MG 1/2 TABLET PO ONE (15:05)
--- NOTE | 2020-01-30 15:05 | P.PN ---
Subjective Progress Note Date: 01/30/20 Principal diagnosis: This is a 75-year-old male seen in consultation because of hyponatremia. This hyponatremia is likely secondary to volume depletion but could not rule out RODGER DH. The reason for this uncertain days because of IV saline not improving his sodium although by history it was clearly associated with nausea vomiting. Sometimes nausea vomiting could cause SIADH. He has also been diagnosed with carcinoma of the pancreas. A urine osmolality and urine sodium has been ordered but not reported yet. Instead of IV saline at 75 an hour for the last at least 2 days his sodium has not improved much. It was 121 on admission is 125 this morning. Therefore this likely is SIADH This morning he has no significant complaints no headache dizziness chest pain fever chills cough shortness of breath nausea vomiting diarrhea. Appetite is History of present illness ; He was diagnosed to have gallstones and underwent a stent placement at [facility] in August. Supposedly it was supposed to be changed but because of the covid- 19 status was postponed until now. He underwent stent change in because of abdominal pain further workup showed CA of the pancreas. He was started on ciprofloxacin was discharged home 2 days ago. He started having nausea vomiting consistently for the last 3-4 days until presentation to this hospital and admission. He was on Aldactone at home and was not eating well. He denies any headache cough shortness of breath chest james. No loose stools Mild abdominal discomfort and upper epigastrium. Supposedly he was also diagnosed to have urinary tract infection or kidney infection as he says it but there was no symptoms suggestive of it. Ciprofloxacin was given to him for both infection of the stent as well as kidney infection Objective - Vital Signs Vital signs: Vital Signs Temp 98.0 F 01/30/20 13:00 Pulse 79 01/30/20 13:00 Resp 17 01/30/20 13:00 BP 97/63 01/30/20 13:00 Pulse Ox 100 01/30/20 05:43 Intake & Output 01/29/20 01/30/20 01/30/20 18:59 06:59 18:59 Output Total 250 Balance -250 Weight 78.925 kg Output: Urine 250 Other: Voiding Method Toilet # Voids 2 4 2 # Bowel Movements 2 On examination awake alert oriented comfortable HEENT exam no JVP neck is supple no facial asymmetry Lungs are clear to auscultation good air entry bilaterally Heart sounds are unremarkable no murmur rub gallop Abdomen soft nontender Extremity exam was no edema Awake alert oriented comfortable - Labs CBC & Chem 7: 01/30/20 06:43 01/30/20 06:43 Labs: Abnormal Lab Results - Last 24 Hours (Table) 01/29/20 01/29/20 01/29/20 Range/Units 07:28 07:28 07:28 RBC (4.30-5.90) m/uL Hgb (13.0-17.5) gm/dL Hct (39.0-53.0) % Sodium (137-145) mmol/L Chloride (98-107) mmol/L BUN (9-20) mg/dL Creatinine (0.66-1.25) mg/dL Glucose (74-99) mg/dL POC Glucose (mg/dL) (75-99) mg/dL Hemoglobin A1c 10.0 H (4.0-6.0) % Uric Acid (3.5-8.5) mg/dL Calcium (8.4-10.2) mg/dL Alkaline Phosphatase (38-126) U/L Total Protein (6.3-8.2) g/dL Albumin (3.5-5.0) g/dL Prealbumin 8.0 L (18.0-42.0) mg/dL CA 19-9 Antigen 2094.0 H (0.0-34.9) U/mL 01/29/20 01/29/20 01/29/20 Range/Units 17:13 17:34 17:34 RBC (4.30-5.90) m/uL Hgb (13.0-17.5) gm/dL Hct (39.0-53.0) % Sodium 124 L (137-145) mmol/L Chloride 93 L (98-107) mmol/L BUN (9-20) mg/dL Creatinine 0.50 L (0.66-1.25) mg/dL Glucose 162 H (74-99) mg/dL POC Glucose (mg/dL) 190 H (75-99) mg/dL Hemoglobin A1c (4.0-6.0) % Uric Acid 1.3 L (3.5-8.5) mg/dL Calcium 8.3 L (8.4-10.2) mg/dL Alkaline Phosphatase (38-126) U/L Total Protein (6.3-8.2) g/dL Albumin (3.5-5.0) g/dL Prealbumin (18.0-42.0) mg/dL CA 19-9 Antigen (0.0-34.9) U/mL 01/29/20 01/30/20 01/30/20 Range/Units 20:13 06:43 06:43 RBC 3.57 L (4.30-5.90) m/uL Hgb 10.3 L (13.0-17.5) gm/dL Hct 31.3 L (39.0-53.0) % Sodium 125 L (137-145) mmol/L Chloride 96 L (98-107) mmol/L BUN 7 L (9-20) mg/dL Creatinine 0.53 L (0.66-1.25) mg/dL Glucose 161 H (74-99) mg/dL POC Glucose (mg/dL) 217 H (75-99) mg/dL Hemoglobin A1c (4.0-6.0) % Uric Acid (3.5-8.5) mg/dL Calcium 8.1 L (8.4-10.2) mg/dL Alkaline Phosphatase 256 H (38-126) U/L Total Protein 4.9 L (6.3-8.2) g/dL Albumin 2.3 L (3.5-5.0) g/dL Prealbumin (18.0-42.0) mg/dL CA 19-9 Antigen (0.0-34.9) U/mL 01/30/20 01/30/20 Range/Units 07:03 12:15 RBC (4.30-5.90) m/uL Hgb (13.0-17.5) gm/dL Hct (39.0-53.0) % Sodium (137-145) mmol/L Chloride (98-107) mmol/L BUN (9-20) mg/dL Creatinine (0.66-1.25) mg/dL Glucose (74-99) mg/dL POC Glucose (mg/dL) 171 H 188 H (75-99) mg/dL Hemoglobin A1c (4.0-6.0) % Uric Acid (3.5-8.5) mg/dL Calcium (8.4-10.2) mg/dL Alkaline Phosphatase (38-126) U/L Total Protein (6.3-8.2) g/dL Albumin (3.5-5.0) g/dL Prealbumin (18.0-42.0) mg/dL CA 19-9 Antigen (0.0-34.9) U/mL Microbiology - Last 24 Hours (Table) 01/29/20 12:10 Blood Culture - Preliminary Blood No Growth after 24 hours Assessment and Plan Assessment: Impression 1. Acute hyponatremia, initially thought to be secondary to volume depletion. But because it has not responded adequately to normal saline at 75 an hour for 2 days therefore it looks more like SIADH secondary to cancer of the pancreas . 2. Recent diagnosis of carcinoma of the pancreas 3. Biliary stent initially placed in August because of sludge and gallstones and change recently last few days and Ankit Mandujano 4. Mild anemia hemoglobin is 10.9 Recommendation 1. Discontinue IV normal saline 2. We'll give him 15 mg Tolvaptan one dose 3. Fluid restrict 1200 mL per day 4. Increased protein intake
[2020-01-30] MEDS: ATORVASTATIN 80 MG TAB PO SCH (15:35)
[2020-01-30] MEDS: metroNIDAZOLE 500 MG TAB PO SCH ×2 (15:36→23:06)
[2020-01-30] MEDS: RIVAROXABAN 20 MG TAB PO SCH (15:49)
[2020-01-30 16:49] LABS: Glucose,Whole Blood 200 mg/dL (75-99)
[2020-01-30 21:05] LABS: Glucose,Whole Blood 232 mg/dL (75-99)
[2020-01-31] MEDS: BENZOCAINE/MENTHOL LOZENG 1 EACH LOZENGE MUCOUS MEM PRN ×2 (04:42→11:13)
[2020-01-31] MEDS: metroNIDAZOLE 500 MG TAB PO SCH ×2 (05:15→11:13)
[2020-01-31] MEDS ORDERED: INSULIN DETEMIR (LEVEMIR) 100 UNIT/ML SYR SQ SCH (07:00)
[2020-01-31 07:13] LABS: Glucose,Whole Blood 227 mg/dL (75-99)
[2020-01-31 07:34] LABS: ALT 26 U/L (4-49); AST 23 U/L (17-59); African American GFR (CKD) >90 (>60 ml/min/1.73 sqM); Albumin 2.4 g/dL (3.5-5.0); Alkaline Phosphatase 252 U/L (38-126); Anion Gap 4 mmol/L; Blood Urea Nitrogen 7 mg/dL (9-20); Calcium 8.1 mg/dL (8.4-10.2); Carbon Dioxide 24 mmol/L (22-30); Chloride 101 mmol/L (98-107); Glucose 211 mg/dL (74-99); Non-African American GFR(CKD) >90 (>60 ml/min/1.73 sqM); Potassium 4.2 mmol/L (3.5-5.1); Sodium 129 mmol/L (137-145); Total Bilirubin 0.3 mg/dL (0.2-1.3)
[2020-01-31 07:48] LABS: Basophils % (A) 0 %; Eosinophils # (A) 0.1 k/uL (0-0.7); Eosinophils % (A) 1 %; HCT 31.3 % (39.0-53.0); HGB 10.3 gm/dL (13.0-17.5); Lymphocytes # (A) 1.1 k/uL (1.0-4.8); Lymphocytes % (A) 19 %; MCH 28.7 pg (25.0-35.0); MCHC 33.1 g/dL (31.0-37.0); MCV 86.9 fL (80.0-100.0); Mean Platelet Volume 7.5; Monocytes # (A) 0.4 k/uL (0-1.0); Monocytes % (A) 8 %; Neutrophils % (A) 70 %; Platelet Count 293 k/uL (150-450); RDW 15.2 % (11.5-15.5); WBC 5.8 k/uL (3.8-10.6)
--- NOTE | 2020-01-31 08:59 | P.PN ---
Subjective Patient is seen in follow-up for hyponatremia. He received a dose of Samsca yesterday. Sodium level 129 today. Oral intake is gradually improving. No vomiting or diarrhea. No edema. Vital signs are stable. General: The patient appeared well nourished and normally developed. HEENT: Head exam is unremarkable. Neck is without jugular venous distension. LUNGS: Lungs are clear to auscultation and percussion. Breath sounds decreased. HEART: Rate and Rhythm are regular. ABDOMEN: Soft, nontender. EXTREMITITES: No clubbing, cyanosis, or edema. Objective - Vital Signs Vital signs: Vital Signs Temp 98.1 F 01/31/20 05:00 Pulse 80 01/31/20 05:00 Resp 18 01/31/20 05:00 BP 110/70 01/31/20 05:00 Pulse Ox 97 01/31/20 05:00 Intake & Output 01/30/20 01/31/20 01/31/20 18:59 06:59 18:59 Weight 78.925 kg Other: Voiding Method Toilet # Voids 2 3 # Bowel Movements 1 - Labs CBC & Chem 7: 01/31/20 07:00 01/31/20 07:00 Labs: Abnormal Lab Results - Last 24 Hours (Table) 01/30/20 01/30/20 01/30/20 Range/Units 12:15 16:47 20:58 RBC (4.30-5.90) m/uL Hgb (13.0-17.5) gm/dL Hct (39.0-53.0) % Sodium (137-145) mmol/L BUN (9-20) mg/dL Creatinine (0.66-1.25) mg/dL Glucose (74-99) mg/dL POC Glucose (mg/dL) 188 H 200 H 232 H (75-99) mg/dL Calcium (8.4-10.2) mg/dL Alkaline Phosphatase (38-126) U/L Total Protein (6.3-8.2) g/dL Albumin (3.5-5.0) g/dL 01/31/20 01/31/20 01/31/20 Range/Units 07:00 07:00 07:11 RBC 3.60 L (4.30-5.90) m/uL Hgb 10.3 L (13.0-17.5) gm/dL Hct 31.3 L (39.0-53.0) % Sodium 129 L (137-145) mmol/L BUN 7 L (9-20) mg/dL Creatinine 0.41 L (0.66-1.25) mg/dL Glucose 211 H (74-99) mg/dL POC Glucose (mg/dL) 227 H (75-99) mg/dL Calcium 8.1 L (8.4-10.2) mg/dL Alkaline Phosphatase 252 H (38-126) U/L Total Protein 5.0 L (6.3-8.2) g/dL Albumin 2.4 L (3.5-5.0) g/dL Microbiology - Last 24 Hours (Table) 01/29/20 12:10 Blood Culture - Preliminary Blood No Growth after 24 hours Assessment and Plan Plan: Assessment: 1. Hyponatremia. Did improve initially with IV fluids. Appears euvolemic at this time. Concern for SIADH from underlying malignancy. Status post [facility] on January 29. Sodium level 129 today. 2. Recently diagnosed pancreatic cancer. States she scheduled follow-up at [facility] next week. 3. Nausea and vomiting. Possibly gastroenteritis. Better. 4. Recent cholangitis status post delivery stent placement. 5. Insulin-dependent diabetes mellitus. Plan: Maintain 1200 mL fluid restriction. Encourage oral intake, particularly protein. Add sodium chloride tablets 1 g twice daily. Check serum and urine osmolality and urine random sodium. Repeat electrolytes in the morning.
[2020-01-31] MEDS ORDERED: SODIUM CHLORIDE TAB 1 GM TAB PO SCH (09:00)
[2020-01-31] MEDS ORDERED: PANTOPRAZOLE 40 MG TABLET PO SCH (09:00)
[2020-01-31] MEDS: MAGNESIUM OXIDE 400 MG TAB PO SCH (09:06)
[2020-01-31] MEDS: SACUBITRIL/VALSARTAN 24 MG-26 MG TABLET PO SCH (09:06)
[2020-01-31] MEDS: CARVEDILOL 6.25 MG TAB PO SCH (09:06)
[2020-01-31] MEDS: INSULIN ASPART (NovoLOG) 100 UNIT/ML VIAL SQ SCH ×2 (09:07→12:30)
[2020-01-31] MEDS: MULTIVITAMINS, THERA 1 EACH TAB PO SCH (09:07)
[2020-01-31] MEDS: CALCIUM CARBONATE 500 MG CHEWABLE PO SCH (09:07)
[2020-01-31] MEDS: CYANOCOBALAMIN 500 MCG TAB PO SCH (09:08)
[2020-01-31] MEDS: BISACODYL 5 MG TABLET.DR PO PRN (10:04)
[2020-01-31 11:08] LABS: Glucose,Whole Blood 224 mg/dL (75-99)
[2020-01-31 12:55] VITALS: BP 111/74; PULSE 79; RESP 20; TEMP 98
--- NOTE | 2020-01-31 14:05 | P.DS ---
Providers Date of admission: 01/28/20 12:12 Expected date of discharge: 01/31/20 Attending physician: Shira Guerra DO Consults: 01/29/20 11:57 Consult Physician Routine Consulting Provider: Ryan Perez Consult Reason/Comments: hyponatremia Do you want consulting provider notified?: Yes Primary care physician: [facility] Course: 75-year-old male with PMH of congestive heart failure with defibrillator, atrial fibrillation, hypertension and recent diagnosis of pancreatic cancer following at [facility] presents to the ED for nausea and vomiting. He had recent endoscopic procedure with bile duct stenting the past Friday with reports suggesting pancreatic cancer and evidence of cholangitis at [facility]. He was discharged home with ciprofloxacin at that time. Patient was evaluated in the ED. He had a mild leukocytosis of 11.6 and hemoglobin of 12.3. Abdominal ultrasound revealed a 4.9 cm mass in the region of the pancreas with multiple complex lesions in the liver. He had an elevated blood glucose of 273 with no history of diabetes. Patient was initially started on Rocephin and Flagyl for recent diagnosis of cholangitis. Blood cultures were negative at 24 hours. He was transitioned to Flagyl and levofloxacin by mouth at discharge to complete a total of 10 days. His nausea and vomiting improved significantly during his hospitalization. Patient was noted to be hyponatremic on admission with a sodium of 121. This was initially thought to be hypovolemic but his sodium did not improve much with IV fluids. Nephrology was consulted and recommended fluid restriction, 1 dose of tolvaptam and sodium chloride tablets. His sodium improved to 129 at the time of discharge. His serum osmolality was decreased at 277. The supported diagnosis of SIADH. CA-19-9 was elevated at 2094. Patient was advised to follow-up at [facility] for further management of his recent diagnosis of pancreatic cancer. Patient was noted to have hyperglycemia throughout his hospitalization. A1c was elevated at 10. He was started on Levemir 5 units along with insulin sliding scale. Patient was transitioned to Toujeo 10 units daily for management of his diabetes mellitus. Diabetes education was also consulted. Patient was seen and examined. No acute events overnight. Patient reports no symptoms today. He denies any nausea or vomiting. No abdominal pain. He denies any confusion, chest pain, shortness of breath or palpitations. Wanting to go home today. General: [non toxic], [no distress], [appears at stated age] Derm: [warm], [dry] Head: [atraumatic], [normocephalic], [symmetric] Eyes: [EOMI], [no lid lag], [anicteric sclera] Mouth: [no lip lesion], [mucus membranes moist] Cardiovascular: [S1S2 reg], [no murmur], [positive posterior tibial pulse bilateral], Lungs: [CTA bilateral], [no rhonchi, no rales] , [no accessory muscle use] Abdominal: [soft], [ nontender to palpation], [no guarding], [no appreciable organomegaly] Ext: [no gross muscle atrophy], [no edema], [no contractures] Neuro: [no focal neuro deficits] Psych: [Alert], [oriented], [appropriate affect] Hyponatremia likely related to SIADH Newly diagnosed diabetes mellitus with hyperglycemia Pancreatic cancer Cholangitis Stable conditions: CHF, atrial fibrillation, hypertension Patient's sodium has improved from 121 on admission to 129 on discharge. His serum osmolality is low suggesting SIADH. Patient has been instructed fluid restriction and to continue sodium chloride tablets. His Aldactone will be held until his repeat BMP. Patient will need to follow-up BMP with his PCP and to resume his Aldactone. Patient will be discharged home on Toujeo 10 units daily. He will need to see diabetes education prior to discharge. Patient advised to follow-up with [facility] for management of pancreatic cancer. We will discharge patient home on levofloxacin and Flagyl to complete a total of 10 days for recent diagnosis of cholangitis. Patient verbalized understanding of the plan. This complex discharge took about 45 minutes to complete. Pertinent Studies: Acute abdomen series, abdominal ultrasound Patient Condition at Discharge: Stable Plan - Discharge Summary Discharge Rx Participant: No New Discharge Prescriptions: New Levofloxacin [Levaquin] 750 mg PO DAILY 6 Days #6 tab Pantoprazole [Protonix] 40 mg PO DAILY #30 tablet. Sodium Chloride Tab 1 gm PO BID #60 tab metroNIDAZOLE [Flagyl] 500 mg PO Q6HR #24 tab Alcohol Antiseptic Pads [Alcohol Swabs] 1 each TP TID #90 med..pad Lancets 1 each MC TID #90 each Blood Sugar Diagnostic [Test Strips] 1 each MC TID #90 strip Insulin Glargine,Hum.rec.anlog [Tocassius Farris] 10 units SQ DAILY #1 pen Continue Magnesium Gluconate [Magonate] 500 mg PO DAILY Borage Oil 1000 Mg 1,000 mg PO DAILY Nitroglycerin Sl Tabs [Nitrostat] 0.4 mg SUBLINGUAL Q5M PRN #25 tab PRN Reason: Chest Pain Multivitamin [Men's Multi-Vitamin] 1 tab PO DAILY Carvedilol [Coreg] 6.25 mg PO BID-W/MEALS Cyanocobalamin [Vitamin B-12] 500 mcg PO DAILY Calcium Carbonate [Calcium] 600 mg PO DAILY Sacubitril/Valsartan [Entresto 24 mg-26 mg Tablet] 1 tab PO BID-W/MEALS Rivaroxaban [Xarelto] 20 mg PO W/SUPPER Atorvastatin [Lipitor] 80 mg PO W/SUPPER Discontinued Spironolactone [Aldactone] 50 mg PO DAILY #30 tab Discharge Medication List Borage Oil 1000 Mg 1,000 mg PO DAILY 07/28/17 [History] Magnesium Gluconate [Magonate] 500 mg PO DAILY 07/28/17 [History] Nitroglycerin Sl Tabs [Nitrostat] 0.4 mg SUBLINGUAL Q5M PRN #25 tab 07/31/17 [Rx] Multivitamin [Men's Multi-Vitamin] 1 tab PO DAILY 12/02/17 [History] Calcium Carbonate [Calcium] 600 mg PO DAILY 09/11/19 [History] Carvedilol [Coreg] 6.25 mg PO BID-W/MEALS 09/11/19 [History] Cyanocobalamin [Vitamin B-12] 500 mcg PO DAILY 09/11/19 [History] Rivaroxaban [Xarelto] 20 mg PO W/SUPPER 09/11/19 [History] Sacubitril/Valsartan [Entresto 24 mg-26 mg Tablet] 1 tab PO BID-W/MEALS 09/11/19 [History] Atorvastatin [Lipitor] 80 mg PO W/SUPPER 01/28/20 [History] Alcohol Antiseptic Pads [Alcohol Swabs] 1 each TP TID #90 med..pad 01/31/20 [Rx] Blood Sugar Diagnostic [Test Strips] 1 each TID #90 strip 01/31/20 [Rx] Insulin Glargine,Hum.rec.anlog [Touhakeemo Solostar] 10 units SQ DAILY #1 pen 01/31/20 [Rx] Lancets 1 each MC TID #90 each 01/31/20 [Rx] Levofloxacin [Levaquin] 750 mg PO DAILY 6 Days #6 tab 01/31/20 [Rx] Pantoprazole [Protonix] 40 mg PO DAILY #30 tablet. 01/31/20 [Rx] Sodium Chloride Tab 1 gm PO BID #60 tab 01/31/20 [Rx] metroNIDAZOLE [Flagyl] 500 mg PO Q6HR #24 tab 01/31/20 [Rx] Follow up Appointment(s)/Referral(s): Collins Waddell [Primary Care Provider] - 02/02/20 9:30 am Ambulatory/Diagnostic Orders: Basic Metabolic Panel [LAB.AMB] Time Frame: 3 Days, Location: None Selected Patient Instructions/Handouts: Diabetic Hyperglycemia (DC) Activity/Diet/Wound Care/Special Instructions: Diet: Diabetic, Fluid restriction < 1200 cc/day FU PCP within 3 days of DC. Take all medications as advised. Needs diabetic education prior to DC. Start Levemir 5 units at bedtime, to be adjusted by PCP. Hold Aldactone until repeat sodium with PCP. PCP can restart Aldacton at that time if appropriate. Discharge Disposition: HOME SELF-CARE
--- NOTE | 2020-02-01 22:34 | CDI ---
Documentation Clarification Form Date: 02/02/2020 From: Boogie Padilla Phone: If you have a question about this query, please contact Ileana Dalton, Senior Software Tester at [phone] between 8am and 5pm. Admit Date: 01/28/2020 Discharge Date: 01/31/2020 Patient Name: Earl Cerrato Visit Number: [id number] ATTENTION: The Clinical Documentation Specialists (CDI) and [facility] Coding Staff appreciate your assistance in clarifying documentation. Please respond to the clarification below the line at the bottom and electronically sign. The CDI & [facility] Coding staff will review the response and follow-up if needed. Please note: Queries are made part of the Legal Health Record. If you have any questions, please contact the author of this message via ITS. Dear Breanna Hendricks., Atrial Fibrillation is documented in the Progress notes as "History of atrial fib on oral anticoagulation Xarelto and beta dennis" In DS stated as "Stable conditions: CHF, atrial fibrillation, hypertension" History/Risk Factors: CHF, CAD, Hypertension EKG/telemetry: Ventricular rate 94, normal sinus rhythm, right bundle branch block, DE interval 170, QRS 136, QTC 485. Treatment: History of atrial fib on oral anticoagulation Xarelto and beta dennis Consults: Shira Lyn DO In your professional opinion, can you please clarify the type of Atrial Fibrillation, if known? Chronic/Permanent Paroxysmal Persistent Other, please specify Unable to determine paroxysmal MTDD
--- NOTE | 2020-02-01 22:45 | CDI ---
Documentation Clarification Form Date: 02/02/2020 From: Boogie Padilla Phone: If you have a question about this query, please contact Ileana Dalton, Trade Embalmer at [phone] between 8am and 5pm. Admit Date: 01/28/2020 Discharge Date: 01/31/2020 Patient Name: Earl Cerrato Visit Number: [id number] ATTENTION: The Clinical Documentation Specialists (CDI) and [facility] Coding Staff appreciate your assistance in clarifying documentation. Please respond to the clarification below the line at the bottom and electronically sign. The CDI & [facility] Coding staff will review the response and follow-up if needed. Please note: Queries are made part of the Legal Health Record. If you have any questions, please contact the author of this message via ITS. Dear Breanna Hendricks., CHF is documented in the progress notes congestive heart failure and in DS as stable conditions "CHF". History/Risk Factors:CHF, atrial fibrillation, hypertension VS/Pulse OX: Pulse Ox 97 01/31/20 05:00 Echocardiogram Results: NA History of congestive heart failure with AICD stable Treatment: .History of atrial fib on oral anticoagulation Xarelto and beta dennis History of congestive heart failure with AICD stable In your professional opinion, can you please clarify the type of CHF if known? Systolic Heart Failure: Chronic Diastolic Heart Failure: Chronic Unable to Determine Other, please specify chronic systolic MTDD
== END 2020-01-31 14:35 | disposition home or self-care (01) | DRG 644 ==
LOC: EC 08:09 → 5NMEDONC 12:12
PROVIDERS: ADMIT Internal Medicine; ATTEND Internal Medicine
DX: E22.2 Syndrome of inappropriate secretion of antidiuretic hormone (principal); C25.9 Malignant neoplasm of pancreas, unspecified; K83.09 Other cholangitis; I50.22 Chronic systolic (congestive) heart failure; E11.65 Type 2 diabetes mellitus with hyperglycemia; M19.90 Unspecified osteoarthritis, unspecified site; I11.0 Hypertensive heart disease with heart failure; I25.10 Atherosclerotic heart disease of native coronary artery without angina pectoris; D64.9 Anemia, unspecified; E86.9 Volume depletion, unspecified; I48.0 Paroxysmal atrial fibrillation; I45.10 Unspecified right bundle-branch block; Z11.59 Encounter for screening for other viral diseases; Z79.899 Other long term (current) drug therapy; Z79.01 Long term (current) use of anticoagulants; Z79.4 Long term (current) use of insulin; Z88.2 Allergy status to sulfonamides; I25.2 Old myocardial infarction; Z90.49 Acquired absence of other specified parts of digestive tract; Z95.5 Presence of coronary angioplasty implant and graft; Z90.89 Acquired absence of other organs; Z98.890 Other specified postprocedural states; Z80.42 Family history of malignant neoplasm of prostate; Z80.0 Family history of malignant neoplasm of digestive organs; Z85.07 Personal history of malignant neoplasm of pancreas; Z95.818 Presence of other cardiac implants and grafts
CPT/HCPCS: 36415; 74022; 76700; 80048; 80053; 82378; 83036; 83605; 83690; 83735; 83930; 83935; 84100; 84134; 84300; 84484; 84550; 85025; 86301; 87040; 93005; 96361; 96365; 96366; 96367; 96375; 99285

== ENCOUNTER → 2020-02-22 | Outpatient (CLI) | payer MEDICARE, OTHER ==
--- NOTE | 2020-02-22 09:56 | US ---
EXAMINATION TYPE: US abdomen complete DATE OF EXAM: 02/22/2020 COMPARISON: NONE CLINICAL HISTORY: K43.2 Incisional hernia. Pancreatic cancer, bile duct stenting EXAM MEASUREMENTS: Liver Length: 14.7 cm Gallbladder Wall: Surgically absent CBD: 0.5 cm Spleen: 8.7 cm Right Kidney: 12.7 x 4.2 x 5.5 cm Left Kidney: 11.7 x 5.0 x 5.6 cm Pancreas: pancreatic head mass measuring 6.9 x 3.8 x 6.3cm Liver: pneumobilia, liver cysts on left lobe, left lobe difficult to visualize due to midline bowel gas, right lobe cyst seen previous has a thicker appearing wall on today's ultrasound measures 2.5 x 2.5 x 2.7cm Gallbladder: Surgically absent Evidence for sonographic Sheikh's sign: no CBD: wnl Spleen: wnl Right Kidney: wnl Left Kidney: midline exophytic hypoechoic area measuring 1.3 x 0.9 x 1.2, this does not have a typi kia cyst appearance Upper IVC: wnl Abd Aorta: wnl Periumbilical hernia visualized superior to umbilicous. The intrahepatic portion of the IVC and proximal abdominal aorta are within normal limits. Common bi le duct is unremarkable. The spleen is unremarkable. Kidneys are symmetric and free of hydronephros is. IMPRESSION: 1. Pancreatic head mass as noted above. 2. Thick-walled hepatic cystic lesion right hepatic lobe is nonspecific. 3. Nonspecific left renal lesion.
== END | disposition home or self-care (01) ==
LOC: RADUSWWP 07:00
PROVIDERS: ATTEND Family Medicine
DX: K76.89 Other specified diseases of liver (principal); K86.89 Other specified diseases of pancreas
CPT/HCPCS: 76700

== ENCOUNTER → 2020-02-25 | Outpatient (CLI) | payer MEDICARE, OTHER ==
--- NOTE | 2020-02-25 15:09 | PE ---
Nuclear medicine PET/CT HISTORY: Pancreatic carcinoma, carcinoma head of pancreas, C 25.0, initial Patient received 12.5 mCi F-18 FDG intravenously in delayed scanning was performed from the skull bas e to the mid thighs. Localization and attenuation correction CT scan was performed. Exam correlated to CT abdomen pelvis 11/08/2019 Head and neck: There is no cervical or supraclavicular adenopathy. No suspicious uptake. No mediastin al, axillary, or hilar adenopathy. There are leads within the heart. Coronary artery calcifications a re present. Esophagus shows thickening, correlate for possible esophagitis, difficult to exclude a mu cosal lesion. There is subcentimeter subpleural nodule seen on axial image 103 measuring approximatel y 9 mm in the right upper lobe. No associated uptake. No pleural or or sizable pericardial effusion, minimal pericardial fluid suspected. Prominence of pulmonary artery could be indicative of pulmonary artery hypertension. ABDOMEN: There is pneumobilia present. Low dense foci within the liver are present, at least 2 lesion s show associated hypermetabolic uptake in the inferior right lobe. Patient is post cholecystectomy. Head of pancreas lesion shows associated uptake, there is a stent in place within the common bile moises t. Pancreatic atrophy, marked dilation of the pancreatic duct noted No evident retroperitoneal adenop athy. There is a fluid distended stomach present. Osseous structures: No hypermetabolic uptake IMPRESSION: Metastatic disease to the liver. There may be relative obstruction within the duodenum. I ndeterminate lung nodule.
== END | disposition home or self-care (01) ==
LOC: RADPETMAIN 10:18
PROVIDERS: ATTEND Internal Medicine Hematology & Oncology
DX: C78.7 Secondary malignant neoplasm of liver and intrahepatic bile duct (principal); C25.0 Malignant neoplasm of head of pancreas
CPT/HCPCS: 78815; A9552

== ENCOUNTER → 2020-03-13 | Outpatient (CLI) | payer MEDICARE, OTHER ==
--- NOTE | 2020-03-13 12:59 | US ---
EXAMINATION TYPE: US venous doppler duplex LE DATE OF EXAM: 03/13/2020 10:51 AM COMPARISON: NONE CLINICAL HISTORY: Q61.3 Polycystic kidney disease, unspecified. EDEMA SIDE PERFORMED: Bilateral TECHNIQUE: The lower extremity deep venous system is examined utilizing real time linear array sonog radha with graded compression, doppler sonography and color-flow sonography. VESSELS IMAGED: External Iliac Vein (EIV) Common Femoral Vein Deep Femoral Vein Greater Saphenous Vein * Femoral Vein Popliteal Vein Small Saphenous Vein * Proximal Calf Veins (* superficial vessels) There is normal flow, compressibility, vascular waveforms Right Leg: Negative for DVT Left Leg: Negative for DVT IMPRESSION: No evident deep venous arthrosis at or above the knees.
== END | disposition home or self-care (01) ==
LOC: RADUSWWP 09:54
PROVIDERS: ATTEND Internal Medicine Clinical Cardiac Electrophysiology
DX: I82.403 Acute embolism and thrombosis of unspecified deep veins of lower extremity, bilateral (principal); R22.43 Localized swelling, mass and lump, lower limb, bilateral
CPT/HCPCS: 93970

== ENCOUNTER 2020-04-10 08:20 | Observation (INO) | payer MEDICARE, OTHER ==
[2020-04-10] MEDS ORDERED: ASPIRIN 81 MG PO STA (08:38)
--- NOTE | 2020-04-10 08:41 | ED ---
General Adult HPI - General Chief complaint: Chest Pain Stated complaint: heart burn, dizziness Time Seen by Provider: 04/10/20 08:28 Source: patient, family Mode of arrival: wheelchair Limitations: no limitations - History of Present Illness Initial comments: Dictation was produced using [employer] dictation software. please excuse any grammatical, word or spelling errors. This patient was cared for during a federal and state declared state [place] [facility] secondary to Covid 19 Chief Complaint: 75-year-old male with multiple, please presents with chest pain History of Present Illness: Patient is 75-year-old male who presents today with chest pain. He reports that this morning he woke up feeling at baseline. He has history of pancreatic cancer and lives with baseline abdominal pain. Patient states he took 2 of his morning pills. Shortly after began having substernal chest pain. Denies any relation to the jaw or the shoulders. He does port accompanying nausea. No vomiting or diaphoresis. Patient has a history of myocardial infarction. He has had symptoms like this in the past however they would go away spontaneously. Patient states this episode felt like it lasted longer than usual. He took some nitroglycerin with improvement of symptoms. Patient states he is currently pain-free. He does have some nausea. He is here today to be evaluated. Patient has multiple comorbidities. He hasn't had a catheterization in approximately 3 years. 3 years ago he states that when he was diagnosed with myocardial infarction. Since he had a stress test that was done at the industrial organizational psychologist's office. The ROS documented in this emergency department record has been reviewed and confirmed by me. Those systems with pertinent positive or negative responses have been documented in the HPI. All other systems are other negative and/or noncontributory. PHYSICAL EXAM: General Impression: Alert and oriented x3, not in acute distress HEENT: Normocephalic atraumatic, extra-ocular movements intact, pupils equal and reactive to light bilaterally, mucous membranes moist. Cardiovascular: Heart regular rate and rhythm Chest: Able to complete full sentences, no retractions, no tachypnea Abdomen: abdomen soft, non-tender, non-distended, no organomegaly Musculoskeletal: Pulses present and equal in all extremities, no peripheral edema Motor: no focal deficits noted Neurological: CN II-XII grossly intact, no focal motor or sensory deficits noted Skin: Intact with no visualized rashes Psych: Normal affect and mood ED course: 75-year-old male today with atypical chest with typical features. Patient has multiple comorbidities. He has several reasons to have substernal chest pain. He reports that he has hiatal hernia, pancreatic cancer, myocardial infarction. He denies any shortness of breath. Initial blood pressure in triage is taken. Blood pressure is measured at 70/50. Rest of vital signs within acceptable limits. Repeat blood pressure done at bedside in the room with a 87/61. at bedside reports that patient has been having lower than normal blood pressures lately. Shows reports that today he o nly took his Protonix for coming to the emergency department. He took 2 nitroglycerin prior to coming to the emergency department. Last week was last time he had any chemotherapy. Patient given aspirin. Patient reevaluated bedside found with stable medical condition. He states he feels much better. Patient reports being asymptomatic at this time. Denies any shortness of breath. Patient is on anticoagulation medications. Patient be admitted for observation for serial troponins, medical monitoring and cardiology consultation. Case is discussed with Dr. Garcia who is willing to accept patients care. EKG interpretation: Ventricular rate 80, sinus rhythm,. 170, QRS 1:30, QTC 484. No KS prolongation, no QTC prolongation, no ST or T-wave changes noted. EKG compared to 01/28/2020 showing no changes. Overall, this EKG is unremarkable - Related Data Home Medications Medication Instructions Recorded Confirmed Borage Oil 1000 Mg 1,000 mg PO DAILY 07/28/17 02/15/20 Magnesium Gluconate [Magonate] 500 mg PO DAILY 07/28/17 02/15/20 Multivitamin [Men's Multi-Vitamin] 1 tab PO DAILY 12/02/17 02/15/20 Calcium Carbonate [Calcium] 1,200 mg PO DAILY 09/11/19 02/15/20 Carvedilol [Coreg] 6.25 mg PO BID-W/MEALS 09/11/19 02/15/20 Cyanocobalamin [Vitamin B-12] 1,000 mcg PO DAILY 09/11/19 02/15/20 Rivaroxaban [Xarelto] 20 mg PO W/SUPPER 09/11/19 02/15/20 Sacubitril/Valsartan [Entresto 24 1 tab PO BID-W/MEALS 09/11/19 02/15/20 mg-26 mg Tablet] Atorvastatin [Lipitor] 80 mg PO W/SUPPER 01/28/20 02/15/20 Alpha Green 1,000 mg PO DAILY 04/10/20 Aspirin EC [Ecotrin Low Dose] 81 mg PO MOWEFR 04/10/20 04/10/20 Furosemide [Lasix] 20 mg PO DAILY 04/10/20 04/10/20 HYDROcodone/APAP 5-325MG [Ong 0.5 - 1 tab PO BID 04/10/20 04/10/20 5-325] HYDROcodone/APAP 5-325MG [Ong 0.5 - 1 tab PO Q12H PRN 04/10/20 04/10/20 5-325] Insulin Glargine,Hum.rec.anlog 16 unit SQ HS 04/10/20 04/10/20 [Lantus Solostar] Loratadine [Claritin] 10 mg PO DAILY 04/10/20 04/10/20 Ondansetron [Zofran] 4 mg PO Q8H PRN 04/10/20 04/10/20 Pantoprazole [Protonix] 40 mg PO BID 04/10/20 Previous Rx's Medication Instructions Recorded Nitroglycerin Sl Tabs [Nitrostat] 0.4 mg SUBLINGUAL Q5M PRN #25 tab 07/31/17 Allergies Allergy/AdvReac Type Severity Reaction Status Date / Time Sulfa (Sulfonamide Allergy Rash/Hives Verified 04/10/20 09:15 Antibiotics) ciprofloxacin [From Cipro] AdvReac Nausea & Verified 04/10/20 09:15 Vomiting Review of Systems ROS Statement: Those systems with pertinent positive or pertinent negative responses have been documented in the HPI. ROS Other: All systems not noted in ROS Statement are negative. Past Medical History Past Medical History: Atrial Fibrillation, Coronary Artery Disease (CAD), Ca ncer, Hypertension, Myocardial Infarction (ID), Osteoarthritis (OA) Additional Past Medical History / Comment(s): stage 4 pancreatic CA, past broken nose, dara fever as child, arthrits. 07-28-17 stemi. Implantable defibrillator:12/08/2017 Last Myocardial Infarction Date:: 07/28/2017 History of Any Multi-Drug Resistant Organisms: None Reported Past Surgical History: Cholecystectomy, Heart Catheterization With Stent, Tonsillectomy Additional Past Surgical History / Comment(s): ICD, stent placed to bile duct 2019- which was removed and replaced with two stents on 01/24/10 at [facility]. Past Anesthesia/Blood Transfusion Reactions: No Reported Reaction Date of Last Stent Placement:: 07/28/2017 Past Psychological History: No Psychological Hx Reported Smoking Status: Never smoker Past Alcohol Use History: Occasional Past Drug Use History: None Reported - Past Family History Father Family Medical History: Cancer Additional Family Medical History / Comment(s): colon and prostate cancer Son(s) Family Medical History: Cancer Additional Family Medical History / Comment(s): colon ca- 2018 General Exam Limitations: no limitations Course Vital Signs 04/10/20 04/10/20 04/10/20 08:21 08:45 09:25 Temperature 97.5 F L Pulse Rate 87 75 75 Respiratory 16 18 18 Rate Blood Pressure 70/50 87/61 89/60 O2 Sat by Pulse 97 98 98 Oximetry Medical Decision Making - Lab Data Result diagrams: 04/10/20 08:43 04/10/20 08:43 Lab Results 04/10/20 04/10/20 04/10/20 Range/Units 08:43 08:43 08:43 WBC 17.6 H (3.8-10.6) k/uL RBC 3.94 L (4.30-5.90) m/uL Hgb 11.4 L (13.0-17.5) gm/dL Hct 36.1 L (39.0-53.0) % MCV 91.7 (80.0-100.0) fL MCH 28.9 (25.0-35.0) pg MCHC 31.5 (31.0-37.0) g/dL RDW 20.4 H (11.5-15.5) % Plt Count 436 (150-450) k/uL Neutrophils % (Manual) 90 % Lymphocytes % (Manual) 6 % Monocytes % (Manual) 2 % Eosinophils % (Manual) 2 % Neutrophils # (Manual) 15.84 H (1.3-7.7) k/uL Lymphocytes # (Manual) 1.06 (1.0-4.8) k/uL Monocytes # (Manual) 0.35 (0-1.0) k/uL Eosinophils # (Manual) 0.35 (0-0.7) k/uL Nucleated RBCs 0 (0-0) /100 WBC Manual Slide Review Performed Toxic Vacuolation Present Poikilocytosis (manual Present Anisocytosis Moderate Macrocytosis Slight Crenated Cell Present PT 14.0 H (9.0-12.0) sec INR 1.4 H (<1.2) APTT 26.4 (22.0-30.0) sec Sodium 131 L (137-145) mmol/L Potassium 4.2 (3.5-5.1) mmol/L Chloride 100 (98-107) mmol/L Carbon Dioxide 22 (22-30) mmol/L Anion Gap 9 mmol/L BUN 18 (9-20) mg/dL Creatinine 0.39 L (0.66-1.25) mg/dL Est GFR (CKD-EPI)AfAm >90 (>60 ml/min/1.73 sqM) Est GFR (CKD-EPI)NonAf >90 (>60 ml/min/1.73 sqM) Glucose 140 H (74-99) mg/dL Plasma Lactic Acid Enio (0.7-2.0) mmol/L Calcium 8.3 L (8.4-10.2) mg/dL Magnesium 1.7 (1.6-2.3) mg/dL Total Bilirubin 0.6 (0.2-1.3) mg/dL AST 96 H (17-59) U/L ALT 115 H (4-49) U/L Alkaline Phosphatase 301 H (38-126) U/L Troponin I (0.000-0.034) ng/mL Total Protein 5.4 L (6.3-8.2) g/dL Albumin 2.8 L (3.5-5.0) g/dL Lipase <10 L (23-300) U/L 04/10/20 04/10/20 Range/Units 08:43 08:44 WBC (3.8-10.6) k/uL RBC (4.30-5.90) m/uL Hgb (13.0-17.5) gm/dL Hct (39.0-53.0) % MCV (80.0-100.0) fL MCH (25.0-35.0) pg MCHC (31.0-37.0) g/dL RDW (11.5-15.5) % Plt Count (150-450) k/uL Neutrophils % (Manual) % Lymphocytes % (Manual) % Monocytes % (Manual) % Eosinophils % (Manual) % Neutrophils # (Manual) (1.3-7.7) k/uL Lymphocytes # (Manual) (1.0-4.8) k/uL Monocytes # (Manual) (0-1.0) k/uL Eosinophils # (Manual) (0-0.7) k/uL Nucleated RBCs (0-0) /100 WBC Manual Slide Review Toxic Vacuolation Poikilocytosis (manual Anisocytosis Macrocytosis Crenated Cell PT (9.0-12.0) sec INR (<1.2) APTT (22.0-30.0) sec Sodium (137-145) mmol/L Potassium (3.5-5.1) mmol/L Chloride (98-107) mmol/L Carbon Dioxide (22-30) mmol/L Anion Gap mmol/L BUN (9-20) mg/dL Creatinine (0.66-1.25) mg/dL Est GFR (CKD-EPI)AfAm (>60 ml/min/1.73 sqM) Est GFR (CKD-EPI)NonAf (>60 ml/min/1.73 sqM) Glucose (74-99) mg/dL Plasma Lactic Acid Enio 1.2 (0.7-2.0) mmol/L Calcium (8.4-10.2) mg/dL Magnesium (1.6-2.3) mg/dL Total Bilirubin (0.2-1.3) mg/dL AST (17-59) U/L ALT (4-49) U/L Alkaline Phosphatase (38-126) U/L Troponin I <0.012 (0.000-0.034) ng/mL Total Protein (6.3-8.2) g/dL Albumin (3.5-5.0) g/dL Lipase (23-300) U/L Disposition Clinical Impression: Chest pain Disposition: ADMITTED IP TO THIS [facility] Condition: Fair Referrals: Collins Waddell [Primary Care Provider] - 1-2 days Decision Time: 09:41
[2020-04-10] MEDS ORDERED: SODIUM CHLORIDE 0.9% 1,000 ML IV STA (08:42)
[2020-04-10 09:02] LABS: Anisocytosis Moderate; HCT 36.1 % (39.0-53.0); HGB 11.4 gm/dL (13.0-17.5); MCH 28.9 pg (25.0-35.0); MCHC 31.5 g/dL (31.0-37.0); MCV 91.7 fL (80.0-100.0); Macrocytosis Slight; Mean Platelet Volume 9.7; Platelet Count 436 k/uL (150-450); RBC 3.94 m/uL (4.30-5.90); RDW 20.4 % (11.5-15.5); WBC 17.6 k/uL (3.8-10.6)
[2020-04-10 09:08] LABS: ALT 115 U/L (4-49); African American GFR (CKD) >90 (>60 ml/min/1.73 sqM); Albumin 2.8 g/dL (3.5-5.0); Anion Gap 9 mmol/L; Blood Urea Nitrogen 18 mg/dL (9-20); Calcium 8.3 mg/dL (8.4-10.2); Carbon Dioxide 22 mmol/L (22-30); Chloride 100 mmol/L (98-107); Glucose 140 mg/dL (74-99); Non-African American GFR(CKD) >90 (>60 ml/min/1.73 sqM); Sodium 131 mmol/L (137-145); Total Bilirubin 0.6 mg/dL (0.2-1.3); Total Protein 5.4 g/dL (6.3-8.2)
[2020-04-10 09:09] LABS: AST 96 U/L (17-59); Alkaline Phosphatase 301 U/L (38-126); Magnesium 1.7 mg/dL (1.6-2.3); Potassium 4.2 mmol/L (3.5-5.1)
--- NOTE | 2020-04-10 09:10 | XR ---
EXAMINATION TYPE: XR chest 1V portable DATE OF EXAM: 04/10/2020 CLINICAL HISTORY: Chest pain. Heartburn. History of chemotherapy for pancreas cancer. TECHNIQUE: Portable upright view of the chest obtained. COMPARISON: 09/11/2019 chest radiograph FINDINGS: Left-sided dual-chamber AICD. Right-sided MediPort distal tip over the distal SVC. Linear density over the right chest may represent suture material. The cardiomediastinal silhouette is withi n normal limits for size. Pulmonary vasculature is normal. There is no focal air space opacity, pleur al effusion, or pneumothorax seen. The osseous structures are intact. IMPRESSION: No acute cardiopulmonary process.
[2020-04-10 09:19] LABS: INR 1.4 (<1.2); Partial Thromboplastin Time 26.4 sec (22.0-30.0)
[2020-04-10 09:29] LABS: Crenated RBC Present; Eosinophils # (M) 0.35 k/uL (0-0.7); Lymphocytes # (M) 1.06 k/uL (1.0-4.8); Monocytes # (M) 0.35 k/uL (0-1.0); Neutrophils # (M) 15.84 k/uL (1.3-7.7); Neutrophils % (M) 90 %; Nucleated Red Blood Cells 0 /100 WBC (0-0); Poikilocytosis (M) Present; Total Cells Counted 100; Toxic Vacuolation Present
[2020-04-10] MEDS ORDERED: NALOXONE 0.4 MG/ML 1 ML VIAL IV PRN ×2 (09:37→12:14)
[2020-04-10] MEDS ORDERED: ONDANSETRON 4 MG/2 ML VIAL IVP PRN (09:37)
[2020-04-10] MEDS: SODIUM CHLORIDE 0.9% 1,000 ML IV SCH ×2 (11:49→21:18)
[2020-04-10] MEDS ORDERED: CALCIUM CARBONATE 500 MG CHEWABLE PO PRN (12:14)
[2020-04-10] MEDS ORDERED: NITROGLYCERIN SL TABS 0.4 MG TAB SUBLINGUAL PRN (12:17)
[2020-04-10] MEDS ORDERED: HYDROcodone/APAP 5-325MG 1 EACH TAB PO PRN (12:17)
[2020-04-10] MEDS ORDERED: ONDANSETRON 4 MG TAB PO PRN (12:17)
[2020-04-10] MEDS ORDERED: CHLORPROMAZINE 10 MG PO PRN (12:17)
[2020-04-10 12:27] LABS: Appearance,Urine Clear (Clear); Color,Urine Yellow; Specific Gravity,Urine 1.025 (1.001-1.035)
[2020-04-10 12:28] LABS: Bilirubin,Urine Negative (Negative); Glucose,Urine (UA) Negative (Negative); Ketones,Urine Negative (Negative); Leukocyte Esterase,Urine Negative (Negative); Nitrite,Urine Negative (Negative); Protein,Urine 1+ (Negative); Urobilinogen,Urine <2.0 mg/dL (<2.0)
[2020-04-10 12:29] LABS: Blood,Urine Negative (Negative)
[2020-04-10 12:40] LABS: Bacteria,Urine Rare /hpf; Calcium Oxalate Crystals,Urine Moderate /hpf; Mucus,Urine Few /hpf; RBC,Urine 4 /hpf (0-5); Squamous Epithelial Cell,Urine <1 /hpf (0-4); WBC,Urine 2 /hpf (0-5)
--- NOTE | 2020-04-10 12:52 | P.HPIM ---
History of Present Illness H&P Date: 04/10/20 Chief Complaint: Chest pain 75-year-old man with past medical history of heart failure with reduced ejection fraction status post AICD, pancreatitis cancer, paroxsymal atrial fibrillation, chronic pain, HTN/HLD/CAD/DM 2 presented with chest pain. Patient tells me that earlier today he had a bout of substernal chest pain, burning in nature. Initially, this felt like his acid reflux, however did not go away as it usually does. Therefore, out of concern he took nitro, which didn't relieve his pain initially, therefore, following his doctor's instructions he took another nitro and then started to feel a little bit dizzy. Therefore, he presented to the emergency room for further evaluation. Patient denies fevers, chills, nausea, vomiting, abdominal pain, shortness of breath, palpitations, dysuria, dyschezia, numbness/weakness. Patient has pancreatic cancer, but decided several weeks ago to stop taking chemotherapy/treatment. Since then, his reports he's had mildly better appetite, but still is overall poor. He has continued to take his diuretic medications, was recently stopped off of Aldactone, but continues Lasix. Arrival to the emergency room, patient was afebrile, 96/64, heart rate 71, 98% on room air. CBC is remarkable for leukocytosis to 17.6, hemoglobin 11.4, platelets of 436 which are all significantly higher than prior in January 2020. Chemistries are remarkable for hyponatremia to 131, BUN/creatinine of 18, glucose of 140, magnesium 1.7. LFTs are remarkable for protein of 5.4, albumin of 2.8 (both higher than prior), AST/ELT of 96/1:15, alk phos of 301, lipase less than 10. Coagulation profile shows PT of 14, PTT of 26.4, INR 1.4. Troponin was negative. Chest x-ray showed AICD, Mediport, normal pulmonary vasculature. EKG shows normal sinus rhythm with some occasional PACs as well as right bundle branch block and left anterior fascicular block. Review of Systems All Systems reviewed and pertinent positives and negatives noted in HPI, all other symptoms are negative Past Medical History Past Medical History: Atrial Fibrillation, Coronary Artery Disease (CAD), Cancer, Heart Failure, Hypertension, Myocardial Infarction ([place]), Osteoarthritis (OA) Additional Past Medical History / Comment(s): Pancreatic cancer with last chemo 03/22/20-pt no longer wants chemo, newly diagnosed IDDM, cholangitis, hyponatremia, EF 35%/AICD, arthritis bilateral hands/fingers, abdominal hernia, kathy fever as a child. Last Myocardial Infarction Date:: 07/28/2017 History of Any Multi-Drug Resistant Organisms: None Reported Past Surgical History: Cholecystectomy, Heart Catheterization With Stent, Tonsillectomy Additional Past Surgical History / Comment(s): ICD, ERCPs/stent placed to bile duct 2019- which was removed and replaced with two stents on 01/24/10 at [facility], R lung biopsy at [facility], colonoscopies. Past Anesthesia/Blood Transfusion Reactions: No Reported Reaction Date of Last Stent Placement:: 07/28/2017 Past Psychological History: No Psychological Hx Reported Additional Psychological History / Comment(s): Pt resides with his spouse. He is independent. They have one dog. No home care. Smoking Status: Never smoker Past Alcohol Use History: Occasional Past Drug Use History: None Reported - Past Family History Father Family Medical History: Cancer Additional Family Medical History / Comment(s): colon and prostate cancer Son(s) Family Medical History: Cancer Additional Family Medical History / Comment(s): colon ca- 2018 Mother Family Medical History: Diabetes Mellitus Medications and Allergies Home Medications Medication Instructions Recorded Confirmed Type Borage Oil 1000 Mg 1,000 mg PO DAILY 07/28/17 04/10/20 History Magnesium Gluconate [Magonate] 500 mg PO DAILY 07/28/17 04/10/20 History Nitroglycerin Sl Tabs [Nitrostat] 0.4 mg SUBLINGUAL Q5M PRN #25 tab 07/31/17 04/10/20 Rx Multivitamin [Men's Multi-Vitamin] 1 tab PO DAILY 12/02/17 04/10/20 History Calcium Carbonate [Calcium] 1,200 mg PO DAILY 09/11/19 04/10/20 History Carvedilol [Coreg] 6.25 mg PO BID-W/MEALS 09/11/19 04/10/20 History Cyanocobalamin [Vitamin B-12] 1,000 mcg PO DAILY 09/11/19 04/10/20 History Rivaroxaban [Xarelto] 20 mg PO W/SUPPER 09/11/19 04/10/20 History Sacubitril/Valsartan [Entresto 24 1 tab PO BID-W/MEALS 09/11/19 04/10/20 History mg-26 mg Tablet] Atorvastatin [Lipitor] 80 mg PO W/SUPPER 01/28/20 04/10/20 History Acetaminophen Tab [Tylenol] 325 - 650 mg PO Q4H PRN 04/10/20 04/10/20 History Alpha Green 1,000 mg PO DAILY 04/10/20 04/10/20 History Aspirin EC [Ecotrin Low Dose] 81 mg PO MOWEFR 04/10/20 04/10/20 History Furosemide [Lasix] 20 mg PO DAILY 04/10/20 04/10/20 History HYDROcodone/APAP 5-325MG [Ariton 0.5 - 1 tab PO BID 04/10/20 04/10/20 History 5-325] HYDROcodone/APAP 5-325MG [Ariton 0.5 - 1 tab PO Q12H PRN 04/10/20 04/10/20 History 5-325] Insulin Glargine,Hum.rec.anlog 16 unit SQ HS 04/10/20 04/10/20 History [Lantus Solostar] Loratadine [Claritin] 10 mg PO DAILY 04/10/20 04/10/20 History Megestrol 40mg/Ml 80 mg PO DAILY 04/10/20 04/10/20 History Ondansetron [Zofran] 4 mg PO Q8H PRN 04/10/20 04/10/20 History Pantoprazole [Protonix] 40 mg PO BID 04/10/20 04/10/20 History chlorproMAZINE [Thorazine] 10 mg PO Q6H PRN 04/10/20 04/10/20 History Allergies Allergy/AdvReac Type Severity Reaction Status Date / Time Sulfa (Sulfonamide Allergy Rash/Hives Verified 04/10/20 09:15 Antibiotics) ciprofloxacin [From Cipro] AdvReac Nausea & Verified 04/10/20 09:15 Vomiting Physical Exam Osteopathic Statement: *. No significant issues noted on an osteopathic structural exam other than those noted in the History and Physical/Consult. Vitals: Vital Signs Temp Pulse Resp BP Pulse Ox 04/10/20 12:14 97.5 F L 71 18 96/64 98 04/10/20 11:00 71 18 96/64 98 04/10/20 10:00 18 98 04/10/20 09:25 75 18 89/60 98 04/10/20 08:45 75 18 87/61 98 04/10/20 08:21 97.5 F L 87 16 70/50 97 Intake and Output 04/09/20 04/10/20 04/10/20 22:59 06:59 14:59 Other: Weight 72.575 kg Gen: awake, alert HEENT: normocephalic, atraumatic, good hearing acuity, dry mucous membranes Resp: CTAB, good air exchange, no accessory muscle use, no wheezes, crackles, rhonchi CVS: good distal perfusion x 4, irregular rhythm, normal rate, soft systolic murmur, clicks, gallops GI: soft, NTTP, ND : no SPT, no CVAT, cortés catheter not present MSK: no pitting edema, no clubbing Neuro: non-focal, no sensory deficits, appropriate tone Psych: cooperative, euthymic mood Results CBC & Chem 7: 04/10/20 08:43 04/10/20 08:43 Labs: Abnormal Lab Results - Last 24 Hours (Table) 04/10/20 04/10/20 04/10/20 Range/Units 08:43 08:43 08:43 WBC 17.6 H (3.8-10.6) k/uL RBC 3.94 L (4.30-5.90) m/uL Hgb 11.4 L (13.0-17.5) gm/dL Hct 36.1 L (39.0-53.0) % RDW 20.4 H (11.5-15.5) % Neutrophils # (Manual) 15.84 H (1.3-7.7) k/uL PT 14.0 H (9.0-12.0) sec INR 1.4 H (<1.2) Sodium 131 L (137-145) mmol/L Creatinine 0.39 L (0.66-1.25) mg/dL Glucose 140 H (74-99) mg/dL Calcium 8.3 L (8.4-10.2) mg/dL AST 96 H (17-59) U/L ALT 115 H (4-49) U/L Alkaline Phosphatase 301 H (38-126) U/L Total Protein 5.4 L (6.3-8.2) g/dL Albumin 2.8 L (3.5-5.0) g/dL Lipase <10 L (23-300) U/L Thrombosis Risk Factor Assmnt - Choose All That Apply Any of the Below Risk Factors Present?: Yes Other Risk Factors: Yes Each Risk Factor Represents 2 Points: Age 61-74 years, Malignancy Other congenital or acquired thrombophilia - If yes, enter type in comment: No Thrombosis Risk Factor Assessment Total Risk Factor Score: 4 Thrombosis Risk Factor Assessment Level: Moderate Risk Assessment and Plan Assessment: 1. Chest pain, atypical 2. Hypotension 3. Chronic Systolic Heart Failure, NYHA Class II, EF 30-35%, s/p AICD 4. Paroxysmal Atrial Fibrillation, rate controlled 5. Pancreatic Cancer 6. Hypertension 7. Hyperlipidemia 8. Diabetes Type II 9. CAD 10. Chronic Pain This 75-year-old man with past medical history of heart failure with reduced ejection fraction status post AICD, pancreatitis cancer, permanent atrial fibrillation, chronic pain, HTN/HLD/CAD/DM 2 presented with atypical chest pain, took 2 nitroglycerin and presented with hypotension but resolution of his chest pain, negative troponins, nonischemic EKG; medicine admitted to observation to ensure no rising troponins as well as to monitor blood pressure. Plan: #Chest Pain, atypical - trend troponins - monitor on telemetry - AICD interrogation - cardiology c/s to facilitate further recs - continue PPI, tums PRN #Hypotension - multifactorial: could be from nitro superimposed on overdiuresis secondary to lasix and poor PO intake - replace IVF via 1L bolus (in ER) then 80cc/hr x 24 hours - hold home dose lasix tomorrow - if no improvement in pressure, can consider reducing home coreg or switching to metoprolol - UA to check specific gravity #Pancreatic Cancer #Chronic Pain #DM II - continue home narcotic regimen - half dose home long acting insulin while in house - nutrition consult for calorie intake analysis Chronic Medical Conditions: #Heart Failure #Atrial Fibrillation - monitor I/Os, daily weights, cardiology to help manage - continue coreg as above - continue xarelto #HTN #HLD #CAD - continue home meds unless otherwise addressed above
[2020-04-10 13:30] VITALS: BMI 21.1
[2020-04-10 16:05] VITALS: RESP 16
[2020-04-10] MEDS: PANTOPRAZOLE 40 MG TABLET PO SCH (17:04)
[2020-04-10] MEDS ORDERED: ATORVASTATIN 80 MG TAB PO SCH (17:30)
[2020-04-10] MEDS ORDERED: RIVAROXABAN 20 MG TAB PO SCH (17:30)
[2020-04-10] MEDS ORDERED: carvediloL 6.25 MG TAB PO SCH (17:30)
[2020-04-10] MEDS: ACETAMINOPHEN TAB 325 MG TAB PO PRN (18:14)
[2020-04-10] MEDS: SACUBITRIL/VALSARTAN 24 MG-26 MG TABLET PO SCH (18:14)
[2020-04-10] MEDS ORDERED: INSULIN DETEMIR (LEVEMIR) 100 UNIT/ML SYR SQ SCH (21:00)
[2020-04-10 21:13] LABS: Glucose,Whole Blood 164 mg/dL (75-99)
[2020-04-10] MEDS: HYDROcodone/APAP 5-325MG 1 EACH TAB PO SCH (21:15)
[2020-04-11 06:49] LABS: African American GFR (CKD) >90 (>60 ml/min/1.73 sqM); Anion Gap 3 mmol/L; Blood Urea Nitrogen 15 mg/dL (9-20); Calcium 7.7 mg/dL (8.4-10.2); Carbon Dioxide 26 mmol/L (22-30); Chloride 102 mmol/L (98-107); Glucose 119 mg/dL (74-99); Magnesium 1.7 mg/dL (1.6-2.3); Non-African American GFR(CKD) >90 (>60 ml/min/1.73 sqM); Potassium 3.3 mmol/L (3.5-5.1); Sodium 131 mmol/L (137-145)
[2020-04-11 07:07] LABS: Anisocytosis Moderate; Basophils # (A) 0.1 k/uL (0-0.2); Basophils % (A) 0 %; Eosinophils # (A) 0.2 k/uL (0-0.7); Eosinophils % (A) 2 %; HCT 31.6 % (39.0-53.0); Hypochromasia Slight; Lymphocytes # (A) 0.7 k/uL (1.0-4.8); Lymphocytes % (A) 5 %; MCH 29.1 pg (25.0-35.0); MCHC 31.6 g/dL (31.0-37.0); Macrocytosis Slight; Mean Platelet Volume 8.4; Monocytes # (A) 1.9 k/uL (0-1.0); Monocytes % (A) 14 %; Neutrophils # (A) 10.8 k/uL (1.3-7.7); Neutrophils % (A) 78 %; Platelet Count 334 k/uL (150-450); RBC 3.43 m/uL (4.30-5.90); RDW 20.5 % (11.5-15.5); WBC 13.8 k/uL (3.8-10.6)
[2020-04-11 08:05] LABS: Crenated RBC Present; Poikilocytosis (M) Present
[2020-04-11] MEDS ORDERED: POTASSIUM CHLORIDE ER 20 MEQ TAB.ER PO STA (08:15)
[2020-04-11] MEDS: PANTOPRAZOLE 40 MG TABLET PO SCH (08:43)
[2020-04-11] MEDS: HYDROcodone/APAP 5-325MG 1 EACH TAB PO SCH (08:48)
[2020-04-11] MEDS: MAGNESIUM SULFATE-D5W PMX 1 GM in DEXTROSE/WATER 1 100ML.BAG IVPB SCH ×2 (08:48→10:09)
[2020-04-11] MEDS: ACETAMINOPHEN TAB 325 MG TAB PO PRN ×2 (08:57→15:21)
[2020-04-11] MEDS ORDERED: [UNRECOGNIZED DRUG - OTHER] PO SCH (09:00)
[2020-04-11] MEDS ORDERED: PANTOPRAZOLE 40 MG/10 ML VIAL IV SCH (09:00)
[2020-04-11] MEDS ORDERED: BORAGE OIL PO SCH (09:00)
[2020-04-11] MEDS ORDERED: MAGNESIUM OXIDE 400 MG TAB PO SCH (09:00)
[2020-04-11] MEDS ORDERED: CALCIUM CARBONATE 500 MG CHEWABLE PO SCH (09:00)
[2020-04-11] MEDS ORDERED: MULTIVITAMINS, THERA 1 EACH TAB PO SCH (09:00)
[2020-04-11] MEDS ORDERED: LORATADINE 10 MG TAB PO SCH (09:00)
[2020-04-11] MEDS ORDERED: MEGESTROL 40 MG TAB PO SCH (09:00)
[2020-04-11] MEDS ORDERED: CYANOCOBALAMIN 500 MCG TAB PO SCH (09:00)
[2020-04-11] MEDS: SACUBITRIL/VALSARTAN 24 MG-26 MG TABLET PO SCH (09:01)
[2020-04-11] MEDS: SODIUM CHLORIDE 0.9% 1,000 ML IV SCH (09:10)
--- NOTE | 2020-04-11 09:56 | P.CRDCN ---
History of Present Illness Consult date: 04/11/20 Chief complaint: Chest History of present illness: This is a very pleasant 75-year-old gentleman with coronary artery disease and prior stenting of the LAD in 2017, ischemic cardiomyopathy and status post AICD, paroxysmal atrial fibrillation as well as hypertension and dyslipidemia and recent diagnosis of pancreatic cancer presented to the hospital complaining of chest discomfort. The patient was receiving chemotherapy recently for pancreat ic cancer but he stopped the chemotherapy because of the side effect including gastrointestinal side effect. The main side effect where symptoms of nausea and vomiting and also decreased appetite. He was in his usual state of health yesterday when he was at home and started experiencing discomfort in the chest discomfort as a burning sensation in the middle of the chest without any radiation to the arms or neck or shoulders and without any associated symptoms. Because of that he decided to come to the hospital. Initially he took nitroglycerin without any improvement but with a second nitroglycerin he started feeling better. In the hospital he was slightly hypotensive but he was not eati ng and drinking well. Beside that the EKG showed sinus rhythm with RBBB and without any ischemic ST or T-wave abnormalities. The blood work overall came in to be unremarkable into of cardiac enzymes and troponin. The chest x-ray did not show any acute abnormalities. The patient has been chest pain-free through the hospital stay. At this point I would advise a conservative medical approach giving the prognosis of the patient was pancreatic cancer. His pressure has been marginally low. I'm going to give the patient a total of 200 mL of 0.9 normal saline as a bolus of IV fluid. I will obtain an echocardiogram with Doppler. I will continue following up with the patient and consider cons ervative medical approach if he continues to be chest pain-free. Past Medical History Past Medical History: Atrial Fibrillation, Coronary Artery Disease (CAD), Cancer, Heart Failure, Hypertension, Myocardial Infarction (PR), Osteoarthritis (OA) Additional Past Medical History / Comment(s): Pancreatic cancer with last chemo 03/22/20-pt no longer wants chemo, newly diagnosed IDDM, cholangitis, hyponatremia, EF 35%/AICD, arthritis bilateral hands/fingers, abdominal hernia, kathy fever as a child. Last Myocardial Infarction Date:: 07/28/2017 History of Any Multi-Drug Resistant Organisms: None Reported Past Surgical History: Cholecystectomy, Heart Catheterization With Stent, Tonsillectomy Additional Past Surgical History / Comment(s): ICD, ERCPs/stent placed to bile duct augurary 2019- which was removed and replaced with two stents on 01/24/10 at [facility] lung biopsy at [facility], colonoscopies. Past Anesthesia/Blood Transfusion Reactions: No Reported Reaction Date of Last Stent Placement:: 07/28/2017 Past Psychological History: No Psychological Hx Reported Additional Psychological History / Comment(s): Pt resides with his spouse. He is independent. They have one dog. No home care. Smoking Status: Never smoker Past Alcohol Use History: Occasional Past Drug Use History: None Reported - Past Family History Father Family Medical History: Cancer Additional Family Medical History / Comment(s): colon and prostate cancer Son(s) Family Medical History: Cancer Additional Family Medical History / Comment(s): colon ca- 2018 Mother Family Medical History: Diabetes Mellitus Medications and Allergies Home Medications Medication Instructions Recorded Confirmed Type Borage Oil 1000 Mg 1,000 mg PO DAILY 07/28/17 04/10/20 History Magnesium Gluconate [Magonate] 500 mg PO DAILY 07/28/17 04/10/20 History Nitroglycerin Sl Tabs [Nitrostat] 0.4 mg SUBLINGUAL Q5M PRN #25 tab 07/31/17 04/10/20 Rx Multivitamin [Men's Multi-Vitamin] 1 tab PO DAILY 12/02/17 04/10/20 History Calcium Carbonate [Calcium] 1,200 mg PO DAILY 09/11/19 04/10/20 History Carvedilol [Coreg] 6.25 mg PO BID-W/MEALS 09/11/19 04/10/20 History Cyanocobalamin [Vitamin B-12] 1,000 mcg PO DAILY 09/11/19 04/10/20 History Rivaroxaban [Xarelto] 20 mg PO W/SUPPER 09/11/19 04/10/20 History Sacubitril/Valsartan [Entresto 24 1 tab PO BID-W/MEALS 09/11/19 04/10/20 History mg-26 mg Tablet] Atorvastatin [Lipitor] 80 mg PO W/SUPPER 01/28/20 04/10/20 History Acetaminophen Tab [Tylenol] 325 - 650 mg PO Q4H PRN 04/10/20 04/10/20 History Alpha Green 1,000 mg PO DAILY 04/10/20 04/10/20 History Aspirin EC [Ecotrin Low Dose] 81 mg PO MOWEFR 04/10/20 04/10/20 History Furosemide [Lasix] 20 mg PO DAILY 04/10/20 04/10/20 History HYDROcodone/APAP 5-325MG [[place] 0.5 - 1 tab PO BID 04/10/20 04/10/20 History 5-325] HYDROcodone/APAP 5-325MG [[place] 0.5 - 1 tab PO Q12H PRN 04/10/20 04/10/20 History 5-325] Insulin Glargine,Hum.rec.anlog 16 unit SQ HS 04/10/20 04/10/20 History [Lantus Solostar] Loratadine [Claritin] 10 mg PO DAILY 04/10/20 04/10/20 History Megestrol 40mg/Ml 80 mg PO DAILY 04/10/20 04/10/20 History Ondansetron [Zofran] 4 mg PO Q8H PRN 04/10/20 04/10/20 History Pantoprazole [Protonix] 40 mg PO BID 04/10/20 04/10/20 History chlorproMAZINE [Thorazine] 10 mg PO Q6H PRN 04/10/20 04/10/20 History Allergies Allergy/AdvReac Type Severity Reaction Status Date / Time Sulfa (Sulfonamide Allergy Rash/Hives Verified 04/10/20 09:15 Antibiotics) ciprofloxacin [From Cipro] AdvReac Nausea & Verified 04/10/20 09:15 Vomiting Physical Exam Vitals: Vital Signs Temp Pulse Pulse Resp BP BP Pulse Ox 04/11/20 08:08 97.5 F L 59 L 16 94/52 99 04/11/20 03:00 73 04/11/20 02:50 98.0 F 73 83/43 96 04/10/20 19:58 97.9 F 77 99/63 98 04/10/20 15:00 98.4 F 16 93/58 99 04/10/20 12:14 97.5 F L 71 18 96/64 95 04/10/20 11:00 71 18 96/64 98 04/10/20 10:00 18 98 Intake and Output 04/10/20 04/11/2020 22:59 06:59 14:59 Output Total 0 Balance 0 Output: Urine 0 Other: Voiding Method Toilet Toilet Toilet # Voids 1 0 - Constitutional General appearance: no acute distress - Respiratory Respiratory: bilateral: CTA - Cardiovascular Rhythm: regular Heart sounds: normal: S1, S2 Results 04/11/20 06:07 04/11/20 06:07 Cardiac Enzymes 04/10/20 04/10/20 Range/Units 11:47 15:21 Troponin I <0.012 <0.012 (0.000-0.034) ng/mL CBC 04/11/20 Range/Units 06:07 WBC 13.8 H (3.8-10.6) k/uL RBC 3.43 L (4.30-5.90) m/uL Hgb 10.0 L (13.0-17.5) gm/dL Hct 31.6 L (39.0-53.0) % Plt Count 334 (150-450) k/uL Comprehensive Metabolic Panel 04/11/20 Range/Units 06:07 Sodium 131 L (137-145) mmol/L Potassium 3.3 L (3.5-5.1) mmol/L Chloride 102 (98-107) mmol/L Carbon Dioxide 26 (22-30) mmol/L BUN 15 (9-20) mg/dL Creatinine 0.35 L (0.66-1.25) mg/dL Glucose 119 H (74-99) mg/dL Calcium 7.7 L (8.4-10.2) mg/dL Current Medications Generic Name Dose Route Start Last Admin Trade Name Freq PRN Reason Stop Dose Admin Acetaminophen 650 mg 04/10/20 09:37 04/11/20 08:57 Tylenol Tab PO 650 mg Q6HR PRN Administration Mild Pain or Fever > 100.5 Hydrocodone Bitart/Acetaminophen 0.5 - 1 each 04/10/20 21:00 04/11/20 08:48 [place] 5-325 PO Not Given BID ALVIN Hydrocodone Bitart/Acetaminophen 0.5 - 1 each 04/10/20 12:17 04/10/20 22:38 [place] 5-325 PO 0.5 each Q12H PRN Administration Pain Aspirin 81 mg 04/12/20 09:00 Aspirin PO MOWEFR ALVIN Atorvastatin Calcium 80 mg 04/10/20 17:30 04/10/20 17:04 Lipitor PO 80 mg W/SUPPER ALVIN Administration Calcium Carbonate/Glycine 1,000 mg 04/10/20 12:14 Tums PO Q4HR PRN Dyspepsia Calcium Carbonate/Glycine 1,000 mg 04/11/20 09:00 04/11/20 08:44 Tums PO 1,000 mg DAILY ALVIN Administration Carvedilol 3.125 mg 04/11/20 17:30 Coreg PO BID-W/MEALS ALVIN Cyanocobalamin 1,000 mcg 04/11/20 09:00 04/11/20 08:45 Vitamin B-12 PO 1,000 mcg DAILY ALVIN Administration Docusate Sodium 100 mg 04/11/20 21:00 Colace PO BID ALVIN Sodium Chloride 1,000 mls @ 80 mls/hr 04/10/20 09:45 04/11/20 09:10 Saline 0.9% IV 80 mls/hr .[id number] ALVIN Administration Magnesium Sulfate/Dextrose 1 100 mls @ 100 mls/hr 04/11/20 09:00 04/11/20 08:48 gm/ IV Solution IVPB 04/11/20 10:59 100 mls/hr Q1H ALVIN Administration Insulin Detemir 10 unit 04/10/20 21:00 04/10/20 21:13 Levemir SQ 10 unit HS ALVIN Administration Loratadine 10 mg 04/11/20 09:00 04/11/20 08:46 Claritin PO 10 mg DAILY ALVIN Administration Magnesium Oxide 400 mg 04/11/20 09:00 04/11/20 08:46 Mag-Ox PO 400 mg DAILY ALVIN Administration Multivitamins 1 each 04/11/20 09:00 04/11/20 08:46 Theragran PO 1 each DAILY ALVIN Administration Naloxone HCl 0.2 mg 04/10/20 12:14 Narcan IV Q2M PRN Opioid Reversal Nitroglycerin 0.4 mg 04/10/20 12:17 Nitrostat SUBLINGUAL Q5M PRN Chest Pain Patient's Own ( 10 mg 04/10/20 12:17 Chlorpromazine 10 Mg PO ) Q6H PRN HICCUPS Ondansetron HCl 4 mg 04/10/20 09:37 Zofran IVP Q8HR PRN Nausea And Vomiting Ondansetron HCl 4 mg 04/10/20 12:17 Zofran PO Q8H PRN Nausea Pantoprazole Sodium 40 mg 04/10/20 17:30 04/11/20 08:43 Protonix PO 40 mg AC-BID ALVIN Administration Rivaroxaban 20 mg 04/10/20 17:30 04/10/20 17:04 Xarelto PO 20 mg W/SUPPER ALVIN Administration Sacubitril/Valsartan 1 each 04/10/20 17:30 04/11/20 09:01 Entresto 24 Mg-26 Mg Tablet PO 1 each BID-W/MEALS ALVIN Administration Intake and Output 04/10/20 04/11/20 04/11/20 22:59 06:59 14:59 Output Total 0 Balance 0 Output: Urine 0 Other: Voiding Method Toilet Toilet Toilet # Voids 1 0 04/11/20 06:07 04/11/20 06:07 Assessment and Plan Assessment: Assessment #1 atypical chest pain #2 coronary artery disease #3 ischemic cardiomyopathy and status post AICD #4 pancreatic cancer #5 paroxysmal atrial fibrillation Plan #1 acute coronary event was ruled out #2 consider conservative medical approach #3 IV fluid #4 consider adding oral nitrates once the pressure improved #5 follow-up with the patient #6 obtaining an echocardiogram was Doppler
[2020-04-11 10:44] LABS: Glucose,Whole Blood 146 mg/dL (75-99)
[2020-04-11 14:52] VITALS: BP 91/55; PULSE 69; TEMP 97.9
--- NOTE | 2020-04-11 15:00 | P.DS ---
Providers Date of admission: 04/10/20 09:37 Attending physician: Irineo Huerta MD Consults: 04/10/20 09:39 Consult Physician Routine Consulting Provider: Da Cervantes Consult Reason/Comments: chest pain Do you want consulting provider notified?: Yes Primary care physician: Collins [facility] Hospital Course: 1. Chest pain, atypical 2. Hypotension 3. Chronic Systolic Heart Failure, NYHA Class II, EF 30-35%, s/p AICD 4. Paroxysmal Atrial Fibrillation, rate controlled 5. Pancreatic Cancer 6. Hypertension 7. Hyperlipidemia 8. Diabetes Type II 9. CAD 10. Chronic Pain This 75-year-old man with past medical history of heart failure with reduced ejection fraction status post AICD, pancreatitis cancer, permanent atrial fibrillation, chronic pain, HTN/HLD/CAD/DM 2 presented with atypical chest pain, took 2 nitroglycerin and presented with hypotension but resolution of his chest pain, negative troponins, nonischemic EKG; medicine admitted to observation to ensure no rising troponins as well as to monitor blood pressure. Pt was noted to be volume down and improved with fluid replacement. His lasix was held for one day. Cardiology was consulted and recommended some additional fluids and repeat echo, but no acute intervention. For patient's blood pressure, he remained asymptomatic without orthostatic symptoms, however, coreg was downtitrated to 3.125mg BID. Pt was discharged home with routine follow up. He was given a more comprehensive bowel regimen including docusate, senna, miralax. His megace was discontinued. Patient Condition at Discharge: Fair Plan - Discharge Summary Discharge Rx Participant: No New Discharge Prescriptions: New Docusate [Colace] 100 mg PO BID #60 cap carvediloL [Coreg] 3.125 mg PO BID-W/MEALS tab Insulin Detemir (Levemir) [Levemir] 10 unit SQ HS syr polyethylene glycoL 3350 [Miralax] 17 gm PO DAILY PRN #10 packet PRN Reason: Constipation Sennosides [Senna] 8.6 mg PO DAILY PRN #30 tablet PRN Reason: Constipation Continue Magnesium Gluconate [Magonate] 500 mg PO DAILY Borage Oil 1000 Mg 1,000 mg PO DAILY Nitroglycerin Sl Tabs [Nitrostat] 0.4 mg SUBLINGUAL Q5M PRN #25 tab PRN Reason: Chest Pain Multivitamin [Men's Multi-Vitamin] 1 tab PO DAILY Cyanocobalamin [Vitamin B-12] 1,000 mcg PO DAILY Calcium Carbonate [Calcium] 1,200 mg PO DAILY Sacubitril/Valsartan [Entresto 24 mg-26 mg Tablet] 1 tab PO BID-W/MEALS Rivaroxaban [Xarelto] 20 mg PO W/SUPPER Atorvastatin [Lipitor] 80 mg PO W/SUPPER Loratadine [Claritin] 10 mg PO DAILY Ondansetron [Zofran] 4 mg PO Q8H PRN PRN Reason: Nausea HYDROcodone/APAP 5-325MG [[place] 5-325] 0.5 - 1 tab PO Q12H PRN PRN Reason: Pain HYDROcodone/APAP 5-325MG [[place] 5-325] 0.5 - 1 tab PO BID Aspirin EC [Ecotrin Low Dose] 81 mg PO MOWEFR Pantoprazole [Protonix] 40 mg PO BID Alpha Green 1,000 mg PO DAILY Acetaminophen Tab [Tylenol] 325 - 650 mg PO Q4H PRN PRN Reason: Pain chlorproMAZINE [Thorazine] 10 mg PO Q6H PRN PRN Reason: HICCUPS Changed Furosemide [Lasix] 20 mg PO DAILY PRN #30 tab PRN Reason: Weight gain or leg swelling Discontinued Carvedilol [Coreg] 6.25 mg PO BID-W/MEALS Insulin Glargine,Hum.rec.anlog [Lantus Solostar] 16 unit SQ HS Megestrol 40mg/Ml 80 mg PO DAILY Discharge Medication List Borage Oil 1000 Mg 1,000 mg PO DAILY 07/28/17 [History] Magnesium Gluconate [Magonate] 500 mg PO DAILY 07/28/17 [History] Nitroglycerin Sl Tabs [Nitrostat] 0.4 mg SUBLINGUAL Q5M PRN #25 tab 07/31/17 [Rx] Multivitamin [Men's Multi-Vitamin] 1 tab PO DAILY 12/02/17 [History] Calcium Carbonate [Calcium] 1,200 mg PO DAILY 09/11/19 [History] Cyanocobalamin [Vitamin B-12] 1,000 mcg PO DAILY 09/11/19 [History] Rivaroxaban [Xarelto] 20 mg PO W/SUPPER 09/11/19 [History] Sacubitril/Valsartan [Entresto 24 mg-26 mg Tablet] 1 tab PO BID-W/MEALS 09/11/19 [History] Atorvastatin [Lipitor] 80 mg PO W/SUPPER 01/28/20 [History] Acetaminophen Tab [Tylenol] 325 - 650 mg PO Q4H PRN 04/10/20 [History] Alpha Green 1,000 mg PO DAILY 04/10/20 [History] Aspirin EC [Ecotrin Low Dose] 81 mg PO MOWEFR 04/10/20 [History] HYDROcodone/APAP 5-325MG [[place] 5-325] 0.5 - 1 tab PO BID 04/10/20 [History] HYDROcodone/APAP 5-325MG [[place] 5-325] 0.5 - 1 tab PO Q12H PRN 04/10/20 [History] Loratadine [Claritin] 10 mg PO DAILY 04/10/20 [History] Ondansetron [Zofran] 4 mg PO Q8H PRN 04/10/20 [History] Pantoprazole [Protonix] 40 mg PO BID 04/10/20 [History] chlorproMAZINE [Thorazine] 10 mg PO Q6H PRN 04/10/20 [History] Docusate [Colace] 100 mg PO BID #60 cap 04/11/20 [Rx] Furosemide [Lasix] 20 mg PO DAILY PRN #30 tab 04/11/20 [Rx] Insulin Detemir (Levemir) [Levemir] 10 unit SQ HS syr 04/11/20 [Rx] Sennosides [Senna] 8.6 mg PO DAILY PRN #30 tablet 04/11/20 [Rx] carvediloL [Coreg] 3.125 mg PO BID-W/MEALS tab 04/11/20 [Rx] polyethylene glycoL 3350 [Miralax] 17 gm PO DAILY PRN #10 packet 04/11/20 [Rx] Follow up Appointment(s)/Referral(s): Enzo Vicente MD [STAFF PHYSICIAN] - 04/18/20 1:30 pm (Appt is with Yesika GONZALEZ) Collins Waddell [Primary Care Provider] - 04/18/20 4:30 pm Patient Instructions/Handouts: Chest Pain (GEN) Discharge Disposition: HOME SELF-CARE
[2020-04-11 16:21] LABS: Glucose,Whole Blood 174 mg/dL (75-99)
[2020-04-11] MEDS ORDERED: carvediloL 3.125 MG TAB PO SCH (17:30)
[2020-04-11] MEDS ORDERED: DOCUSATE 100 MG CAP PO SCH (21:00)
[2020-04-12] MEDS ORDERED: ASPIRIN 81 MG PO SCH (09:00)
--- NOTE | 2020-04-12 13:47 | ECHOF ---
Referral Reason:chest pain MEASUREMENTS -------- HEIGHT: 182.9 cm WEIGHT: 72.6 kg BP: IVSd: 0.9 cm (0.6 - 1.1) LVIDd: 5.5 cm (3.9 - 5.3) LVPWd: 1.4 cm (0.6 - 1.1) IVSs: 1.3 cm LVIDs: 4.0 cm LVPWs: 1.5 cm LA Diam: 4.2 cm (2.7 - 3.8) LAESV Index (A-L): 36.09 ml/m Ao Diam: 3.1 cm (2.0 - 3.7) AV Cusp: 2.2 cm (1.5 - 2.6) LA Diam: 5.0 cm (2.7 - 3.8) MV EXCURSION: 23.063 mm (> 18.000) MV EF SLOPE: 79 mm/s (70 - 150) EPSS: 1.8 cm MV E Jason: 0.45 m/s MV DecT: 201 ms MV A Jason: 0.76 m/s MV E/A Ratio: 0.60 AR PHT: 631 ms RAP: 5.00 mmHg RVSP: 29.49 mmHg FINDINGS -------- Paced rhythm. This was a techncally difficult study with suboptimal views, , Lumason utilized for enhancement of im ages. The left ventricular size is normal. There is mild concentric left ventricular hypertrophy. Overa ll left ventricular systolic function is moderately impaired with, an EF between 35 - 40 %. Anterse ptal Hypokinesis Lateral hypokinesis Inferior Hypokinesis [place] Hypokinesis. The right ventricle is normal in size. The left atrium is moderately dilated. LA is moderately dilated 34-39 ml/m2 The right atrial size is normal. 5.0mg OF Lumason UTLIZED: 2 OR MORE WALL SEGMENTS NOT VISUALIZED. There is mild aortic regurgitation. Mild mitral regurgitation is present. Mild tricuspid regurgitation present. Right ventricular systolic pressure is normal at < 35 mmHg. There is no pulmonic regurgitation present. The aortic root size is normal. There is no pericardial effusion. CONCLUSIONS -------- 1. The left ventricular size is normal. 2. There is mild concentric left ventricular hypertrophy. 3. Overall left ventricular systolic function is moderately impaired with, an EF between 35 - 40 %. 4. Anterseptal Hypokinesis 5. Lateral hypokinesis 6. Inferior Hypokinesis 7. [place] Hypokinesis. 8. The right ventricle is normal in size. 9. The left atrium is moderately dilated. 10. LA is moderately dilated 34-39 ml/m2 11. The right atrial size is normal. 12. There is mild aortic regurgitation. 13. Mild mitral regurgitation is present. 14. Mild tricuspid regurgitation present. EXECUTIVE TALENT ACQUISITION CONSULTANT: Amy Zepeda RDCS
== END 2020-04-11 18:00 | disposition home or self-care (01) ==
LOC: EC 08:20 → 3NCARDOBS 09:37
PROVIDERS: ADMIT Internal Medicine; ATTEND Internal Medicine
DX: R07.89 Other chest pain (principal); E11.9 Type 2 diabetes mellitus without complications; E78.5 Hyperlipidemia, unspecified; E87.1 Hypo-osmolality and hyponatremia; G89.29 Other chronic pain; I11.0 Hypertensive heart disease with heart failure; I25.2 Old myocardial infarction; I25.10 Atherosclerotic heart disease of native coronary artery without angina pectoris; I25.5 Ischemic cardiomyopathy; I45.10 Unspecified right bundle-branch block; I45.2 Bifascicular block; I48.21 Permanent atrial fibrillation; I50.22 Chronic systolic (congestive) heart failure; K21.9 Gastro-esophageal reflux disease without esophagitis; K44.9 Diaphragmatic hernia without obstruction or gangrene; M19.041 Primary osteoarthritis, right hand; M19.042 Primary osteoarthritis, left hand; Z79.01 Long term (current) use of anticoagulants; Z79.4 Long term (current) use of insulin; Z79.899 Other long term (current) drug therapy; Z80.0 Family history of malignant neoplasm of digestive organs; Z80.42 Family history of malignant neoplasm of prostate; Z83.3 Family history of diabetes mellitus; Z85.07 Personal history of malignant neoplasm of pancreas; Z95.810 Presence of automatic (implantable) cardiac defibrillator; Z92.21 Personal history of antineoplastic chemotherapy
CPT/HCPCS: 93005 ×2; 96365; 96366; 96361; 99285; 36415; 80053; 80048; 83605; 83690; 83735 ×2; 84484; 85025 ×2; 85610; 85730; 81001; 86301; 71045; G0378 ×2; C8929; J3475; Q9950; 93306

== ENCOUNTER 2020-05-15 18:07 | Emergency (ER) | payer MEDICARE, OTHER ==
[2020-05-15 18:18] VITALS: TEMP 97.5
[2020-05-15] MEDS ORDERED: SODIUM CHLORIDE 0.9% 1,000 ML IV STA (18:31)
[2020-05-15 18:46] LABS: Anisocytosis Slight; Basophils % (A) 0 %; Eosinophils % (A) 0 %; HCT 37.8 % (39.0-53.0); Lymphocytes % (A) 10 %; MCH 29.5 pg (25.0-35.0); MCHC 31.6 g/dL (31.0-37.0); MCV 93.2 fL (80.0-100.0); Mean Platelet Volume 8.3; Monocytes # (A) 0.6 k/uL (0-1.0); Monocytes % (A) 6 %; Neutrophils # (A) 7.5 k/uL (1.3-7.7); Neutrophils % (A) 81 %; Platelet Count 360 k/uL (150-450); RBC 4.06 m/uL (4.30-5.90); RDW 18.7 % (11.5-15.5); WBC 9.3 k/uL (3.8-10.6)
[2020-05-15] MEDS ORDERED: ONDANSETRON 4 MG/2 ML VIAL IVP STA (18:52)
[2020-05-15 18:55] LABS: ALT 84 U/L (4-49); AST 102 U/L (17-59); African American GFR (CKD) 70 (>60 ml/min/1.73 sqM); Albumin 2.3 g/dL (3.5-5.0); Alkaline Phosphatase 857 U/L (38-126); Anion Gap 11 mmol/L; Blood Urea Nitrogen 26 mg/dL (9-20); Carbon Dioxide 21 mmol/L (22-30); Chloride 95 mmol/L (98-107); Glucose 127 mg/dL (74-99); Non-African American GFR(CKD) 60 (>60 ml/min/1.73 sqM); Potassium 3.7 mmol/L (3.5-5.1); Sodium 127 mmol/L (137-145); Total Bilirubin 0.7 mg/dL (0.2-1.3); Total Protein 4.9 g/dL (6.3-8.2)
--- NOTE | 2020-05-15 19:24 | XR ---
EXAMINATION TYPE: XR KUB DATE OF EXAM: 05/15/2020 COMPARISON: 01/28/2020 HISTORY: Abdominal pain nausea and vomiting TECHNIQUE: 2 views supine FINDINGS: There is biliary stent noted. There is no sign of intestinal obstruction or pneumoperitoneu m. Fecal pattern is normal. There is no evidence of a mass. There is a second smaller biliary stent. There are no pathologic calcifications over the kidneys. There are clips from cholecystectomy. IMPRESSION: Nonacute abdomen. No bowel obstruction. No change compared to old exam.
[2020-05-15] MEDS ORDERED: SODIUM CHLORIDE 0.9% 500 ML 500 ML IV ONE (19:52)
--- NOTE | 2020-05-15 19:55 | ED ---
Nausea/Vomiting/Diarrhea HPI - General Chief complaint: Nausea/Vomiting/Diarrhea Stated complaint: nausea/dehydration Source: patient, EMS Mode of arrival: EMS Limitations: no limitations - History of Present Illness Initial comments: Patient is a 75-year-old male with past nuchal history of pancreatic cancer, A. fib on Xarelto who presents to the emergency department with reported nausea and vomiting. Patient last received chemotherapy on March 22. He had 2 rounds of chemo for which he did not tolerate very well and and agreed that the patient was going to pursue holistic measures. He does have a biliary stent. Sees a GI doctor out of [facility]. Dr. West is his GI doctor. Only states that his blood pressure runs low around 100 however was notably even lower at home. Admits to having nausea with an episode of vomiting today. Denies it is nonbloody. Does have antiemetics at home however did not try them. Denies any chest pain or shortness of breath. Does admit to midepigastric discomfort has a history of heart failure with pacemaker and ICD placement. Has a port in the right chest wall. Denies dysuria, hematuria or difficulty voi ding. Denies diarrhea. Admits to constipation. No fevers or chills. No other alleviating, Perceptin or modifying factors - Related Data Home Medications Medication Instructions Recorded Confirmed Borage Oil 1000 Mg 1,000 mg PO DAILY 07/28/17 05/15/20 Magnesium Gluconate [Magonate] 500 mg PO DAILY 07/28/17 05/15/20 Multivitamin [Men's Multi-Vitamin] 1 tab PO DAILY 12/02/17 05/15/20 Calcium Carbonate [Calcium] 1,200 mg PO DAILY 09/11/19 05/15/20 Cyanocobalamin [Vitamin B-12] 1,000 mcg PO DAILY 09/11/19 05/15/20 Rivaroxaban [Xarelto] 20 mg PO W/SUPPER 09/11/19 05/15/20 Sacubitril/Valsartan [Entresto 24 1 tab PO BID-W/MEALS 09/11/19 05/15/20 mg-26 mg Tablet] Atorvastatin [Lipitor] 80 mg PO W/SUPPER 01/28/20 05/15/20 Acetaminophen Tab [Tylenol] 325 - 650 mg PO Q4H PRN 04/10/20 05/15/20 Alpha Green 1,000 mg PO DAILY 04/10/20 05/15/20 Aspirin EC [Ecotrin Low Dose] 81 mg PO MOWEFR 04/10/20 05/15/20 HYDROcodone/APAP 5-325MG [Jones 0.5 - 1 tab PO BID PRN 04/10/20 05/15/20 5-325] Loratadine [Claritin] 10 mg PO DAILY 04/10/20 05/15/20 Ondansetron [Zofran] 4 mg PO Q8H PRN 04/10/20 05/15/20 Pantoprazole [Protonix] 40 mg PO BID 04/10/20 05/15/20 Carvedilol [Coreg] 3.125 mg PO BID 05/15/20 05/15/20 Docusate [Colace] 100 mg PO BID PRN 05/15/20 05/15/20 Insulin Detemir (Levemir) [Levemir] 4 unit SQ HS 05/15/20 05/15/20 Spironolactone [Aldactone] 25 mg PO BID 05/15/20 05/15/20 Previous Rx's Medication Instructions Recorded Nitroglycerin Sl Tabs [Nitrostat] 0.4 mg SUBLINGUAL Q5M PRN #25 tab 07/31/17 Furosemide [Lasix] 20 mg PO DAILY PRN #30 tab 04/11/20 Sennosides [Senna] 8.6 mg PO DAILY PRN #30 tablet 04/11/20 polyethylene glycoL 3350 [Miralax] 17 gm PO DAILY PRN #10 packet 04/11/20 Allergies Allergy/AdvReac Type Severity Reaction Status Date / Time Sulfa (Sulfonamide Allergy Rash/Hives Verified 05/15/20 21:27 Antibiotics) ciprofloxacin [From Cipro] AdvReac Nausea & Verified 05/15/20 21:27 Vomiting Review of Systems ROS Statement: Those systems with pertinent positive or pertinent negative responses have been documented in the HPI. ROS Other: All systems not noted in ROS Statement are negative. Past Medical History Past Medical History: Atrial Fibrillation, Coronary Artery Disease (CAD), Cancer , Heart Failure, Hypertension, Myocardial Infarction (SD), Osteoarthritis (OA) Additional Past Medical History / Comment(s): Pancreatic cancer with last chemo 7/29/20-pt no longer wants chemo, newly diagnosed IDDM, cholangitis, hyponatremia, EF 35%/AICD, arthritis bilateral hands/fingers, abdominal hernia, kathy fever as a child. Last Myocardial Infarction Date:: 07/28/2017 History of Any Multi-Drug Resistant Organisms: None Reported Past Surgical History: Cholecystectomy, Heart Catheterization With Stent, Tonsillectomy Additional Past Surgical History / Comment(s): ICD, ERCPs/stent placed to bile duct 2019- which was removed and replaced with two stents on 01/24/10 at [facility], R lung biopsy at [facility], colonoscopies. Past Anesthesia/Blood Transfusion Reactions: No Reported Reaction Date of Last Stent Placement:: 07/28/2017 Past Psychological History: No Psychological Hx Reported Smoking Status: Never smoker Past Alcohol Use History: Occasional Past Drug Use History: None Reported - Past Family History Father Family Medical History: Cancer Additional Family Medical History / Comment(s): colon and prostate cancer Son(s) Family Medical History: Cancer Additional Family Medical History / Comment(s): colon ca- 2018 Mother Family Medical History: Diabetes Mellitus General Exam Limitations: no limitations General appearance: alert, in no apparent distress Head exam: Present: atraumatic, normocephalic, normal inspection Eye exam: Present: normal appearance, PERRL, EOMI. Absent: scleral icterus, conjunctival injection, periorbital swelling ENT exam: Present: normal exam, mucous membranes moist Neck exam: Present: normal inspection. Absent: tenderness, meningismus, lymphadenopathy Respiratory exam: Present: normal lung sounds bilaterally. Absent: respiratory distress, wheezes, rales, rhonchi, stridor Cardiovascular Exam: Present: regular rate, normal rhythm, normal heart sounds. Absent: systolic murmur, diastolic murmur, rubs, gallop, clicks GI/Abdominal exam: Present: soft, distended, tenderness (epigastric), diminished bowel sounds. Absent: guarding, rebound, rigid Extremities exam: Present: normal inspection, full ROM, normal capillary refill. Absent: tenderness, pedal edema, joint swelling, calf tenderness Back exam: Present: normal inspection Neurological exam: Present: alert, oriented X3, CN II-XII intact Psychiatric exam: Present: normal mood, flat affect Skin exam: Present: warm, dry, intact, normal color. Absent: rash Course Vital Signs 09/21/20 09/21/20 09/21/20 18:11 18:23 18:29 Temperature 97.5 F L Pulse Rate 97 90 Respiratory 16 16 Rate Blood Pressure 75/45 103/82 82/51 O2 Sat by Pulse 96 97 Oximetry 05/15/20 05/15/20 05/15/20 18:40 18:41 18:50 Temperature Pulse Rate 91 99 78 Respiratory 16 16 16 Rate Blood Pressure 64/51 79/51 79/51 O2 Sat by Pulse 97 97 95 Oximetry 05/15/20 05/15/20 05/15/20 19:00 19:10 19:20 Temperature Pulse Rate 91 90 Respiratory 16 16 Rate Blood Pressure 74/56 74/56 86/53 O2 Sat by Pulse 94 L 96 95 Oximetry 05/15/20 05/15/20 05/15/20 19:30 19:49 20:30 Temperature Pulse Rate 99 Respiratory 16 16 Rate Blood Pressure 67/52 76/51 76/54 O2 Sat by Pulse 100 95 Oximetry 05/15/20 05/15/20 05/15/20 20:45 20:57 21:00 Temperature Pulse Rate 82 Respiratory 16 16 Rate Blood Pressure 83/50 69/51 69/51 O2 Sat by Pulse 95 95 94 L Oximetry 05/15/20 05/15/20 05/15/20 21:15 21:30 21:45 Temperature Pulse Rate 95 Respiratory 16 Rate Blood Pressure 65/45 64/45 74/47 O2 Sat by Pulse 95 94 L 96 Oximetry 05/15/20 05/15/20 21:47 22:00 Temperature Pulse Rate 95 90 Respiratory 16 16 Rate Blood Pressure 69/56 80/56 O2 Sat by Pulse 95 93 L Oximetry Medical Decision Making - Medical Decision Making Upon arrival patient is placed into room 8. There are history and physical exam was performed per patient is notably hypotensive. Peripheral IV is established. Laboratory studies were conducted. Lab studies are remarkable for a sodium of 127. AST 102. ALP 84. Alk phos 857. BNP 656. EKG is performed symmetries low-voltage. Patient had a KUB performed symmetries a nonacute abdomen with no bowel obstruction. Patient is sent back for a CT of his abdomen and pelvis which demonstrates significant dilation of the stomach. Moderate sized bilateral pleural effusions with a mild pericardial effusion. Bedside ultrasound is performed and demonstrates no signs of tamponade. Mass in the pancreatic head is unchanged. Patient also has constipation. I discussed results of the patient. He remained persistently hypotensive and therefore he is started on levophed after 1 L of normal saline. NG tube is ordered. I did recommend transfer to [facility] as this is where the patient's GI doctor is. He will wear ICU care. The patient's family agreed to this. I called and discussed the case with Dr. Guzman at 8:55 pm. Received callback at [phone] and they stated the patient would be accepted. They are working on direct admission. I'm currently awaiting callback on a bed number. Case is discussed with Dr. Marques she will take over his care at this time - Lab Data Result diagrams: 05/15/20 18:36 05/15/20 18:36 Lab Results 05/15/20 05/15/20 05/15/20 Range/Units 18:36 18:36 18:36 WBC 9.3 (3.8-10.6) k/uL RBC 4.06 L (4.30-5.90) m/uL Hgb 12.0 L (13.0-17.5) gm/dL Hct 37.8 L (39.0-53.0) % MCV 93.2 (80.0-100.0) fL MCH 29.5 (25.0-35.0) pg MCHC 31.6 (31.0-37.0) g/dL RDW 18.7 H (11.5-15.5) % Plt Count 360 (150-450) k/uL Neutrophils % 81 % Lymphocytes % 10 % Monocytes % 6 % Eosinophils % 0 % Basophils % 0 % Neutrophils # 7.5 (1.3-7.7) k/uL Lymphocytes # 1.0 (1.0-4.8) k/uL Monocytes # 0.6 (0-1.0) k/uL Eosinophils # 0.0 (0-0.7) k/uL Basophils # 0.0 (0-0.2) k/uL Anisocytosis Slight Sodium 127 L (137-145) mmol/L Potassium 3.7 (3.5-5.1) mmol/L Chloride 95 L (98-107) mmol/L Carbon Dioxide 21 L (22-30) mmol/L Anion Gap 11 mmol/L BUN 26 H (9-20) mg/dL Creatinine 1.19 (0.66-1.25) mg/dL Est GFR (CKD-EPI)AfAm 70 (>60 ml/min/1.73 sqM) Est GFR (CKD-EPI)NonAf 60 (>60 ml/min/1.73 sqM) Glucose 127 H (74-99) mg/dL Plasma Lactic Acid Enio 1.3 (0.7-2.0) mmol/L Calcium 8.0 L (8.4-10.2) mg/dL Total Bilirubin 0.7 (0.2-1.3) mg/dL AST 102 H (17-59) U/L ALT 84 H (4-49) U/L Alkaline Phosphatase 857 H (38-126) U/L Troponin I (0.000-0.034) ng/mL NT-Pro-B Natriuret Pep pg/mL Total Protein 4.9 L (6.3-8.2) g/dL Albumin 2.3 L (3.5-5.0) g/dL Lipase <10 L (23-300) U/L 05/15/20 05/15/20 Range/Units 18:36 18:36 WBC (3.8-10.6) k/uL RBC (4.30-5.90) m/uL Hgb (13.0-17.5) gm/dL Hct (39.0-53.0) % MCV (80.0-100.0) fL MCH (25.0-35.0) pg MCHC (31.0-37.0) g/dL RDW (11.5-15.5) % Plt Count (150-450) k/uL Neutrophils % % Lymphocytes % % Monocytes % % Eosinophils % % Basophils % % Neutrophils # (1.3-7.7) k/uL Lymphocytes # (1.0-4.8) k/uL Monocytes # (0-1.0) k/uL Eosinophils # (0-0.7) k/uL Basophils # (0-0.2) k/uL Anisocytosis Sodium (137-145) mmol/L Potassium (3.5-5.1) mmol/L Chloride (98-107) mmol/L Carbon Dioxide (22-30) mmol/L Anion Gap mmol/L BUN (9-20) mg/dL Creatinine (0.66-1.25) mg/dL Est GFR (CKD-EPI)AfAm (>60 ml/min/1.73 sqM) Est GFR (CKD-EPI)NonAf (>60 ml/min/1.73 sqM) Glucose (74-99) mg/dL Plasma Lactic Acid Enio (0.7-2.0) mmol/L Calcium (8.4-10.2) mg/dL Total Bilirubin (0.2-1.3) mg/dL AST (17-59) U/L ALT (4-49) U/L Alkaline Phosphatase (38-126) U/L Troponin I 0.014 (0.000-0.034) ng/mL NT-Pro-B Natriuret Pep 656 pg/mL Total Protein (6.3-8.2) g/dL Albumin (3.5-5.0) g/dL Lipase (23-300) U/L - EKG Data EKG Comments: EKG demonstrates a sinus rhythm with PVCs. Rate of 99. LA interval 132. QRS 136. QTC of 533. No acute ST segment elevations or depressions. Right bundle- branch block present Disposition Clinical Impression: Ischemic cardiomyopathy, Nausea & vomiting, Gastric outlet obstruction, Pancreatic cancer Disposition: OTHER INSTITUTION NOT DEFINED Condition: Serious Is patient prescribed a controlled substance at d/c from ED?: No Referrals: Collins Waddell [Primary Care Provider] - 1-2 days - Out of Hospital Transfer - Req. Specs Out of Hospital Transfer - Requested Specifics: Other Non-Acute ([facility])
[2020-05-15] MEDS ORDERED: NOREPINEPHRINE 32 MG in SODIUM CHLORIDE 0.9% 218 ML IV SCH (20:00)
--- NOTE | 2020-05-15 20:07 | CT ---
EXAMINATION TYPE: CT abdomen pelvis w con DATE OF EXAM: 05/15/2020 COMPARISON: PET/CT scan 02/25/2020 HISTORY: c/o constipation Pancreatic cancer CT DLP: 1214.2 mGycm Automated exposure control for dose reduction was used. CONTRAST: Performed with IV Contrast, patient injected with 100 mL of Isovue 300. There is moderate bilateral pleural effusions. There is infiltrate or atelectasis at the lung bases. There is mild pericardial effusion. There is some air in the anterior biliary tree. There is biliary stent noted. There is no discrete liver mass. The stomach is markedly dilated with fluid. There is pa ncreatic atrophy with dilation of the pancreatic duct. Spleen is intact. There is 4.5 cm rounded low- density mass at the pancreatic head. There is no evidence of free air. Kidneys show satisfactory contrast opacification. There is no hydro nephrosis. Delayed images show very little contrast excretion into the calyces. There is no retroperi toneal adenopathy. There is mild abdominal ascites fluid. Bladder distends smoothly. Prostate measure s 4.7 cm. There is no inguinal hernia. There is retained fecal material throughout the large bowel do wn to the rectum. Sigmoid colon measures almost 5 cm. I do not see any significant small bowel dilati on. Lumbar vertebra have normal alignment. Bony pelvis is intact. Hip joints are intact. The lumbar verte bra have normal alignment. There is no compression fracture. There is spurring of the endplates. IMPRESSION: Moderate-sized bilateral pleural effusions are new compared to old exam. Mild pericardial effusion is new compared to old exam. There is mild air in the biliary tree. I do not see evidence for biliary obstruction. There are 2 ryan iary stents noted. There is markedly dilated fluid-filled stomach suggestive of gastric outlet obstruction. This is a ch wild compared to old exam. Mass in the pancreatic head unchanged. Decreased delayed excretion of contrast suggestive of some renal impairment. Constipation. Mild abdominal ascites. There is increased fecal material compared to old exam. Ascites fluid is new compared to old exam.
[2020-05-15 20:57] VITALS: RESP 16
--- NOTE | 2020-05-16 00:35 | XR ---
EXAMINATION TYPE: XR chest 1V portable DATE OF EXAM: 05/15/2020 COMPARISON: 04/10/2020 HISTORY: Check tube placement TECHNIQUE: Single view FINDINGS: There is nasogastric tube in the tip is not well seen. The tip is probably in the gastric b ha. There is right central venous catheter with tip in the superior vena cava. There is some mild pl eural effusions and basilar pulmonary infiltrates at the lung bases. Heart size is normal. There is n o heart failure. IMPRESSION: NG tube is probably in the mid stomach. There are new bilateral lower lobe pulmonary infiltrates and pleural fluid compared to old exam.
[2020-05-16 01:07] VITALS: BP 86/64; PULSE 101
== END 2020-05-16 00:15 | disposition other institution (70) ==
LOC: EC 18:07
DX: C25.9 Malignant neoplasm of pancreas, unspecified (principal); K31.1 Adult hypertrophic pyloric stenosis; I25.5 Ischemic cardiomyopathy; I11.0 Hypertensive heart disease with heart failure; I50.9 Heart failure, unspecified; K31.89 Other diseases of stomach and duodenum; J90 Pleural effusion, not elsewhere classified; I31.3 Pericardial effusion (noninflammatory); K59.00 Constipation, unspecified; E11.9 Type 2 diabetes mellitus without complications; M19.042 Primary osteoarthritis, left hand; M19.041 Primary osteoarthritis, right hand; I48.91 Unspecified atrial fibrillation; I25.10 Atherosclerotic heart disease of native coronary artery without angina pectoris; I25.2 Old myocardial infarction; Z79.899 Other long term (current) drug therapy; Z79.01 Long term (current) use of anticoagulants; Z79.82 Long term (current) use of aspirin; Z79.4 Long term (current) use of insulin; Z88.2 Allergy status to sulfonamides; Z88.1 Allergy status to other antibiotic agents; Z95.5 Presence of coronary angioplasty implant and graft; Z95.810 Presence of automatic (implantable) cardiac defibrillator; Z95.828 Presence of other vascular implants and grafts
CPT/HCPCS: 93005; 83880; 80053; 83605; 83690; 84484; 85025; 86301; 71045; 74018; 74177; 99285; 96365; 96366 ×3; 96375; 96361; J2405; Q9967